=== PATIENT | male | born 1935 | race Caucasian/White ===

== ENCOUNTER 2020-04-29 23:52 | Emergency (ER) | payer OTHER ==
--- OUTSIDE RECORDS SUMMARY | 2020-04-29 23:55 | XMS REPORT | Continuity of Care Document ---
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, Medical systemic arterial Ce nter, (disorder) GUADALUPE [place] Hearing aid, Resolved Problem 12/20/2015 [place] device (physical Med ical object) Center CVA Active [facility] ILLNESS, Active [facility] UNSPECIFIED [facility] Medications Medication Details Route Status Patient Ordering Order Source Instructions Provider Date Lisinopril Notes: (Same [place] as: [address] [place] [address] Prinivil, Center Zestril) Plavix Notes: (Same Inactive [facility] As: Plavix) [address] [place] [address] clopidogrel 75 75 mg = 1 [place] mg oral tablet tab, PO, [address] [place] [address] Daily, # 90 Center tab, 2 Refill(s) Lipitor Notes: (Same No Longer [facility] As: Lipitor) [address] Iohexol Notes: (Same Inactive [facility] as:Omnipaque [address] [place] [address] 350). Center WASTE: F/P - Black; E - Municipal [facility] heparin sodium, Notes: No Longer [place] porcine 2500 porcine Active [address] [place] [address] UNT/ML heparin Center Injectable Solution Aspirin 325 MG Notes: (Do [place] [facility] Coated Not Crush) [facility] Medica l Tablet Do not crush Center or chew. Saline Flush Notes: (Same [place] Longer [place] 0.9% as: BD Active [address] [place] [address] Posiflush) [place] atorvastatin Notes: [place] Lipitor [address] saw palmetto 450 0 Refill(s) Active [facility] mg oral capsule 016 [facility] Fish Oil 1200 mg 1,200 mg = 1 Active [facility] oral capsule cap, PO, 016 Medical BID, 0 Center Refill(s) Centrum Silver 1 tab, PO, Active [place] Men's Daily, 0 016 Medical Refill(s) Center Saline Flush Notes: (Same No Longer [place] 0.9% as: BD Active 016 Medical Posiflush) Center Acetaminophen Notes: Do No Longer [place] not exceed 4 Active 016 Medical gm/day. Center (Same as: Tylenol) Sodium Chloride 1,000 mL, No Longer [place] 0.154 MEQ/ML Rate: 75 Active 016 Medical Injectable ml/hr, Center Solution Infuse over: 13.3 hr, Route: IV, Dosing Weight 65.455 kg, Total Volume: 1,000, Start date: 12/15/15 15:25:00 CDT, Duration: 30 day, Stop date: 01/14/16 15:24:00 CDT Lipitor Notes: (Same No Longer [facility] As: Lipitor) Active [address] [place] [address] heparin sodium, Notes: No Longer [place] porcine 2500 porcine Active 014 Medical UNT/ML heparin Center Injectable Solution Ibuprofen 400 MG Notes: (Same No Longer [facility] Oral Tablet as: Motrin) Active 014 Medical "Do Not Center Crush" Give with food. Aspirin 81 MG Notes: Do No Longer [place] Enteric Coated not crush or Active 014 Medi rosa Tablet chew. (Same Center As: Ecotrin) Saline Flush Notes: (Same [place] Longer [place] 0.9% as: BD Active 014 Medical Posiflush) Center Lipitor Notes: (Same Inactive [facility] As: Lipitor) [address] [place] [address] Tylenol Notes: Do No Longer [facility] not exceed 4 Active 014 Medical gm/day. Center (Same as: Tylenol) Saline Flush Notes: (Same No Longer [place] 0.9% as: BD Active 014 Medical Posiflush) Center atorvastatin Notes: ([place]: Lipitor) 014 [facility] Aspirin 81 MG Notes: Take Inactive [place] Chewable Tablet with food. 014 Medic al [place] aspirin 81 mg, PO, Active [facility] Daily, 0 014 Medical Refill(s) [place] Vitamin D3 1000 1,000 Active [facility] intl units oral IntlUnit = 1 014 Med ical tablet tab, PO, Center Daily, # 30 tab, 0 Refill(s) Garlic 1 tab, PO, Active [facility] preparation QAM, 0 014 Medical Refill(s) [place] Flax Seed Oil 1 tab, PO, [place] oral capsule BID, 0 014 [facility] Refill(s) [place] Centrum Silver 1 tab, PO, Active [place] oral tablet Daily, # 30 014 Medical tab, 0 Center Refill(s) Prilosec 40 mg, PO, Active [facility] Every Other 014 Medical Day, 0 Center Refill(s) lisinopril 10 mg 10 mg = 1 [place] oral tablet tab, PO, 014 Medical Daily, # 30 Center tab, 0 Refill(s) atorvastatin 10 10 mg = 1 Active [place] MG Oral Tablet tab, PO, 014 Medical [Lipitor] Bedtime, # Center 30 tab, 0 Refill(s) iodixanol Special Inactive [facility] Instructions 014 Medical : Dose = Center 2.2ml/kg, Max dose = 150ml -- "To be infused by Radiology Staff ONLY" Allergies, Adverse Reactions, Alerts Substance Category Reaction Severity Reaction Status Date Comments S ource type Reported PHENobarbital Assertion Drug Active [facility] [place] Immunizations No Data Provided for This Section Results Order Name Results Value Reference Date Interpretation Comments Mary rce Range CHEM PANEL Magnesium Lvl 1.9 1.8 - 2.4 12/16 [facility] CHEM PANEL Phosphorus 3.4 2.5 - 4.5 12/16 [facility] ELECTROLYTE AGAP 15.9 10.0 - 06/07 [facility] S 20. [facility] ELECTROLYTE eGFR 85 12/16 Result [facility] Comment: The Medical eGFR is Center calculated using the CKD-EPI formula. In most young, healthy individuals the eGFR will be >90 mL/min/1.73m2. The eGFR declines with age. An eGFR of 60-89 may be normal in some populations, particularly the elderly, for whom the CKD-EPI formula has not been extensively validated. Use of the eGFR is not recommended in the following populations:<b r/>
Indivi duals with unstable creatinine concentrations , including patients and those with serious co-morbid conditions.

Patient s with extremes in muscle mass or diet.

The data above are obtained from the National Kidney Disease Education Program (NKDEP) which additionally recommends that when the eGFR is used in patients with extremes of body mass index for purposes of drug dosing, the eGFR should be multiplied by the estimated BMI. ELECTROLYTE Calcium Lvl 8.9 8.5 - 10.5 12/16 [place] [facility] ELECTROLYTE Sodium Lvl 142 135 - 145 12/16 [facility] ELECTROLYTE Potassium Lvl 3.9 3.5 - 5.1 12/16 [place] [facility] ELECTROLYTE Creatinine 0.79 0.50 - 12/16 [facility] Lvl 1.40 [facility] ELECTROLYTE Chloride Lvl 107 95 - 109 12/16 [facility] ELECTROLYTE CO2 23 24 - 32 12/16 [facility] ELECTROLYTE Glucose Lvl 89 70 - 99 12/16 [facility] ELECTROLYTE BUN 13 7 - 22 12/16 [facility] HEMATOLOGY MCV 91.3 80.0 - 12/16 [facility] 94.0 [facility] HEMATOLOGY MCH 30.6 27.0 - 12/16 [facility] 31.0 [facility] HEMATOLOGY MCHC 33.5 32.0 - 12/16 [facility] 36.0 [facility] HEMATOLOGY RDW 13.8 11.5 - 12/16 [facility] 14.5 [facility] HEMATOLOGY Platelet 167 133 - 450 12/16 [facility] HEMATOLOGY MPV 7.8 7.4 - 10.4 12/16 [facility] HEMATOLOGY Hct 46.1 42.0 - 12/16 [facility] 54.0 [facility] HEMATOLOGY Hgb 15.5 14.0 - 12/16 18.0 [facility] HEMATOLOGY WBC 4.5 3.7 - 10.4 12/16 [facility] HEMATOLOGY RBC 5.06 4.70 - 12/16 6.10 [facility] HEMATOLOGY Monocytes 10.2 2.0 - 12.0 12/16 [facility] HEMATOLOGY Eosinophils 1.7 0.0 - 4.0 12/16 [facility] HEMATOLOGY Segs 65.3 45.0 - 12/16 75.0 [facility] HEMATOLOGY Lymphocytes 22.3 20.0 - 12/16 40.0 [facility] HEMATOLOGY Eosinophils # 0.1 0.0 - 0.5 12/16 [facility] HEMATOLOGY Basophils 0.5 0.0 - 1.0 12/16 [facility] HEMATOLOGY Segs-Bands # 2.9 1.5 - 8.1 12/16 [facility] HEMATOLOGY Monocytes # 0.5 0.0 - 0.8 12/16 [facility] HEMATOLOGY Lymphocytes # 1.0 1.0 - 5.5 12/16 [facility] CHEM PANEL eGFR 77 12/15 [facility] Comment: The Medical eGFR is Center calculated using the CKD-EPI formula. In most young, healthy individuals the eGFR will be >90 mL/min/1.73m2. The eGFR declines with age. An eGFR of 60-89 may be normal in some populations, particularly the elderly, for whom the CKD-EPI formula has not been extensively validated. Use of the eGFR is not recommended in the following populations:<b r/>
Indivi duals with unstable creatinine concentrations , including patients and those with serious co-morbid conditions.

Patient s with extremes in muscle mass or diet.

The data above are obtained from the National Kidney Disease Education Program (NKDEP) which additionally recommends that when the eGFR is used in patients with extremes of body mass index for purposes of drug dosing, the eGFR should be multiplied by the estimated BMI. CHEM PANEL BUN 11 7 - 22 12/15 [facility] CHEM PANEL Glucose Lvl 98 70 - 99 12/15 [facility] CHEM PANEL Sodium Lvl 144 135 - 145 12/15 [facility] CHEM PANEL Creatinine 0.94 0.50 - 12/15 [place] Lvl 1.40 /2015 [facility] CHEM PANEL Calcium Lvl 8.6 8.5 - 10.5 12/15 [facility] CHEM PANEL CO2 29 24 - 32 12/15 [facility] CHEM PANEL Chloride Lvl 110 95 - 109 12/15 [facility] CHEM PANEL Potassium Lvl 4.1 3.5 - 5.1 12/15 [facility] CHEM PANEL Total Protein 6.0 6.4 - 8.4 12/15 [facility] CHEM PANEL Albumin Lvl 3.5 3.5 - 5.0 12/15 [facility] CHEM PANEL ALT 28 0 - 65 12/15 [facility] CHEM PANEL Alk Phos 62 39 - 136 12/15 [facility] CHEM PANEL AST 22 0 - 37 12/15 [facility] CHEM PANEL Bili Total 1.3 0.2 - 1.3 12/15 [facility] CHEM PANEL A/G Ratio 1.4 0.7 - 1.6 12/15 [facility] CHEM PANEL B/C Ratio 12 6 - 25 12/15 [facility] CHEM PANEL Globulin 2.5 2.0 - 4.0 12/15 [facility] CHEM PANEL AGAP 9.1 10.0 - 12/15 20.0 [facility] HEMATOLOGY WBC 5.3 3.7 - 10.4 12/15 [facility] HEMATOLOGY Hgb 15.3 14.0 - 12/15 [place] 18.0 [facility] HEMATOLOGY RBC 5.04 4.70 - 12/15 [place] 6.10 [facility] HEMATOLOGY MCV 91.5 80.0 - 12/15 [place] 94.0 [facility] HEMATOLOGY Hct 46.1 42.0 - 12/15 [place] 54.0 /2015 [facility] HEMATOLOGY MCH 30.5 27.0 - 06 [place] 31.0 [facility] HEMATOLOGY RDW 13.6 11.5 - 12/15 [place] 14.5 /2015 [facility] HEMATOLOGY MCHC 33.3 32.0 - 12/15 [place] 36.0 /2015 [facility] HEMATOLOGY MPV 8.0 7.4 - 10.4 12/15 [facility] HEMATOLOGY Platelet 176 133 - 450 12/15 [facility] HEMATOLOGY Basophils 0.5 0.0 - 1.0 12/15 [facility] HEMATOLOGY Lymphocytes # 0.8 1.0 - 5.5 12/15 [facility] HEMATOLOGY Segs-Bands # 3.9 1.5 - 8.1 12/15 [facility] HEMATOLOGY Eosinophils # 0.1 0.0 - 0.5 12/15 [facility] HEMATOLOGY Monocytes # 0.5 0.0 - 0.8 12/15 [facility] HEMATOLOGY Lymphocytes 15.6 20.0 - 12/15 [place] 40.0 /2015 [facility] HEMATOLOGY Segs 74.3 45.0 - 12/15 [facility] 75.0 [facility] HEMATOLOGY Eosinophils 1.0 0.0 - 4.0 12/15 [facility] HEMATOLOGY Monocytes 8.6 2.0 - 12.0 12/15 [facility] URINE AND UA <=1.0 0.1 - 1.0 12/15 [facility] STOOL Urobilinogen mg/dL /2015 [facility] URINE AND UA Sq Epi None Seen 12/15 [facility] URINE AND UA Nitrite Negative Negative 12/15 [facility] (12/16/15 12:39 AM) [facility] URINE AND UA WBC 1 0 - 5 12/15 [facility] URINE AND UA Leuk Est Negative Negative 12/15 [facility] STOOL (12/16/15 12:39 AM) [facility] URINE AND UA RBC <1 0 - 2 12/15 [facility] URINE AND UA Blood Negative Negative 12/15 [facility] STOOL (12/16/15 12:39 AM) [facility] URINE AND UA Bili Negative Negative 12/15 [facility] STOOL *NA* /2015 Medical (12/16/15 12:39 AM) Center URINE AND UA Protein Negative Negative 12/15 [facility] STOOL mg/dL mg/dL [facility] URINE AND UA Ketones Negative Negative 12/15 [facility] mg/dL mg/dL [facility] URINE AND UA Glucose Negative Negative 12/15 [facility] mg/dL mg/dL [facility] URINE AND UA Spec Grav 1.010 <=1.030 12/15 [facility] URINE AND UA Turbidity Clear Clear 12/15 [facility] (12/16/15 12:39 AM) Medica l Center URINE AND UA Color Yellow Yellow 12/15 [facility] *NA* /2015 [facility] (12/16/15 12:39 AM) [place] URINE AND UA pH 7.5 5.0 - 8.0 12/15 [facility] CHEM PANEL Bili Total 0.9 0.2 - 1.3 12/14 [facility] CHEM PANEL Alk Phos 73 39 - 136 12/14 [facility] CHEM PANEL eGFR 78 12/14 [facility] Comment: The [facility] eGFR is Center calculated using the CKD-EPI formula. In most young, healthy individuals the eGFR will be >90 mL/min/1.73m2. The eGFR declines with age. An eGFR of 60-89 may be normal in some populations, particularly the elderly, for whom the CKD-EPI formula has not been extensively validated. Use of the eGFR is not recommended in the following populations:<b r/>
Indivi duals with unstable creatinine concentrations , including patients and those with serious co-morbid conditions.

Patient s with extremes in muscle mass or diet.

The data above are obtained from the National Kidney Disease Education Program (NKDEP) which additionally recommends that when the eGFR is used in patients with extremes of body mass index for purposes of drug dosing, the eGFR should be multiplied by the estimated BMI. CHEM PANEL AST 26 0 - 37 12/14 [facility] CHEM PANEL ALT 32 0 - 65 12/14 [facility] CHEM PANEL Albumin Lvl 4.0 3.5 - 5.0 12/14 [facility] CHEM PANEL Creatinine 0.92 0.50 - 12/14 [facility] Lvl 1.40 [facility] CHEM PANEL Sodium Lvl 144 135 - 145 12/14 [facility] CHEM PANEL CO2 30 24 - 32 12/14 [facility] CHEM PANEL Chloride Lvl 106 95 - 109 06/05 s [facility] CHEM PANEL Potassium Lvl 4.4 3.5 - 5.1 06 [facility] CHEM PANEL Calcium Lvl 8.8 8.5 - 10.5 06/ [facility] CHEM PANEL Total Protein 7.0 6.4 - 8.4 06 [facility] CHEM PANEL BUN 11 7 - 22 06/ [facility] CHEM PANEL Glucose Lvl 96 70 - 99 06/ [facility] CHEM PANEL B/C Ratio 12 6 - 25 06/ [facility] CHEM PANEL AGAP 12.4 10.0 - 06/05 20.0 [facility] CHEM PANEL A/G Ratio 1.3 0.7 - 1.6 / [facility] CHEM PANEL Globulin 3.0 2.0 - 4.0 06/ [facility] HEMATOLOGY RBC 5.22 4.70 - 0605 [place] 6.10 /2015 [facility] HEMATOLOGY RDW 13.7 11.5 - 0605 [place] 14.5 /2015 [facility] HEMATOLOGY MCHC 33.0 32.0 - 06/05 [place] 36.0 /2015 [facility] HEMATOLOGY Hgb 15.8 14.0 - 06/05 [place] 18.0 /2015 [facility] HEMATOLOGY MCH 30.3 27.0 - 06/05 [place] 31.0 /2015 [facility] HEMATOLOGY MCV 91.9 80.0 - 0605 [place] 94.0 /2016 [facility] HEMATOLOGY Hct 47.9 42.0 - 06/05 [place] 54.0 2016 [facility] HEMATOLOGY MPV 7.8 7.4 - 10.4 06/05 [facility] HEMATOLOGY Platelet 169 133 - 450 06/ [facility] HEMATOLOGY WBC 4.4 3.7 - 10.4 06/ [facility] HEMATOLOGY Lymphocytes # 1.0 1.0 - 5.5 06/ [facility] HEMATOLOGY Segs-Bands # 2.9 1.5 - 8.1 06 [facility] HEMATOLOGY Monocytes # 0.5 0.0 - 0.8 06/ MH [facility] HEMATOLOGY Lymphocytes 22.7 20.0 - 12/14 [place] 40.0 [facility] HEMATOLOGY Segs 65.7 45.0 - 12/14 [facility] 75.0 [facility] HEMATOLOGY Basophils 0.4 0.0 - 1.0 12/14 [facility] HEMATOLOGY Eosinophils 0.9 0.0 - 4.0 12/14 [facility] HEMATOLOGY Monocytes 10.3 2.0 - 12.0 12/14 [facility] LIPIDS CHD Risk 2.39 4.00 - 12/14 [facility] 7.30 [facility] LIPIDS LDL 67 <=99 mg/dL 12/14 [facility] (Calculated) [facility] LIPIDS VLDL 11 12/14 [facility] LIPIDS HDL 56 >=61 mg/dL 12/14 [facility] LIPIDS Chol 134 <=199 12/14 [facility] mg/dL [facility] LIPIDS Trig 53 <=149 12/14 [facility] mg/dL [facility] SPECIAL Hgb A1C 5.8 <=5.6 % 12/14 [facility] CHEMISTRY [facility] URINE AND UA Sq Epi None Seen 05/27 [facility] STOOL [facility] URINE AND UA Nitrite Negative Negative 05/27 [facility] (05/27/14 8:16 AM) [facility] URINE AND UA Blood Negative Negative 05/27 [facility] (05/27/14 8:16 AM) [facility] URINE AND UA Bili Negative Negative 05/27 [facility] STOOL *NA* /2013 Medical (05/27/14 8:16 AM) Cente r URINE AND UA Glucose Negative Negative 05/27 [facility] STOOL mg/dL mg/dL [facility] URINE AND UA 2.0 0.1 - 1.0 05/27 [facility] Urobilinogen /2013 [facility] URINE AND UA Ketones 20 mg/dL Negative 05/27 [facility] STOOL mg/dL [facility] URINE AND UA Mucus Few /LPF None Seen 05/27 [facility] STOOL /LPF /2013 [facility] URINE AND UA RBC <1 0 - 2 05/27 [facility] STOOL [facility] URINE AND UA Leuk Est Negative Negative 05/27 [facility] STOOL (05/27/14 8:16 AM) /2013 Medic al Center URINE AND UA WBC 2 0 - 5 05/27 [facility] STOOL [facility] URINE AND UA Spec Grav 1.025 <=1.030 05/27 [facility] STOOL [facility] URINE AND UA pH 6.0 5.0 - 8.0 05/27 [facility] STOOL [facility] URINE AND UA Turbidity Clear Clear 05/27 [facility] STOOL (05/27/14 8:16 AM) Medic al [place] URINE AND UA Color Yellow Yellow 05/27 [facility] STOOL *NA* /2013 Medical (05/27/14 8:16 AM) Cente r URINE AND UA Protein Negative Negative 05/27 [facility] STOOL mg/dL mg/dL [facility] CHEM PANEL POC 1.0 0.5 - 1.4 05/26 [facility] Creatinine [facility] CHEM PANEL eGFR 72 05/26 <sup>1</sup>Re [facility] [place] Comment: Medical The eGFR is Center calculated using the CKD-EPI formula. In most young, healthy individuals the eGFR will be >90 mL/min/1.73m2. The eGFR declines with age. An eGFR of 60-89 may be normal in some populations, particularly the elderly, for whom the CKD-EPI formula has not been extensively validated. Use of the eGFR is not recommended in the following populations:&l t;br/>
Ind ividuals with unstable creatinine concentrations , including patients and those with serious co-morbid conditions.

Patient s with extremes in muscle mass or diet.

The data above are obtained from the National Kidney Disease Education Program (NKDEP) which additionally recommends that when the eGFR is used in patients with extremes of body mass index for purposes of drug dosing, the eGFR should be multiplied by the estimated BMI. CARDIAC Troponin-I <0.02 0.00 - 05/26 [facility] ENZYMES 0.40 [facility] CARDIAC CK MB 0.5 0.5 - 3.6 05/26 [facility] ENZYMES [facility] CARDIAC Total CK 54 12 - 191 05/26 [facility] ENZYMES [facility] CARDIAC CK-MB INDEX 0.9 0.0 - 2.5 05/26 [facility] ENZYMES [facility] CHEM PANEL eGFR 82 05/26 <sup>2</sup>Re [facility] el[facility] Comment: Medical The eGFR is Center calculated using the CKD-EPI formula. In most young, healthy individuals the eGFR will be >90 mL/min/1.73m2. The eGFR declines with age. An eGFR of 60-89 may be normal in some populations, particularly the elderly, for whom the CKD-EPI formula has not been extensively validated. Use of the eGFR is not recommended in the following populations:&l t;br/>
Ind ividuals with unstable creatinine concentrations , including patients and those with serious co-morbid conditions.

Patient s with extremes in muscle mass or diet.

The data above are obtained from the National Kidney Disease Education Program (NKDEP) which additionally recommends that when the eGFR is used in patients with extremes of body mass index for purposes of drug dosing, the eGFR should be multiplied by the estimated BMI. CHEM PANEL Calcium Lvl 9.9 8.5 - 10.5 05/26 [facility] CHEM PANEL AGAP 12.4 10.0 - 05/26 20. [facility] CHEM PANEL Potassium Lvl 4.4 3.5 - 5.1 05/26 [place] [facility] CHEM PANEL CO2 31 24 - 32 05/26 [facility] CHEM PANEL Chloride Lvl 101 95 - 109 05/26 [facility] CHEM PANEL Sodium Lvl 140 135 - 145 05/26 [facility] CHEM PANEL BUN 15 7 - 22 05/26 [facility] CHEM PANEL Creatinine 0.9 0.5 - 1.4 05/26 [facility] CHEM PANEL Glucose Lvl 104 70 - 99 05/26 <sup>3</sup>In terpretive Medical Data: Adult Center reference range values reflect the clinical guidelines<br/ >of the [place] [employer]. HEMATOLOGY Basophils # 0.0 0.0 - 0.2 05/26 [facility] HEMATOLOGY Monocytes 6.1 2.0 - 12.0 05/26 [facility] HEMATOLOGY Eosinophils 1.6 0.0 - 4.0 05/26 [facility] HEMATOLOGY Lymphocytes 9.8 20.0 - 05/26 [place] 40.0 [facility] HEMATOLOGY Lymphocytes # 0.8 1.0 - 5.5 05/26 [place] /2013 [facility] HEMATOLOGY Basophils 0.2 0.0 - 1.0 05/26 [facility] HEMATOLOGY Segs-Bands # 6.5 1.5 - 8.1 05/26 [place] /2013 [facility] HEMATOLOGY Monocytes # 0.5 0.0 - 0.8 05/26 [place] /2013 [facility] HEMATOLOGY Eosinophils # 0.1 0.0 - 0.5 05/26 [place] [facility] HEMATOLOGY Segs 82.3 45.0 - 05/26 [place] 75.0 /2013 [facility] HEMATOLOGY Plt Morph Normal 05/26 [facility] (05/26/14 2:19 PM) /2013 [facility] HEMATOLOGY RBC Morph Normal 05/26 [facility] (05/26/14 2:19 PM) /2013 [facility] HEMATOLOGY PTT 29.8 22.9 - 05/26 <sup>5</sup>In [facility] as 35.8 terpretive Medical Data: Heparin Center Therapeutic Range: 57 - 92 Seconds HEMATOLOGY PT 13.7 12.0 - 05/26 [place] 14.7 [facility] HEMATOLOGY INR 1.05 0.85 - 05/26 <sup>4</sup>In [place] as 1.17 terpretive Medical Data: Center RECOMMENDED RANGES FOR PROTIME INR:
2.0-3.0 for most medical and surgical thromboembolic states.
2.5-3.5 for artificial heart valves and recurrent embolism.

INR SHOULD BE USED ONLY FOR PATIENTS ON STABLE ANTICOAGULANT THERAPY. HEMATOLOGY RDW 12.4 11.5 - 05/26 [place] 14.5 [facility] HEMATOLOGY Platelet 335 133 - 450 05/26 [facility] HEMATOLOGY MPV 7.0 7.4 - 10.4 05/26 [facility] HEMATOLOGY WBC 7.9 3.7 - 10.4 05/26 [facility] HEMATOLOGY MCV 89.6 80.0 - 05/26 [place] 94.0 [facility] HEMATOLOGY MCHC 32.5 32.0 - 05/26 [place] 36.0 [facility] HEMATOLOGY MCH 29.1 27.0 - 05/26 [place] 31.0 [facility] HEMATOLOGY RBC 4.68 4.70 - 05/26 [facility] 6.10 /2013 [facility] HEMATOLOGY Hct 41.9 42.0 - 05/26 [facility] 54.0 /2014 [facility] HEMATOLOGY Hgb 13.6 14.0 - 05/26 [facility] 18.0 /2013 [facility] Pathology Reports No Data Provided for This Section Diagnostic Reports Report Value Date Source Brain/Neck CTA EXAM: CTA BRAIN 12/16/2015 [facility] EXAM: CTA NECK Center DATE: 12/15/2015 10:35 PM CDT INDICATION: Cranial nerve palsy/palsies COMPARISON: CTA dated 05/26/2014, MRI dated 11/2015. TECHNIQUE: Rapid acquisition spiral CT images of the brain and neck were obtained between the aortic arch and the cranial vertex during intravenous infusion of iodinated contrast for the purposes of CT angiography . 3-D CT angiographic images are created using MIP technique at the acquisition workstation. The source images are also presented for interpretation. IV contrast: 60 mL Omnipaque DLP: 1175 mGy-cm FINDINGS: NECK CTA: Aortic arch: The great vesse ls originate from the aortic arch in the standard configuration. No origin stenosis is identified. The vertebral artery origins are patent bilaterally. Carotid arteries: There are atherosclerotic changes at the carotid bifurcations and carotid siphons, not resulting flow-limiting stenosis by NASCETcriteria. Vertebral arteries: There ar e atherosclerotic changes at the origin of the vertebral arteries. The vertebral arteries have a normal course, caliber and contour. Fibrous and emphysematous ch anges in both upper lobes remain similar in appearance as compared to the previous CTA. BRAIN CTA: The anterior and posterior c irculations have a normal appearance and a standard branching pattern. No branch occlusion, vascular injury, arteritis, vascular malformation or aneurysm is identified. The deep cerebral veins and major venous sinuses are normal. The brain parenchyma and other incidental struct ures are unremarkable. IMPRESSION: 1. Atherosclerotic changes at the carotid bifurcations, carotid siphons, and at the origin of the vertebral arteries. 2. No major intracranial branch occlusion. 3. Stable fibrous changes in the upper lobes. (All qualitative and quantit ative assessments of carotid bifurcation and proximal internal carotid artery stenosis are made referencing the distal internal carotid artery {NASCET criteria}.) Brain wo contrast MRI EXAM: MRI BRAIN WITHOUT CONTRAST 6 [facility] DATE: 60 11/29/2015 at 2209 hours Center INDICATION: Weakness COMPARISON: CT brain from 12/15/2015 and MRI bra in from 06/29/2014 TECHNIQUE: Multiplanar, multisequence MRI of the brain without contrast. IV contrast: None. FINDINGS: No restricted diffusion or hemorrhage. Scattered mild chronic microangiopathic changes. No hydrocephalus, midline sh ift, or extra-axial collection. Asymmetrically prominent cerebellar volume loss. Partial bilateral mastoid ef fusions with T1 hyperintensity in a focal opacification laterally on the right, suggesting proteinaceous contents. The paranasal sinuses are clear. Larger intracranial vascular flow voids are pres erved. Unremarkable marrow signal. IMPRESSION: No acute infarction. Mild chronic microangiopathic changes. Brain wo contrast MRI EXAM: MRI of the brain without contrast. 1 08/30/2013 [facility] DATE: 06/29/2014 CLINICAL HISTORY: Left facial droop. COMPARISON: CT brain 05/26/2014, MRI 05/26/2014 TECHNIQUE: Multiplanar image s of the brain were obtained in a high field magnet without contrast administration. DISCUSSION: Prominence of the cerebral s ulci due to volume loss. No acute infarct or hemorrhage. No hydrocephalus or midline shift. Major intracranial flow voids are maintained. 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 Persistent opacification of the right mastoid ai r cells. IMPRESSION: No acute intracranial abnorm ality and stable appearance since most recent MRI exam Ext Lower Venous EXAM: US UNILATERAL LOWER EXTREMITY VENOUS DOPP LER 05/28/2014 [facility] Doppler Unilat US Center DATE: 05/28/2014 at 1504 hours. INDICATION: Limb pain. COMPARISON: None available. TECHNIQUE: Multiplanar daniel nesha, color Doppler and spectral Doppler ultrasound images of the right lower extremity veins were obtained. FINDINGS: The right common femoral, gr eater saphenous, superficial femoral, and popliteal veins demonstrate normal compressibility and color Doppler signal. IMPRESSION: 1. Negative for right lower extremity deep vein thrombosis. Brain stroke protocol EXAM: MRI of the brain without contrast. 1 07/26[facility] DATE: 05/26/2014 CLINICAL HISTORY: Facial numbness. COMPARISON: CT brain 05/26/2014 TECHNIQUE: Exam was performed without contrast a dministration. DISCUSSION: No restricted diffusion. No hydrocephalus or mid line shift. No acute hemorrhage. Promine nce of the cerebral sulci due to volume loss. Few hyperintense T2 foci in the supratentorial white matter secondary to small vessel disease. Pineal region, pituitary gland, c raniocervical junction, orbi ts and internal auditory canals are unremarkable. Bilateral cataract surgery. Opacification of right mastoid air cells. IMPRESSION: No acute intracranial abnormality. Volume loss and chronic microvascular ischemic w tim matter changes. Opacification of right mastoid air cells. Brain/Neck Stroke EXAM: HEAD AND NECK CTA 05/26/2014 [facility] perfusion CTA EXAM: CT PERFUSION Center DATE: May 26, 2014 03:24:00 PM CLINICAL HISTORY: Facial numbness . TECHNIQUE: -Routine axial images of the brain were obtained before and after the administration of iodinated contrast. Reformatted images in the coronal, sagittal and axial plane were included. -Thin collimation axial ivonne yue postcontrast images were obtained from the thoracic inlet to the cranial vertex for the purposes of evaluating the vascular structures. Reformatted images in the coronal, sagittal and axial plane were included for inte rpretation. -Dynamic perfusion CT was ob tained after a second injection of iodinated contrast, centered in the region of interest. 125 cc of Visipaque were administered. FINDINGS: CTA OF THE HEAD AND NECK: The origin of the brachiocep halic, left carotid and left subclavian arteries are normal. There are atherosclerotic plaques at the carotid bifurcations, not resulting flow limiting stenosis by NASCETcrit eria. The branches of the an terior and middle cerebral arteries are normal bilaterally. There are plaques at the td gin of both vertebral arteries. Both vertebral arteries have normal origin and trajectory. The basilar artery, cerebellar branches and posterior cerebral arteries are normal. The deep cerebral veins and major venous sinuses are patent. Fibrous changes in the media l aspect of both upper lobes are demonstrated. There is emphysema in the right upper lobe. Effusion in and sclerosis in the posterior mastoid air cells on the right side is d emonstrated, consistent with chronic inflammator y process. CT PERFUSION: A focal area of abnormal cor tical signal in the left occipital lobe in the cerebral blood flow and mean transit time maps is identified, which is not seen in the other 2 perfusion maps, and does not cor respond to the branch occlusion. I believe this is artifactual in nature. IMPRESSION: 1. Atherosclerosis at the ca rotid bifurcations, without flow limiting stenosis by NASCETcriteria. 2. Atherosclerotic plaques at the origin of the vertebral arteries. 3. No major intracranial branch occlusion. 4. Questionable focal perfus ion deficit in the left occipital lobe, which I believe is artifactual in nature. 5. Pulmonary changes consistent with the known h istory of radiation therapy. All quantitative and qualita tive assessments of carotid bifurcation and proximal internal carotid artery stenosis are made at referencing the distal internal carotid artery. Chest 1view EXAM: CHEST 1 VIEW 05/26/2014 [facility] DATE: May 26, 2014 03:10:00 PM INDICATION: Focal neurological deficit COMPARISON: None TECHNIQUE: A single AP view of the chest with the patient in a lordotic position FINDINGS: The cardiac silhou ette is of normal size and shape. The thoracic aorta is mildly tortuous. Calcifications are seen within the aortic knob. An oval lucency superimposed upon the heart which may represent hiatal hernia. Th e lungs are clear. Pulmonary vascularity is normal. The costophrenic recesses are sharp without pleural effusion. Bones are osteopenic, yet intact. There is narrowing of bila teral acromioclavicular join ts. Marginal osteophyte formation, endplate sclerosis and disc space narrowing is seen at lower aspects of the thoracic spine. IMPRESSION: 1. Probable hiatal hernia. 2. Atherosclerosis with calcification of aortic knob. 3. Osteopenia. 4. Degenerative change withi n bilateral acromioclavicular joints and mid and lower portions of thoracic spine. Consultation Notes No Data Provided for This Section Discharge Summaries No Data Provided for This Section History and Physicals No Data Provided for This Section Vital Signs Vital Sign Value Date Comments Source Systolic (mm Hg) 125 12/17/2015 [facility] Diastolic (mm Hg) 70 12/17/2015 [facility] Respitory Rate 14 12/17/2015 [facility] Heart Rate 60 12/17/2015 [facility] Temperature Oral (F) 97.3 F 12/17/2015 [facility] Systolic (mm Hg) 125 12/17/2015 [facility] Diastolic (mm Hg) 73 12/17/2015 [facility] Respitory Rate 16 12/17/2015 [facility] Temperature Oral (F) 97.0 F 12/17/2015 [facility] Heart Rate 67 12/17/2015 [facility] Systolic (mm Hg) 136 12/17/2015 [facility] Center Diastolic (mm Hg) 79 12/17/2015 [facility] Heart Rate 62 12/17/2015 [facility] Respitory Rate 16 12/17/2015 [facility] Center Temperature Oral (F) 97.7 F 12/17/2015 [facility] Height 177.8 cm 12/15/2015 [facility] Weight 66.364 12/15/2015 [facility] BMI Calculated 20.99 12/15/2015 [facility] Center Respitory Rate 18 05/28/2014 [facility] Center Systolic (mm Hg) 133 05/28/2014 [facility] d[facility] Center Heart Rate 69 05/28/2014 [facility] Diastolic (mm Hg) 63 05/28/2014 [facility] Temperature Oral (F) 98.7 F 05/28/2014 [facility] Center Systolic (mm Hg) 147 05/28/2014 [facility] Center Diastolic (mm Hg) 84 05/28/2014 [facility] Temperature Oral (F) 98.1 F 05/28/2014 [facility] Heart Rate 73 05/28/2014 [facility] Respitory Rate 18 05/28/2014 [facility] Center Systolic (mm Hg) 115 05/28/2014 [facility] Center Heart Rate 65 05/28/2014 [facility] Diastolic (mm Hg) 74 05/28/2014 [facility] Temperature Oral (F) 97.5 F 05/28/2014 [facility] Center Respitory Rate 18 05/28/2014 [facility] Center Weight 65.455 05/26/2014 [facility] BMI Calculated 20.71 05/26/2014 [facility] [place] Height 177.8 cm 05/26/2014 [facility] [place] Encounters Location Location Encounter Encounter Reason Attending ADM DC Stat us Source Details Type Number For Provider Date Date [facility] [id number] Christiano 05/26 05/28 [facility] 9 Rittg /2013 [facility] Outpt Diag [id number] Hollie 06/29 06/30 [facility] 0 [facility] OBS [id number] Hollie 12/15 12/16 [facility] Observation 7 [facility] Procedures Procedure Code Date Perfomer Comments Source Cataract surgery [id number] [facility] Procedure<sup>1</parada [id number] tumor removal [facility] Prostate [id number] [facility] Small bowel [id number] [facility] Assessment and Plan Assessment and Plan Date Source Extracted from:Title: Hospitalist Consult Note 12/17/2015 [facility] Author: Paulina Martinez MD Date: 12/16/15 Assessment/Plan Patient with hypertension here with fac ial droop. Evaluation is negative thus far for acute CVA. Blood pressure has been acceptable, off home lisinopril. Creatinine acceptable. I would continue to otilia tor closely, and resume lisinopril 10mg dailyonce BP>135/90. Stroke management is per primary team; ASA and plavix have been initiated with no evidence of bleeding or thrombocytopenia. Prophylaxis Heparin Disposition [facility] Hospitalist service is signing off. Please page [phone] with any concerns. Extracted from:Title: STROKE HISTORY AND PHYSICAL Author: Timoteo Unger DO Date: 12/15/15 Stroke History and Physical Requesting Physician/Service:OSH transfer from [facility] Chief Complaint:facial droop and slurred speech History of Present Illness: Tammy George is a 80 year old male with PMHx of HTN, HLD, throat cancer, and a history of a prior stroke in 2013 with no residual weakness who presents with facial droop. Mr. George reports w aking up on 12/14 at 7:15 with what he not iced as swelling of his left jaw. He does not report any changes in vision, weakness, or abnormal sensory findings. Mr. George continued with his daily activities until his woke up at 10 am and for toro him to go to the outside hospital. The reports slurring of speech but patient denies that he has noticed any changes. This is very similar to the events surrounding his stroke in 2013, which al so occurred on the left side of his jaw but involved facial drooping instead of swelling. Recently seen in stroke clinc by Dr. Adam and Dr. Karl navas 11/08/15. Review of Systems: 1. GEN: no fever, chills, weight loss, fatigue 2. EYES: no blurred vision, double vision 3. CARDIO: no chest pain, palpitations 4. PULM: no shortness of breath, cough 5. GI: no nausea, vomiting, diarrhea, no abdominal pain 6. : no frequency, dysuria, burning, hematuria, no urin marii incontinence 7. NEURO: see HPI 8. SKIN: no rash or lesion 9. ENDOCRINE: endorses constipation, no palpitation diarr hea or fatigue 10. 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 Medications: lisinipril 10 mg, aspirin 81, lipitor 10 mg centrum silver, garlic, flax seed, fish oil, vitD3, saw palmetto, Allergies:phenobarbital Physical Exam: Vitals Tmp(F) Tmp(C) Ttype B P MAP Pulse RR SpO2 FIO2 ETCO2 12/14 20:45 ---- ---- ---- - ---- --- 51 16 97 --- --- 12/14 20:11 97.1 36.17 axil ----- --- --- -- --- --- --- 12/14 20:00 ---- ---- ---- 1 99 52 28 96 --- --- 12/14 18:06 ---- ---- ---- 1 104 51 -- 98 --- --- 12/14 17:00 ---- ---- ---- 1 105 54 -- 98 --- --- 12/14 16:00 ---- ---- ---- 1 74/77 110 58 -- 98 --- --- 12/14 15:38 ---- ---- ---- 1 76/81 117 58 20 98 --- --- 12/14 15:24 97.6 36.44 axil ----- --- --- -- --- --- --- 24 Hr Tmax: 97.6F (36.44c) at 12/14 15:2 4 Vital Signs cover the past 24 hours. 24 Hr Tmin: 97.1F (36.17c) at 12/14 20: 11 Weights are the last 5 in 60 days, plus initial. Date Wt(kg) Wt(lb-oz) Ht(cm) Ht(in) Wt Chg(gm ) BMI BSA 12/14 (initial) 66.364 146-0 177.80 70.00 21.0 1.81 GENERAL: Awake, alert, cooperative HEENT: - Normocephalic and atraumatic, mild left sided facial droop LUNGS - Clear to auscultation bilaterally with no wheez es CV - S1S2 RRR, no m/r/g, equal pulses bilaterally. 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 Level of Consciousness; 0-alert 1-drowsy 2-stupor 0 1b. LOC Questions month and age; 0-both 1-one 2-neithe r 0 1c. LOC Commands open/close eyes, director of assessing /release non-paretic hand; 0-both 1-one 2-neither 0 2. Best Gaze; 0-nl 1-partial 2-forced gaze 0 3. Visual Cortes; 0-No visual loss. 1-Partial hemianop ia 2-Complete 3-Bilateral 1 4. Facial Palsy; 0-none 1-minor 2-partial 3-complete 0 5. Motor - R arm; 0-No drift 1-Drift 2 -Some antigravity 3-No antigravity 4- No movement 0 6. Motor - R leg; 0-No drift 1-Drift 2 -Some antigravity 3-No antigravity 4- No movement 0 7. Motor - L arm; 0-No drift 1-Drift 2 -Some antigravity 3-No antigravity 4- No movement 0 8. Motor - L leg; 0-No drift 1-Drift 2 -Some antigravity 3-No antigravity 4- No movement 0 9. Limb Ataxia; 0 absent 1 - 1limb 2 - 2 limbs 0 10. Sensory; 0-nl 1-partial loss 2-dense loss 0 11. Best Language; 0-nl 1-mild/mod 2-severe 3-mute 0 12. Dysarthria; 0-nl 1-mild/mod 2-severe x-untest able 0 13. Extinction and Inattention (formerly Neglect); 0-none 1-partial 2-complete TOTAL SCORE 1 EKG: sinus bradycardia with sinus arrhythmia Imaging: CT head: performed at OSH, WNL MRI brain w/o contrast: pending Carotid Doppler 11/08/15: <50% bilateral stenosis . mild atherosclerotic plaque of the bilateral internal carotid arteries 2 D Echo 05/25: Conclusions: Both ventricles normal in size and systolic function. Both atria normal in size. Unable to estimate RVSP. No intracardiac masses. No pericardial effusion. Mild dilatation of the proximal ascending aorta: 38 mm. No intracardiac shunt by saline contrast study, at rest and with the Valsalva maneuver. Lab w/up: Labs from OSH: Coags, LFTs, CBC, BMP within normal limits ASSESSMENT:Tammy George is a 80 year ol d male with PMHx of HTN, HLD, throat cancer, and a history of a prior stroke in 2013 with no residual weakness who presents with facial droop. Mr. Larson n reports waking up on 12/14 at 7:15 with what he noticed as swelling of his left jaw. He does not report any changes in vision, weakness, or abnormal sensory findings. Mr. George continued with his daily activities until his woke up at 10 am and forced him to go to the outside hospital. The reports slurring of speech but patient denies that he has noticed any changes. This is very similar to the events surrounding his stroke in 201 4, which also occurred on the left side of his jaw but involved facial drooping instead of swelling. Because of history of radiation to the neck he is at risk for advanced atherosclerosis. Diagnosis: ischemic stroke Etiology: TBD PLAN 1. Acute Ischemic Stroke: - ASA 325 mg po daily - Lipitor 80 mg po daily, order lipid panel and hepatic panel, adjust Lipitor accordingly - Sliding scale insulin for tight glucose control, send A 1c - MRI of brain - 2D echo with bubble study - PT/OT/ ST evaluation - DVT Prophylaxis: Heparin 5000 units sq q8h, SCD, JOVITA - Code Status: Full code - Disposition:pending Patient was discussed with the stroke fellow Dr. Ge Alejo . Timoteo Unger, Child Neurology Fellow, PGY-3 , ext [phone] STROKE STAFF I have personally evaluated the patient. i have reviewed the resident 's note detailed above. I agree with the resident's findings, assessment and plan as outlined in the note except as detail ed below. In addition, i have reviewed t he patient's neuroimaging findings which reveal: CT: no obvious acute change CTA/CTP: 1. Atherosclerotic changes at the caroti d bifurcations, carotid siphons, and at the origin of the vertebral arteries. 2. No major intracranial branch occlusion. 3. Stable fibrous changes in the upper lobes. MRI/MRA: negative for acute infarction exam: has mild dysarthria and left facial droop impression/Plan: unclear etiology for this patient's dysa rthria and left facial droop. MRI brain is negative for acute ischemic stroke, vascular imaging is stable. He is still symptomatic so would expect to see s omething on MRI if this were indeed isch emic. Will consider seizure, however, he remembers the event. Can have outpatient follow-up. If diagnostic evaluation is unremarkable, can discharge tomorrow morning with outpatient follow-up. THE FOLLOWING WERE PRESENT ON ADMISSION: PRINCIPAL DIAGNOSIS: I63.311 Cerebral infarction due to thrombosis of right middl e cerebral artery acuity: acute Location: right frontal lobe vessel involved: right MCA Etiology: unknown Diagnostic Evaluation: follow-up study reports, telemetry Treatment Plan: ASA/DVT; , statin for go al LDL<70, PT/OT/ST, goal SBP today 110 140 as vessels are open RESIDUAL DEFICITS DUE TO ACUTE INFARCT: left facial droop dysarthria I10, essential HTN -Goal SBP today: normal E78.5, hyperlipidemia Group C-mixed hyperlipidemia 49545 Extracted from:Title: Clinical Document 05/28/2014 [facility] Author: Henry Huitron MD Date: 05/28/14 Date of Admission: 05/26/14 Date of Discharge: 05/28/14 ADMITTING DIAGNOSIS: L facial droop, suspicion for acute stroke Essential HTN DISCHARGE DIAGNOSIS: L facial droop, ruled out stroke per MRI Essential HTN dyslipidemia RLE swelling s/p fall, DVT ruled out CONSULTS: stroke PROCEDURES: MRI: no stroke Chief complaint , HPI and HOSPITAL COURSE: Pt with essential HTN came with L facial droop, MRI negative for stroke. He needs f/u with stroke clinic as mentioned below. Continue ASA , statin Discharge physical exam: GENERAL: Patient awake, alert, oriented to time, place, pers on. No distress HEENT: no pallor, no icterus, no JVD, no carotid bruit LUNGS: Clear to auscultation bilaterally, no wheeze, no crac kles CVS: S1, S2 +, Regular rhythm, no murmur, no edema GI: Bowel sounds +, soft, nontender, nondistended, no organo megaly MUSKULOSKELETAL: No weakness, no restriction of movements SKIN: RLE swollen with some bruising noted, improving per pt NEURO: L facial droop +, normal strengt h in all extremities, sensation normal, reflexes normal Discharge condition: Stable Discharge to : Home Discharge Meds: Please see home medication reconciliation F/U: [facility] [phone] on June 29, 2014 at 3:30pm with Dr. Pruitt I have seen and examined the patient on the day of discharge Time spent on discharge: Approximately 35 minutes, explaining about the diagnosis Core measures: patient did not have stroke Extracted from:Title: Stroke Follow Up Author: Louise Nobles Date: 05/28/14 Arranged for patient to follow up with [facility] [phone] on June 29, 2014 at 3:30pm with Dr. Pruitt. Patient will complete a MRI brain without contrast prior to the appointment at 2:30 pm at the [facility] . Patient's is aware and agreeable to appointment. Will remain available as needed. 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 Huitron Chief complaint: Left facial droop History of Present illness: pt is a 79 yo active man who woke up thi s AM and noticed L facial droop and hence went to OSH and transferred here for concern fo stroke. He does not have any weakness/ other symptoms. He was evaluated by stroke team, NIHSS 2 and admitted to observation for furt her work up Pt fell from a ladder a week ago and has R LE swelling Past Medical History: Essential HTN Dyslipidemia Zenker's diverticulum throat cancer Past Surgical History: Zenker's diverticulum repair throat cancer surgery Ex lap Family History: no history of Diabetes, hypertension, heart disease, cancer Social history: no current smoking/ alcohol/ drug abuse quit smoking long time ago Allergies: Phenobarbital Review of systems: General: no fever, no chills, no fatigue, no weight change HEENT: no headache, no blurry vision, no runny nose, no sore throat Respiratory: no cough, no dyspnea Cardiac: no chest pain, no palpitations, no orthopnea GI: no nausea, no vomiting, no abdominal pain, no diarrhea : no dysuria, no hesitancy/ no urgency SKIN/ Integumentary: no rash, no ulcers, no itching Muskuloskeletal: RLE pain, no weakness HEMATOLOGIC: No easy bruising, bleeding, or petechiae ENDOCRINE: No heat or cold intolerance, no excessive sweating, no polyuria, no polydipsia. Neuro: no headache, no blurry vision Psychiatry: no depression, no mood problems Home meds: Asp 81 mg ( hasnt taken since Wednesday) Lipitor 10 mg Lisinopril 10 mg garlic powder flax seed Fish oil, B3, centrum silver . Vitals and Temp: Vitals Tmp(F) Pulse BP RR SpO2 FIO2 05/26 18:02 ---- 52 105/57 20 97 --- 05/26 15:42 ---- 65 142/71 18 98 --- 05/26 13:56 98.5 58 145/74 16 98 --- 24 Hr Tmax: 98.5F (36.94c) at 05/26 13:5 6 Vital Signs are the last 5 in the past 48 hours. Physical Examination: GENERAL: Patient awake, alert, oriented to time, place, pers on. No distress HEENT: no pallor, no icterus, no JVD, no carotid bruit LUNGS: Clear to auscultation bilaterally, no wheeze, no crac kles CVS: S1, S2 +, Regular rhythm, no murmur, no edema GI: Bowel sounds +, soft, nontender, nondistended, no organo megaly MUSKULOSKELETAL: No weakness, no restriction of movements SKIN: no rash, no ulcers NEURO: L facial droop, normal strength i n all extremities, sensation normal, reflexes normal NIHSS: 2 Labs (Last four charted values) WBC 7.9 (MAY 26) Hgb L 13.6 (MAY 26) Hct L 41.9 (MAY 26) Plt 335 (MAY 26) Na 140 (MAY 26) K 4.4 (MAY 26) CO2 31 (MAY 26) Cl 101 (MAY 26) Cr 0.9 (MAY 26) BUN 15 (MAY 26) Glucose Random H 104 (MAY 26) Ca 9.9 (MAY 26) PT 13.7 (MAY 26) INR 1.05 (MAY 26) PTT 29.8 (MAY 26) Troponin <0.02 (MAY 26) CK MB 0.5 (MAY 26) Total CK 54 (MAY 26) EKG: sinus rhythm with PAC's Assessment and Plan: 79 yo with L facial droop L facial droop: - acute stroke likely - Stroke maryam on board - MRI, 2D echo, HbA1c, lipid panel to follow - ASA and statin HTN: - essential - BP low normal - Permissive HTn for now Dyslipidemia: - on statin RLE swelling: - s/p fall - dopplers to r/o DVT DVT prophlaxis: Heparin sub Q Code status: full DISPO: expect 1 Mn stay MHUTS is primary. Pager: [phone] Extracted from:Title: Stroke Consult Note Author: Alvaro Golden MD PHD Date: 05/26/14 STROKE TEAM / NEUROLOGY - CONSULT NOTE Attending of Record:Dr Rm Patient Name: Tammy George Date of Admission:05/26/14 Requesting Physician/Service: transfer from OSH CC: L facial droop HISTORY OF PRESENT ILLNESS: The patient is a 79 yo man with PMH of H TN , HLD , throat cancer s/p chemoradiation and surgery in 2002, who p/w L facial droop. The patient was LSN at 9 PM last night when he went to bed. He awoke ay 8 AM , at 9 AM, when he went to brush his teeth he noted drooping of his face. His noted his speech sounded " cottony". She took his to an OSH. His NIHSS was 2 for facial droop and his CT was neg for any bleed. His SBP was 173. At the OSH he was given lopressor and his BP was lowered to 130s. He was also given an asp. The patient takes a baby asp daily , how ever he has'nt taken one the since Wednesday as he recently had a EGD/colonoscopy. He has also had a recent fall from a lad ded a few day back. no head trauma, no fractures. REVIEW OF SYSTEMS: GEN: no fever, chills, weight loss, fatigue EYES: no blurred vision, double vision CARDIO: no chest pain, palpitations PULM: no shortness of breath, cough GI: no nausea, vomiting, diarrhea, no abd pain : no frequency, dysuria, hematuria NEURO: see HPI SKIN: no rash or lesion MSK: no pain, swelling, redness, heat in muscles, no limited ROM, weakness, or atrophy, no cramps LYMPH/IMMUNO: No lymph node enlargement/tenderness, no heat/ cold intolerance PAST MEDICAL HISTORY: HTN, HLD, Zenker's diverticulum, thro at cancer PAST SURGICAL HISTORY: Zenker's diverti culum sx, throat cancer surgery, SBO with removal of a part of his SI FAMILY MEDICAL HISTORY: M_ osteoprorosis, F - young unk nown SOCIAL HISTORY: continues to work, lives with , comp letely functional and independent. Quit smoking in 1971, denies alcohol or IVDA MEDICATIONS: Asp 81 mg ( hasnt taken since Wednesday) Lipitor 10 mg Lisinopril 10 mg garlic powder flax seed Fish oil, B3, centrum silver ALLERGIES: Phenobarb PHYSICAL EXAM: Vitals and Temp: Vitals Tmp(F) Pulse BP RR SpO2 FIO2 05/26 15:42 ---- 65 142/71 18 98 --- 05/26 13:56 98.5 58 145/74 16 98 --- 24 Hr Tmax: 98.5F (36.94c) at 05/26 13:5 6 Vital Signs are the last 5 in the past 48 hours. GENERAL: Awake, alert, NAD. HEENT: - Normocephalic and atraumatic; MMM LUNGS - Clear to auscultation bilaterally with no wheezes CV - S1S2 RRR, no m/r/g, equal pulses bilaterally. ABDOMEN - Soft, nontender, nondistended with normoactive BS NEURO: Mental status: Awake, alert, and interac tive. Answers questions and follows commands appropriately. Cranial nerves: Pupils equal, round, and reactive. R____3__mm L_3____mm. Visual cortes intact to confrontation. Eye movements full without nystagmus.L facial droop. Facial sensation is intact to light t ouch. Tongue and palate midline. Good st rength in trapezius and sternocleidomastoid bilaterally. Motor: Normal bulk and tone. Strength is 5/5 proximally and distally. Sensation: Intact to light touch, pinpri ck, temperature and vibration throughout. Coordination: No dysmetria on finger-nose Reflexes: R Biceps 2+, Triceps 2+, Brachioradialis 2+, Amanda la 2+, Ankle 2+. L Biceps 2+, Triceps 2+, Brachioradialis 2+, Patella 2+, Ankle 2+. Toes downgoing bilaterally. Gait: narrow-based and steady with appropriate armswing and stride length. NIH Stroke Scale (NIHSS) 0 1a. Level of Consciousness; 0-alert 1-drowsy 2-stupor 3 -comatose 0 1b. LOC Questions month and age; 0-both 1-one 2-neit her 0 1c. LOC Commands open/close eyes, gr ip/release non-paretic hand; 0-both 1- one 2-neither 0 2. Best Gaze; 0-nl 1-partial 2-forced gaze 0 3. Visual Cortes; 0-No visual loss. 1- Partial hemianopia 2-Complete 3-Bilateral 2 4. Facial Palsy; 0-none 1-minor 2-partial 3-complete 0 5. Motor - R arm; 0-No drift 1-Drift 2-Some antigravity 3-No antigravity 4-No movement 0 6. Motor - R leg; 0-No drift 1-Drift 2-Some antigravity 3-No antigravity 4-No movement 0 7. Motor - L arm; 0-No drift 1-Drift 2-Some antigravity 3-No antigravity 4-No movement 0 8. Motor - L leg; 0-No drift 1-Drift 2-Some antigravity 3-No antigravity 4-No movement 0 9. Limb Ataxia; 0 absent 1 - 1limb 2 - 2 limbs 0 10. Sensory; 0-nl 1-partial loss 2-dense loss 0 11. Best Language; 0-nl 1-mild/mod 2-severe 3-mute 0 12. Dysarthria; 0-nl 1-mild/mod 2-severe x-unte stable 0 13. Extinction and Inattention (former ly Neglect); 0-none 1-partial 2-complete TOTAL SCORE 2 SIGNIFICANT LABS: 24hr Labs 05/26 1419 Glucose Lvl 104 H BUN 15 Creatinine Lvl 0.9 Sodium Lvl 140 Potassium Lvl 4.4 Chloride Lvl 101 CO2 31 AGAP 12.4 Calcium Lvl 9.9 eGFR 82 Total CK 54 Troponin-I <0.02 CK MB 0.5 CK MB Index 0.9 PT 13.7 INR 1.05 PTT 29.8 WBC 7.9 RBC 4.68 L Hgb 13.6 L Hct 41.9 L MCV 89.6 MCH 29.1 MCHC 32.5 RDW 12.4 Platelet 335 MPV 7.0 L Segs 82.3 H Monocytes 6.1 Lymphocytes 9.8 L Eosinophils 1.6 Basophils 0.2 Segs-Bands # 6.5 Lymphocytes # 0.8 L Monocytes # 0.5 Eosinophils # 0.1 Basophils # 0.0 RBC Morph Normal Plt Morph Normal DIAGNOSTIC TESTS: CT Head: neg acute CTA/Perfusion: no proximal occlusions ASSESSMENT: 79 yo man with PMH of HTN , HLD , throat cancer s/p chemoradiation and surgery in 2002, who p/w L facial droop in the setting of being off his aspirin for a few days. Likely R MCA territory stroke etio- small vessel disease vs cardioembolic RECCOMENDATIONS ASA 81 mg daily Atorvastatin 80mg daily HOB flat Telemetry CXR MRI brain to evaluate for infarct TTE with bubble to evaluate for cardiac source of embolus. Can consider 30 day event monitor depending of TTE report Stroke labs: fasting lipid panel and hemoglobin A1c . IV NS 75 cc/hr. Permissive hypertension (SBP <220) for a cute ischemic stroke not treated with IV t-PA. Treat fevers and blood sugars aggressively. PT/OT/ON LINE CSR consults - rehab assessments DVT prophylaxis, SCDs Alvaro Golden Neurology PGY3 Pager [phone] The patient was d/w stroke fellow Dr Olivia automotive power electronics engineer STROKE NEUROLOGY STAFF I have seen and examined the patient. Fu rthermore, I have discussed the case with and reviewed 's note and agree with the history, exam, assessment and plan. See note below for additions an d/or exceptions and my findings. I have personally viewed the patient's radiographic studies and laboratory tests. Assessment / Plan: 04022 TIA-435.9 Cerebral atherosclerosis-437.0 Hypertension - 401.9 79 years old woke up yesterday with left facial droop that resolved by the time he was transferred here (less than 24 hrs). Most probably a TIA. He used to be on ASA but stopped it few days ago for colonoscopy. MRI: negative for acute ischemia. CTA: very mild atherosclerosis, no flow limiting stenosis. TTE: pending. Current suspected etiology: Under invest igation, cardioembolic vs atherosclerotic. Continue evaluation: transthoracic echoc ardiogram, LDL/HBA1c, cardiac telemetry, laboratory tests, follow-up reports from neuroimaging. Treatment: restart aspirin, statin. Continue PT/OT/speech therapy evaluation and treatment. F/E/N - -Patient tolerating po diet. DVT prophylaxis - -SCDs+TEDs - Heparin SQ I have talked the patient and available family in detail about the warning signs of stroke; the importance of their early recognition and activation of EMS. The stroke risk factors have also been clearl y identified and communicated to the pat ient. The importance of taking prescribed medication for secondary stroke prevention and being regular in follow up appointments has also been emphasized. Kirby Rm M.D. [facility] [phone] (pager) Plan of Care No Data Provided for This Section Social History Social History Date Source Social History TypeResponse 12/15/2015 [facility] Alcohol Never Smoking Status Former smoker; Type: Cigarettes; Started at age: 18.0; Stopped at age: 46; Exposure to Tobacco Smoke None; Cigarette Smoking Last 365 Days No; Reg Smoking Cessation Counseling No Social History TypeResponse 05/26/2014 [facility] Herm tammy Smoking Status Never smoker, Exposure to Tobacco Smoke None, Cigarette Smoking Last 365 Days No, Reg Smoking Cessation Counseling No Family History No Data Provided for This Section Advance Directives No Data Provided for This Section Functional Status No Data Provided for This Section
[2020-04-30] MEDS ORDERED: TETANUS & DIPHTHERIA TOX,ADULT 0.5 ML VIAL ONE (00:28)
--- NOTE | 2020-04-30 02:06 | ER ---
Nurse's Notes [facility] Name: Brian Brantley Age: 85 yrs Sex: Male : 1935 Arrival Date: 04/29/2020 Time: 23:53 Bed 2 Private MD: Diagnosis: Laceration scalp. Contusion back. S/P Fall Presentation: 04/30 00:16 Chief complaint: Patient states: he slipped getting out of the tub hitting his head and bb receiving a lac to the back of his head denies LOC. Care prior to arrival: None. Mechanism of Injury: Fall from standing position. Trauma event details: Injury occurred in the [facility], Injury occurred: at home. Injury occurred: April 30, 2020. 00:16 Acuity: RONNY 4 bb 00:16 Method Of Arrival: Ambulatory bb 00:19 Coronavirus screen: At this time, the client does not indicate any symptoms associated bb with coronavirus-19. Ebola Screen: No symptoms or risks identified at this time. Initial Sepsis Screen: Does the patient meet any 2 criteria? No. Patient's initial sepsis screen is negative. Does the patient have a suspected source of infection? No. Patient's initial sepsis screen is negative. Risk Assessment: Do you want to hurt yourself or someone else? Patient reports no desire to harm self or others. Onset of symptoms was April 30, 2020. Trauma Activation: Alert Physician: ED Physician; Name: Mack; Notified At: 00:04; Arrived At: 00:04 Physician: General Surgeon; Name: ; Notified At: 00:04; Arrived At: Physician: Radiology; Name: Pankaj Grant; Notified At: 00:04; Arrived At: Physician: Respiratory; Name: ; Notified At: 00:04; Arrived At: 00:05 Physician: Lab; Name: ; Notified At: 00:04; Arrived At: Historical: - Allergies: 00:22 Phenobarbital; bb - Home Meds: 00:22 Plavix 75 mg Oral tab 1 tab once daily [Active]; lisinopril 10 mg Oral tab 1 tab once bb daily [Active]; Lipitor 10 mg Oral tab 1 tab once daily [Active]; risperil [Active]; Centrum Silver Oral [Active]; Vit B 12 [Active]; VIT D 3 [Active]; Ocuvite oral oral [Active]; - PMHx: 00:22 Cataracts; CVA; Hyperlipidemia; Hypertension; throat cancer; bb - PSHx: 00:22 Colon Resection; Tumor Removal; bb - Immunization history: Last tetanus immunization: unknown. - Social history:: Smoking status: Patient/guardian denies using tobacco, the patient reports quitting approximately 45 years ago. Screenin:16 Abuse screen: Denies threats or abuse. Tuberculosis screening: No symptoms or risk bb factors identified. 00:24 Nutritional screening: No deficits noted. Fall Risk Fall in past 12 months (25 points). bb Secondary diagnosis (15 points) impaired mobility, Ambulatory Aid- None/Bed Rest/Nurse Assist (0 pts). Gait- Weak (10 pts.). Mental Status- Oriented to own ability (0 pts). Total Rueda Fall Scale indicates High Risk Score (45 or more points). Fall prevention measures have been instituted. Side Rails Up X 2 Family Present and informed to notify staff if the need to leave the bedside As available patient and family educated on Fall Prevention Program and Strategies. Primary Survey: 00:16 NO uncontrolled hemorrhage observed. A: The patient is alert. Airway: patent. bb Breathing/Chest: Respiratory pattern: regular, Respiratory effort: spontaneous, unlabored. Circulation: Heart tones present. Disability Alert. 00:20 Exposure/Environment: All clothing and personal items were removed. Forensic evidence sg collection is not deemed to be indicated at this time. Items placed in patient belonging bag. There is no evidence of uncontrolled external bleeding. Obvious injury(ies) are noted at this time: laceration to scalp. Reassessment Airway Airway Patent Oxygen No O2 Oral cavity Clear +Gag reflex Breathing/Chest Respiratory pattern Regular Respiratory effort Spontaneous Unlabored Breath sounds Clear Chest inspection Symmetrical. Reassessment Circulation Heart tones Present Pulses Palpable Color Lares Temperature Warm Dry Disability Alert. Secondary Survey: 00:20 HEENT: Head Other laceration observed to the scalp, no active bleeding noted at this sg time, a dressing has been applied until evaluation by the ERp. Gastrointestinal: No deficits noted. : No signs and/or symptoms were reported regarding the genitourinary system. Musculoskeletal: Circulation, motion, and sensation intact. Range of motion: intact in all extremities. Injury Description: Head injury sustained to scalp is closed, did not have loss of consciousness, was sustained 30-60 minutes ago. Assessment: 00:20 General: Appears in no apparent distress. well groomed, well developed, well nourished, sg Behavior is calm, cooperative, appropriate for age. Vital Signs: 00:16 BP 150 / 89; Pulse 68; Resp 18 S; Temp 98.2(O); Pulse Ox 97% on R/A; Weight 63.05 kg bb (R); Height 5 ft. 10 in. (177.80 cm) (R); Pain 3/10; 00:16 Body Mass Index 19.94 (63.05 kg, 177.80 cm) bb Miko Coma Score: 00:16 Eye Response: spontaneous(4). Verbal Response: oriented(5). Motor Response: obeys bb commands(6). Total: 15. Trauma Score (Adult): 00:16 Eye Response: spontaneous(1); Verbal Response: oriented(1); Motor Response: obeys bb commands(2); Systolic BP: > 89 mm Hg(4); Respiratory Rate: 10 to 29 per min(4); [place] Score: 15; Trauma Score: 12 ED Course: 04/29 23:53 Patient arrived in ED. bp1 04/30 00:03 Tremayne Giron MD is Attending Physician. pkl 00:16 Patient has correct armband on for positive identification. Bed in low position. Call bb light in reach. Side rails up X 1. Adult w/ patient. Pulse ox on. NIBP on. 00:16 Patient maintains SpO2 saturation greater than 95% on room air. bb 00:17 Triage completed. bb 00:18 Thermoregulation: warm blanket given to patient. sg 00:22 Arm band placed on Patient placed in an exam room, on a stretcher, on pulse oximetry. bb Family accompanied patient. 01:03 CT Traumagram (Head C Spine CAP wo con) In Process Unspecified. EDMS 01:40 Wound care: to laceration located on scalp was cleaned with soap and water, dressed sg with Neosporin, 4X4s, a pressure dressing, Patient tolerated well. 01:54 Jose Catherine RN is Primary Nurse. sg 02:10 No provider procedures requiring assistance completed. Patient did not have IV access sg during this emergency room visit. Administered Medications: 00:19 Drug: Tetanus-Diphtheria Toxoid Adult 0.5 ml {Toddler Guide: [employer]. Exp: 08/31/2022. Lot #: [id number]. } Route: IM; Site: right deltoid; Intake: 00:16 PO: 0ml; Total: 0ml. hugo Outcome: 02:05 Discharge ordered by . bianca 02:10 Discharged to home ambulatory, with family. sg 02:10 Condition: good 02:10 Discharge instructions given to patient, family, Instructed on discharge instructions, follow up and referral plans. wound care, Demonstrated understanding of instructions, follow-up care, wound care. 02:10 Patient's length of stay was not longer than 2 hours. 02:11 Patient left the ED. sg Signatures: Dispatcher [employer] EDJose Espitia, RN RN Tremayne Cassidy MD MD pkl Ballard, Brenda, RN RN bb [place], Winsy wh [place], [facility]
--- NOTE | 2020-04-30 02:06 | EDPHYS ---
Physician Documentation [facility] Name: Brian Brantley Age: 85 yrs Sex: Male : 1935 Arrival Date: 04/29/2020 Time: 23:53 Bed 2 Private MD: ED Physician Tremayne Giron HPI: 04/30 01:21 This 85 yrs old Male presents to ER via Ambulatory with complaints of Head pkl Injury Without LOC-Adult, Laceration To Head, Fall Injury. 01:21 Details of fall: The patient fell from an upright position, while standing. Onset: The pkl symptoms/episode began/occurred just prior to arrival. Associated injuries: The patient sustained injury to the head, contusion, laceration, 3 cm(s). Historical: - Allergies: 00:22 Phenobarbital; bb - Home Meds: 00:22 Plavix 75 mg Oral tab 1 tab once daily [Active]; lisinopril 10 mg Oral tab 1 tab once bb daily [Active]; Lipitor 10 mg Oral tab 1 tab once daily [Active]; risperil [Active]; Centrum Silver Oral [Active]; Vit B 12 [Active]; VIT D 3 [Active]; Ocuvite oral oral [Active]; - PMHx: 00:22 Cataracts; CVA; Hyperlipidemia; Hypertension; throat cancer; bb - PSHx: 00:22 Colon Resection; Tumor Removal; bb - Immunization history: Last tetanus immunization: unknown. - Social history:: Smoking status: Patient/guardian denies using tobacco, the patient reports quitting approximately 45 years ago. ROS: 01:21 Eyes: Negative for injury, pain, redness, and discharge, ENT: Negative for injury, pkl pain, and discharge, Neck: Negative for injury, pain, and swelling, Cardiovascular: Negative for chest pain, palpitations, and edema, Respiratory: Negative for shortness of breath, cough, wheezing, and pleuritic chest pain, Abdomen/GI: Negative for abdominal pain, nausea, vomiting, diarrhea, and constipation. 01:21 Back: Positive for pain with movement, of the lower back. 01:21 : Negative for urinary symptoms. 01:21 MS/extremity: Negative for acute changes, injury or acute deformity. 01:21 Skin: Negative for rash. 01:21 Neuro: Positive for altered mental status, loss of consciousness. Exam: 01:21 Eyes: Pupils equal round and reactive to light, extra-ocular motions intact. Lids and pkl lashes normal. Conjunctiva and sclera are non-icteric and not injected. Cornea within normal limits. Periorbital areas with no swelling, redness, or edema. 01:21 Head/face: Noted is a laceration(s), that is superficial, that is linear, 3 cm(s), of the occipital scalp. 01:21 Eyes: Exam is negative for acute changes. 01:21 ENT: Exam is negative for acute changes. 01:21 Neck: Exam negative for nuchal rigidity. 01:21 Chest/axilla: Exam negative for acute changes. 01:21 Cardiovascular: Rate: normal, Rhythm: regular. 01:21 Respiratory: the patient does not display signs of respiratory distress, Respirations: normal, Breath sounds: are clear throughout. 01:21 Abdomen/GI: Bowel sounds: normal, Palpation: abdomen is soft and non-tender, in all quadrants. 01:21 Back: pain, that is mild, of the lower back. 01:21 : Exam negative for acute changes. 01:21 Musculoskeletal/extremity: Exam is negative for acute changes. 01:21 Skin: Exam negative for rash. 01:21 Neuro: Orientation: is normal, Mentation: is normal, Cranial nerves: grossly normal, Motor: is normal. Vital Signs: 00:16 BP 150 / 89; Pulse 68; Resp 18 S; Temp 98.2(O); Pulse Ox 97% on R/A; Weight 63.05 kg bb (R); Height 5 ft. 10 in. (177.80 cm) (R); Pain 3/10; 00:16 Body Mass Index 19.94 (63.05 kg, 177.80 cm) bb [place] Coma Score: 00:16 Eye Response: spontaneous(4). Verbal Response: oriented(5). Motor Response: obeys bb commands(6). Total: 15. Trauma Score (Adult): 00:16 Eye Response: spontaneous(1); Verbal Response: oriented(1); Motor Response: obeys bb commands(2); Systolic BP: > 89 mm Hg(4); Respiratory Rate: 10 to 29 per min(4); Miko Score: 15; Trauma Score: 12 MDM: 00:04 Patient medically screened. pkl 02:02 Data reviewed: vital signs, nurses notes, radiologic studies, CT scan. ED course: pkl Discussed CT Scan results with patient and . Advised to follow with his PCP in 2 to 3 days Patient and understood instructions.. 04/30 00:08 Order name: CT Traumagram (Head C Spine CAP wo con) pkl Administered Medications: 00:19 Drug: Tetanus-Diphtheria Toxoid Adult 0.5 ml {Director Of Property Management: [employer]. Exp: 08/31/2022. Lot #: [id number]. } Route: IM; Site: right deltoid; Disposition: 04/30/20 02:05 Discharged to Home. Impression: Laceration scalp. Contusion back. S/P Fall. - Condition is Stable. - Medication Reconciliation Form, Thank You Letter, Antibiotic Education, Prescription Opioid Use form. - Follow up: Private Physician; When: 2 - 3 days; Reason: Re-evaluation by your physician. - Problem is new. - Symptoms have improved. Signatures: Dispatcher [employer] EDMS Jose Catherine RN RN Tremayne Cassidy MD MD pkMarybeth Piper RN RN Kendra Puri Corrections: (The following items were deleted from the chart) 02:11 02:05 04/30/2020 02:05 Discharged to Home. Impression: Laceration scalp. Contusion sg back. S/P Fall. Condition is Stable. Forms are Medication Reconciliation Form, Thank You Letter, Antibiotic Education, Prescription Opioid Use. Follow up: Private Physician; When: 2 - 3 days; Reason: Re-evaluation by your physician. Problem is new. Symptoms have improved. pkl
[2020-04-30 02:37] VITALS: BP 150/89; TEMP 98.2; O2SAT 97
--- NOTE | 2020-04-30 09:44 | RAD REPORT ---
EXAM DESCRIPTION: Head C Spine Cap Wo Con CLINICAL HISTORY: Fall COMPARISON: None Available. TECHNIQUE: Multiple helical axial tomographic images were obtained of the head, cervical spine, ches t, abdomen, and pelvis without intravenous contrast. Coronal and sagittal reformatted images were obt ained. This exam was performed according to our departmental dose-optimization program, which include s automated exposure control, adjustment of the mA and/or kV according to patient size and/or use of iterative reconstruction technique. FINDINGS: Head: There is no acute intracranial hemorrhage. No mass. No midline shift. No ventriculomegaly. Perez-white matter differentiation is maintained. There is minimal ethmoid sinus mucosal thickening. Mastoid air cells and middle ear spaces are clear. Changes of lens replacement noted. Osseous structures are unremarkable. There is incomplete pneumatization of the right mastoid. Surroun ding soft tissues are unremarkable. Cervical spine: No evidence for an acute fracture of the cervical spine. Multilevel disc space narrowing and osteophy te formation demonstrated with facet arthropathy. There is multilevel neural foraminal and central ca nal narrowing. Osteopenia is present. Surrounding soft tissues are unremarkable. Chest: Thyroid gland: unremarkable. Axilla: unremarkable. Aorta: Aortic atherosclerosis is present. No evidence of aortic aneurysm. Mediastinum: There is a moderate size hiatal hernia. No adenopathy. Heart: Heart is mildly enlarged. Coronary artery calcifications noted. Lungs/airways: There are linear opacities associated with mild bronchiectasis in the medial upper lob e regions which can be seen with posttreatment fibrotic changes. No consolidation. Airways are patent . There is a 6 mm nodule in the right lower lobe near the diaphragm (series 401, image 41). Pleural spaces: No significant pleural effusion. No pneumothorax. Osseous: Thoracic spine osteophytes are present. No obvious acute fracture line. There is decreased h eight of the vertebral T3 with mildly increased density suggestive of a chronic compression fracture. Soft tissues: Unremarkable. Abdomen and pelvis: Liver: Homogenous attenuation is demonstrated. Gallbladder/biliary: Gallbladder appears unremarkable. No calcified gallstones. No evidence of biliar y ductal dilatation. Pancreas: Unremarkable. Spleen: Unremarkable. Adrenals: Unremarkable. Kidneys and ureters: No evidence of renal or ureteral stones. No hydronephrosis. There is a 2.8 cm hy podense cyst in the upper pole of the left kidney. Bladder: Unremarkable. Pelvic organs: Prostate appears enlarged. Bowel: No evidence of bowel obstruction. There are postoperative changes of the small bowel. No bowel wall thickening. Appendix is not well seen. Peritoneum: No free air. No significant free fluid. Lymph nodes: Unremarkable. Vasculature: Aortic atherosclerosis is present. Soft tissues: Unremarkable. Bones: Degenerative changes of the lumbar spine noted. No evidence of an acute fracture. IMPRESSION: 1. No acute intracranial process. 2. No evidence of an acute fracture of the cervical spine. 3. Decreased vertebral body height of T3 suggestive of a compression fracture which is favored to be chronic. If there is strong suspicion for underlying acute fracture in this region, follow-up MRI can be obtained. 4. Otherwise, no evidence of an acute process within the chest, abdomen, or pelvis. 5. Right lower lobe 6 mm nodule. Follow-up chest CT in 6-12 months can be obtained for follow-up as a ppropriate using Fleischner Society criteria. 6. Moderate size hiatal hernia. 7. Bilateral upper lobe paramedian pulmonary fibrotic changes which can be seen with prior radiation treatment. 8. Enlarged prostate. Electronically signed by: Jitendra Nguyen MD 04/30/2020 1:57 AM CDT Due to temporary technical issues with the PACS/Fluency reporting system, reports are being signed by the in house radiologist without review as a courtesy to ensure prompt reporting. The interpreting r adiologist is fully responsible for the content of the report.
== END 2020-04-30 02:11 | disposition home or self-care (01) ==
LOC: ER 23:52
DX: S01.01XA Laceration without foreign body of scalp, initial encounter (principal); W18.2XXA Fall in (into) shower or empty bathtub, initial encounter; Y93.89 Activity, other specified; Y92.002 Bathroom of unspecified non-institutional (private) residence as the place of occurrence of the external cause; Z23 Encounter for immunization; Z79.01 Long term (current) use of anticoagulants; Z88.5 Allergy status to narcotic agent; Z86.73 Personal history of transient ischemic attack (TIA), and cerebral infarction without residual deficits; E78.5 Hyperlipidemia, unspecified; I10 Essential (primary) hypertension
CPT/HCPCS: 70450; 71250; 72125; 90471; 90714; 99284; G0390

== ENCOUNTER 2023-11-16 08:35 | Day surgery (SDC) | payer OTHER ==
[2023-11-03 10:59] LABS: Absolute Lymphocytes (CBC) 0.9 K/uL (0.7-4.9); Absolute Monocytes 0.6 K/uL (0.1-1.3); Absolute Neutrophil 4.3 K/uL (1.8-8.0); Basophils % 0.8 % (0-1.3); Eosinophils % 0.8 % (0-4.4); MCH 30.2 pg (27.0-35.0); MCHC 32.6 g/dL (32.0-36.0); MCV 92.4 fL (80-100); MPV 7.6 fL (7.6-11.3); Monocytes % 10.1 % (3.3-12.3); Neutrophils % 73.3 % (41.7-73.7); Nucleated Red Blood Cells % 0.1 % (0-0); Platelets 214 thou/uL (152-406); RBC Red Blood Cell Count 4.98 M/uL (4.33-5.43); Red Cell Distribution Width 14.1 % (12.1-15.2)
--- NOTE | 2023-11-03 11:09 | RAD REPORT ---
EXAM DESCRIPTION: Abi Lovett And Aung (2 Views)11/03/2023 11:00 am CLINICAL HISTORY: pre op for surgery hypertension COMPARISON: 2018 FINDINGS: The lungs are hyperaerated. 1 centimeter opacity right upper lobe. 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 Oblique and apical lordotic views recommended for further evaluation. 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
[2023-11-03 11:41] LABS: PT Prothrombin Time 11.4 SECONDS (9.5-12.5); Protime INR 1.04
--- NOTE | 2023-11-04 16:45 | EKG ---
Test Date: 2023-11-03 Test Time: 10:41:01 Upholstery Covers Inspector: JUSTO MEASUREMENT RESULTS: Intervals: Rate: 63 VT: 230 QRSD: 74 QT: 388 QTc: 397 [place]: P: 78 VT: 230 QRS: 5 T: 49 INTERPRETIVE STATEMENTS: Sinus rhythm with 1st degree AV block Otherwise normal ECG Compared to ECG 04/01/2017 09:24:01 First degree AV block now present Left-axis deviation no longer present Electronically Signed On 11-04-23 16:42:06 CDT by John Sierra
[2023-11-16] MEDS ORDERED: FENTANYL CITR 100 MCG/2 ML ONE ×2 (08:44→09:47)
[2023-11-16] MEDS ORDERED: ONDANSETRON 4 MG/2 ML VIAL ONE ×2 (08:44→09:46)
[2023-11-16] MEDS ORDERED: propofoL 200 MG/20 ML VIAL IV ONE ×2 (08:44→09:47)
[2023-11-16] MEDS ORDERED: CEFAZOLIN SODIUM 1 GM/VIAL ONE (08:59)
[2023-11-16] MEDS: Ringers Lactate 1,000 ML IV ONE (09:10)
[2023-11-16] MEDS: CIPROFLOXACIN HCL 500 MG TAB ONE (09:28)
[2023-11-16] MEDS ORDERED: LIDOCAINE 1% MPF 5 ML VIAL ONE (09:47)
[2023-11-16] MEDS ORDERED: EPHEDRINE SULF 50 MG/ML VIAL ONE (10:57)
[2023-11-16] MEDS ORDERED: dexAMETHasone 10 MG/ML VIAL ONE (11:14)
[2023-11-16] MEDS: Gemcitabine 26.3 ML IV ONE (12:33)
[2023-11-16 13:16] VITALS: TEMP 97
[2023-11-16] MEDS: HYDROMORPHONE HCL 1 MG/ML INJ ONE (13:34)
[2023-11-16] MEDS: PHENAZOPYRIDINE 100MG TAB PO ONE (13:42)
[2023-11-16] MEDS ORDERED: CODEINE 30MG/APAP 300MG TAB PO PRN (13:47)
[2023-11-16] MEDS ORDERED: PHENAZOPYRIDINE 100MG TAB PO ONE ×2 (13:47→16:05)
[2023-11-16 14:24] VITALS: O2SAT 98
[2023-11-16 15:26] VITALS: BP 151/80
[2023-11-16] MEDS ORDERED: OXYBUTYNIN ER 5 MG TAB PO ONE ×2 (16:05→16:09)
[2023-11-16] MEDS: OXYBUTYNIN ER 5 MG TAB PO ONE (16:10)
--- NOTE | 2023-11-17 03:30 | OP ---
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 Principle Procedures: 1.Transurethral resection of a bladder tumor. 2.Urethral Roe catheter placement. 3.Instillation of intravesical gemcitabine 2 g in 50 cc normal saline chemotherapy. Indication For Procedure: Mr. Brantley is an 88-year-old gentleman who presented to the Urology Clinic with gross hematuria. He underwent evaluation which revealed the presence of a sessile nodular mass involving the dome of his bladder posteriorly. He was counseled on the need for removal of that mas s and recommended to have perioperative adjuvant gemcitabine chemotherapy to decrease the risk of gonzalez or cell circulating and re-implanting to decrease the risk of recurrence. Procedure In Detail: The patient was consented in the preoperative holding area before being transfe rred to the operative suite where general anesthesia was induced. He was given Ancef 1 g IV antimicr obial prophylaxis, and pneumo boots were provided for DVT prophylaxis. He was placed in the lithotom y position, padded and secured to the table appropriately, and his genitalia was prepped with Hibicle ns before being draped in standard fashion. The case was begun using a 26-Kiswahili resectoscope sheath and a visual obturator to traverse the urethra and into the bladder with ease. The bladder was deco mpressed of fluid and urine and then surveyed in its entirety. As had previously been noted, the dom inant mass of the tumor involving the posterior dome of the bladder slightly to the patient's right w as again identified, measuring about 2-3 cm in diameter. It was sessile nodular as opposed to frondu lar and papillary. There were satellite lesions extending off the periphery of the tumor, likely ass ociated with contact of the tumor cells with a normal mucosa and those additional satellite papillary tumors were noted overlying the left ureteral orifice as well. As a result, I utilized a thin bipol ar loop and normal saline irrigation to began resecting the nodular primary tumor mass. Extensive re section was required, because it was a very vascular tumor and bled copiously. Multiple rounds of El lik evacuation were required to maintain visualization and to remove the resected tumor chunks. Kimberly selby, I was able to reach the base of the tumor where I continued to resect to ensure definitive mu scularis propria had been sampled and that all visible tumor involving the cisneros of the bladder were completely resected. I then continued the resection to ensure all abnormal appearing mucosa at the p eriphery was similarly removed or at minimum fulgurated until the entire patch and satellite patches of tumor involved in the dome were completely removed. I then fulgurated each bleeding vessel in a p inpoint fashion in order to achieve hemostasis and then surveyed the remainder of the bladder and add ressed the smaller neophyte papillary tumors developing, particularly the 1 lateral to the left urete ral orifice. After ensuring the bladder resected site was hemostatic, I then noted continued oozing which was coming from the prostatic urethra. Despite efforts to try to fulgurate this, that bleeding persisted; so I required resection of largely the left jon prostate on the bladder neck to the mid apical region in order to be able to fulgurate that and achieve adequate hemostasis. All prostate ch ips were similarly evacuated from within the bladder, and once that was completed, I again surveyed t he entirety of the bladder and the prostatic urethra to ensure fulguration and hemostasis even though the prostatic urethra was persistently oozy even after multiple rounds of resection and fulguration. Ultimately, adequate enough hemostasis was obtained such that I passed an 18-Kiswahili catheter into h is bladder and put a 15 cc of sterile water in the balloon. I then decompressed his bladder fluid an d urine, and irrigated it to remove all air bubbles and debris. I then retrograde instilled the 2 g of gemcitabine in 50 cc normal saline into his bladder and Danielle clamp to keep it within the bladder before connecting it to a leg bag. He was then taken out of the lithotomy position, his genitalia wa s towed off in order to prevent exposure to the genitalia by the chemotherapy, potentially leaking fr om around the catheter, and then he was awakened from general anesthesia. He was transferred to a [facility] before being transferred to the recovery room in good condition. Complications: None. Discharge Disposition: He will be discharged with a new urethral Roe catheter placed to him give a period of bladder rest before a voiding trial can be accomplished. He should be scheduled for a voi ding trial at the earliest on Wednesday or potentially on Wednesday. He may receive a dose of Cipro or Lev aquin at the time of the voiding trial as he will run out of the antibiotics within the next 24-48 ho urs that was prescribed preoperatively. Subsequent followup should be established in about 2 weeks' time to discuss the results of the pathology and determine next steps in management. JASON/DARRIAN Voice ID: [id number] Report ID: [id number]
== END 2023-11-16 16:55 | disposition home or self-care (01) ==
LOC: OR 08:35
PROVIDERS: ATTEND Urology
PROC: 3E0K705 Introduction of Other Antineoplastic into Genitourinary Tract, Via Natural or Artificial Opening (ICD-10-PCS; 2023-11-16)
PROC: 0VB08ZZ Excision of Prostate, Via Natural or Artificial Opening Endoscopic (ICD-10-PCS; 2023-11-16)
PROC: 0TBB8ZZ Excision of Bladder, Via Natural or Artificial Opening Endoscopic (ICD-10-PCS; principal; 2023-11-16 10:30)
DX: C67.9 Malignant neoplasm of bladder, unspecified (principal); N20.0 Calculus of kidney; R31.0 Gross hematuria
CPT/HCPCS: 52235; 51720; 52630; 93005; 87088; 85025; 87086; 80048; 36415; 85610; 88307; 87077; 87186; 71046; J9201; J2704; J2001; J3010; J1100; J1170; J2405; J7120; 88305; J0690

== ENCOUNTER 2023-12-21 11:44 | Day surgery (SDC) | payer OTHER ==
[2023-12-09 13:50] LABS: Absolute Lymphocytes (CBC) 0.8 K/uL (0.7-4.9); Absolute Monocytes 0.6 K/uL (0.1-1.3); Absolute Neutrophil 3.6 K/uL (1.8-8.0); Basophils % 0.5 % (0-1.3); Eosinophils % 0.9 % (0-4.4); Hemoglobin 13.1 g/dL (13.6-17.9); Lymphocytes % 15.5 % (15.3-44.8); MCH 30.4 pg (27.0-35.0); MCHC 32.9 g/dL (32.0-36.0); MCV 92.6 fL (80-100); MPV 7.3 fL (7.6-11.3); Monocytes % 11.7 % (3.3-12.3); Neutrophils % 71.4 % (41.7-73.7); Platelets 317 thou/uL (152-406); RBC Red Blood Cell Count 4.32 M/uL (4.33-5.43); Red Cell Distribution Width 14.9 % (12.1-15.2)
[2023-12-09 13:52] LABS: PT Prothrombin Time 11.8 SECONDS (9.5-12.5); Protime INR 1.07
[2023-12-09 14:05] LABS: Anion Gap 6.1 mEq/L (5.0-15.0); Potassium 4.1 mEq/L (3.5-5.1)
[2023-12-21] MEDS ORDERED: Ringers Lactate 1,000 ML IV ONE (11:53)
[2023-12-21] MEDS: GENTAMICIN 100 MG/100 ML BAG 100 ML IV ONE (12:07)
[2023-12-21] MEDS ORDERED: LIDOCAINE 1% MPF 5 ML VIAL ONE (12:07)
[2023-12-21] MEDS ORDERED: FENTANYL CITR 100 MCG/2 ML ONE (12:07)
[2023-12-21] MEDS ORDERED: propofoL 200 MG/20 ML VIAL IV ONE (12:07)
[2023-12-21] MEDS: AMPICILLIN SODIUM 2 GM/VIAL VIAL ONE (12:37)
[2023-12-21] MEDS ORDERED: EPHEDRINE SULF 50 MG/ML VIAL ONE (12:48)
[2023-12-21] MEDS ORDERED: CODEINE 30MG/APAP 300MG TAB PO PRN (13:40)
[2023-12-21] MEDS ORDERED: PHENAZOPYRIDINE 100MG TAB PO ONE (14:17)
[2023-12-21] MEDS: PHENAZOPYRIDINE 100MG TAB PO ONE (14:20)
[2023-12-21 15:30] VITALS: BP 136/66; TEMP 96.5; O2SAT 100
--- NOTE | 2023-12-21 23:38 | OP ---
Surgeon: CHARLIE HADDAD Preoperative Diagnosis: History of pathologic stage T1 high-grade urothelial carcinoma. Postoperative Diagnoses: 1.History of pathologic stage T1 high-grade urothelial carcinoma. 2.Prostatic fossa bleeding. Principal Procedure: 1.Transurethral resection of left lateral wall resection site. 2.Transurethral resection and fulguration of the prostate. 3.Placement of urethral Roe catheter. Indication For Procedure: Mr. Brantley is an 88-year-old gentleman, who presented to the Urology Clini c with gross hematuria, was found to have a large tumor emanating from the left lateral wall. He und erwent prior TURBT with intravesical gemcitabine and presents today for restaging given the pathologi c stage T1 observed. Procedure In Detail: The patient was consented in the preoperative holding area before being transfe rred to the operative suite where general anesthesia was induced. He was given ampicillin 2 g and ge ntamicin 80 mg IV antimicrobial prophylaxis, and pneumo boots were provided for DVT prophylaxis. He was placed in the lithotomy position, padded and secured to the table appropriately. His genitalia w ere prepped with Hibiclens and he was draped in standard fashion. The case was begun using a 22-Fren ch rigid cystoscope to traverse the urethra and into the bladder. There was noted to be a significan t degree of hematuria emanating from the prostatic urethra that made visualization within the bladder difficult. As a result, I irrigated his bladder on multiple occasions and attempted to use the Bugb ee electrode to fulgurate some of the bleeding within the prostatic fossa. This was unsuccessful; so I switched the cystoscope for a 26-Trinidadian resectoscope and the sterile water for glycine, and then b tere to attempt to fulgurate the prostatic fossa. There was a lot of formed clot that was obscuring the bleeding beneath within the prostatic fossa; so I had to resect a lot of that formed clot and luzmaria e additional tissue in order to get to the base of the bleeding vessels and be able to fulgurate them accordingly. Extensive fulguration in multiple areas of the prostate was required owing to the prio r resection of the prostate that was done as a part of the original staging. However, after removal of a lot of old formed clot and some additional residual prostate tissue, I was able to successfully fulgurate and quell most of the oozing coming from the prostate. I Ellik evacuated all of the prosta te chips from within his bladder and then surveyed the bladder in its entirety. There were no papill marii mucosal lesions noted throughout. In fact, he had healed so well from the prior resection and ch emotherapy that the resection site scar was very tiny in 2 spots just lateral to the left ureteral or ifice. So, I then resected the sites of prior scar and that was sent for pathologic analysis. I ful gurated the base and then ensured all prostate and/or otherwise fluff material within the bladder was removed. I also re-fulgurated the prostate tissue for any residual oozing that was going on before ultimately removing the scope, leaving the bladder full. I then placed an 18-Trinidadian coude tipped cat heter via his urethra into his bladder with ease and placed about 25 cc of sterile water in the ballo on. The returning fluid was clear. The catheter was connected to a leg bag, and he was taken out of the lithotomy position. He was then awakened from general anesthesia, transferred to a stretcher, a nd then transferred to the recovery room in good condition. Complications: None. Discharge Disposition: He will need to follow up to discuss the pathology of the repeat resection, a nd as long as no more advanced bladder cancer is identified, which I do not expect, then we will disc uss the role for adjuvant BCG. As far as the urethral Roe catheter placed, given his advanced age, I would like him to take the catheter home tonight and he will be given a voiding trial tomorrow, wh ich can be done either at home or in the office. If he is going to do it at home, I am going to inst ruct him to remove it at 7 a.m. and notify us if he is unable to void adequately and easily by 1 p.m. JASON/MODL Voice ID: [id number] Report ID: [id number]
== END 2023-12-21 15:07 | disposition home or self-care (01) ==
LOC: OR 11:44
PROVIDERS: ATTEND Urology
PROC: 0TBB8ZX Excision of Bladder, Via Natural or Artificial Opening Endoscopic, Diagnostic (ICD-10-PCS; 2023-12-21)
PROC: 0TCB8ZZ Extirpation of Matter from Bladder, Via Natural or Artificial Opening Endoscopic (ICD-10-PCS; principal; 2023-12-21 13:15)
DX: R31.0 Gross hematuria (principal); C67.9 Malignant neoplasm of bladder, unspecified; R39.9 Unspecified symptoms and signs involving the genitourinary system; I10 Essential (primary) hypertension; E78.5 Hyperlipidemia, unspecified; E03.9 Hypothyroidism, unspecified
CPT/HCPCS: 52001; 52224; 87088; 85025; 87086; 80048; 36415; 85610; 88305; 87077; 87186; J1580; J2704; J2001; J3010; J0290; J7120

== ENCOUNTER 2024-04-25 07:38 | Day surgery (SDC) | payer OTHER ==
[2024-04-25] MEDS ORDERED: OXYBUTYNIN ER 5 MG TAB PO ONE (08:12)
[2024-04-25 08:14] LABS: Specific Gravity 1.015 (1.005-1.030); Urine Bilirubin NEGATIVE (Negative); Urine Blood Negative (Negative); Urine Clarity Clear (Clear); Urine Color Light-Yellow (Yellow); Urine Glucose NEGATIVE (Negative); Urine Ketones NEGATIVE (Negative); Urine Microscopic Reflex YN NO UMIC; Urine Nitrite NEGATIVE (Negative); Urine Protein NEGATIVE (Negative); Urine Urobilinogen Normal (Normal)
[2024-04-25] MEDS: OXYBUTYNIN ER 5 MG TAB PO SCH (08:22)
[2024-04-25] MEDS ORDERED: DIAZEPAM 5 MG TABLET ONE (08:30)
[2024-04-25] MEDS: LIDOCAINE JELLY 2% 5 ML SYRINGE TOP ONE (08:38)
[2024-04-25] MEDS: DIAZEPAM 5 MG TABLET PO ONE (08:38)
[2024-04-25 10:04] VITALS: BP 146/81; TEMP 97.4; O2SAT 100; BMI 17.9
[2024-04-25] MEDS ORDERED: Gemcitabine 26.3 ML IS ONE (13:00)
[2024-04-25] MEDS ORDERED: DOCEtaxeL 37.5 MG in NA CHLORIDE 0.9% 48.125 ML IS ONE (13:00)
--- NOTE | 2024-04-25 17:48 | P.PN ---
Date of Service: 04/25/24 Preprocedure diagnosis: pT1a HG urothelial carcinoma of the bladder p negative cystoscopy 04/12/24 Postprocedure diagnoses: Same Principal procedures: Insertion of urethral Roe catheter Sequential gemcitabine-docetaxel maintenance intravesical chemotherapy Indication for procedure: The patient is a 88-year-old gentleman who was diagnosed with high-grade lamina propria invasive bladder cancer and following TURBT plus intravesical gemcitabine 2 g on 11/16/2023. He underwent restaging TURBT 12/21/2023 without residual disease noted. Unfortunately, because of shortage of availability of BCG, we were unable to offer a complete induction course. As a result, he was instead given the alternative sequential chemotherapy intravesically with gemcitabine docetaxel. He has responded nicely with no evidence of disease on follow-up cystoscopy, 04/12/2024. Procedure note: He was consented before being placed supine on the procedure table. He had previously left a urine which was sent for analysis and unremarkable. He was given a dose of oxybutynin 10 mg prior to the urine result returning, and once deemed appropriate to proceed with the chemotherapy, he was given a dose of Valium 5 mg to encourage improved ability to maintain storage of the chemotherapeutic agents. A 16 [place] urethral Roe catheter was then placed into his bladder and her bladder was decompressed of clear yellow urine. I then applied towels around his genitalia and around the catheter to provide absorbency in the event of any spillage, and the catheter was brought through a hiatus in a fluid impermeable drape which was used to cover the patient's face along with the face shield as I retrograde instilled 1 g of gemcitabine and 27.5 cc normal saline into her bladder. The gemcitabine was allowed to remain intravesical for 90 minutes before it was then evacuated into an associated leg bag. I then returned and instilled 37.5 mg of docetaxel intravesically via the catheter before clamping the catheter and allowing that to remain intravesical for 2 hours / 120 minutes. He tolerated it for the entire installation timeframe desired. The chemotherapy was evacuated into the attached leg bag, and the catheter removed. He was then discharged from the day surgery area in good condition. Complications: None noted Discharge disposition: Follow-up for cystoscopy in 3 months, around 07/13/2024. Repeat upper tract imaging/CTU 6 months from his last. Continue monthly maintenance [place]-Doce intravesical chemotherapy as tolerated, with next dose around 05/26/24.
== END 2024-04-25 15:00 | disposition home or self-care (01) ==
LOC: DS 07:38
PROVIDERS: ATTEND Urology
PROC: 3E0K705 Introduction of Other Antineoplastic into Genitourinary Tract, Via Natural or Artificial Opening (ICD-10-PCS; principal; 2024-04-25)
DX: C67.9 Malignant neoplasm of bladder, unspecified (principal)
CPT/HCPCS: 81003; 51720 ×2; J9171; J9201

== ENCOUNTER 2024-05-23 07:50 | Day surgery (SDC) | payer OTHER ==
[2024-05-23] MEDS ORDERED: DOCEtaxeL 37.5 MG in NA CHLORIDE 0.9% 48.125 ML IS ONE (08:00)
[2024-05-23] MEDS ORDERED: Gemcitabine 26.3 ML IS ONE (08:00)
[2024-05-23] MEDS ORDERED: LIDOCAINE JELLY 2% 5 ML SYRINGE TOP ONE (08:43)
[2024-05-23 08:48] LABS: Specific Gravity 1.021 (1.005-1.030); Sqamous Epithelial <5 /HPF (None Seen); Urine Bacteria None Seen /HPF (<20); Urine Bilirubin NEGATIVE (Negative); Urine Blood Negative (Negative); Urine Clarity Clear (Clear); Urine Color Yellow (Yellow); Urine Culture Reflex Order NOT NEEDED; Urine Glucose NEGATIVE (Negative); Urine Ketones NEGATIVE (Negative); Urine Microscopic Reflex YN ORDER UMIC; Urine Mucus Slight /HPF (None Seen); Urine Nitrite NEGATIVE (Negative); Urine Protein TRACE (Negative); Urine RBC <5 /HPF (None Seen); Urine Urobilinogen Normal (Normal); Urine WBC <5 /HPF (<5)
[2024-05-23] MEDS: OXYBUTYNIN ER 5 MG TAB PO ONE (08:48)
[2024-05-23] MEDS: DIAZEPAM 5 MG TABLET ONE (08:57)
[2024-05-23 09:09] VITALS: BP 109/53; TEMP 98.4; O2SAT 98; BMI 18.1
--- NOTE | 2024-05-23 11:39 | P.PN ---
Date of Service: 05/23/24 Preprocedure diagnosis: pT1a HG urothelial carcinoma of the bladder p negative cystoscopy 04/12/24 Postprocedure diagnoses: Same Principal procedures: Insertion of urethral Roe catheter Sequential gemcitabine-docetaxel maintenance intravesical chemotherapy Indication for procedure: The patient is a 89-year-old gentleman who was diagnosed with high-grade lamina propria invasive bladder cancer and following TURBT plus intravesical gemcitabine 2 g on 11/16/2023. He underwent restaging TURBT 12/21/2023 without residual disease noted. Unfortunately, because of shortage of availability of BCG, we were unable to offer a complete induction course. As a result, he was instead given the alternative sequential chemotherapy intravesically with gemcitabine docetaxel. He has responded nicely with no evidence of disease on follow-up cystoscopy, 04/12/2024. Procedure note: He was consented before being placed supine on the procedure table. He had previously left a urine which was sent for analysis and unremarkable. He was given a dose of oxybutynin 10 mg prior to the urine result returning, and once deemed appropriate to proceed with the chemotherapy, he was given a dose of Valium 5 mg to encourage improved ability to maintain storage of the chemotherapeutic agents. A 16 [place]i urethral Roe catheter was then placed into his bladder and her bladder was decompressed of clear yellow urine. I then applied towels around his genitalia and around the catheter to provide absorbency in the event of any spillage, and the catheter was brought through a hiatus in a fluid impermeable drape which was used to cover the patient's face along with the face shield as I retrograde instilled 1 g of gemcitabine and 27.5 cc normal saline into her bladder. The gemcitabine was allowed to remain intravesical for 90 minutes before it was then evacuated into an associated leg bag. I then returned and instilled 37.5 mg of docetaxel intravesically via the catheter before clamping the catheter and allowing that to remain intravesical for 2 hours / 120 minutes. He tolerated it for the entire installation timeframe desired. The chemotherapy was evacuated into the attached leg bag, and the catheter removed. He was then discharged from the day surgery area in good condition. Complications: None noted Discharge disposition: Follow-up for cystoscopy around 07/13/2024. Repeat upper tract imaging/CTU now - will order to complete as an outpatient prior to next treatment. Continue monthly maintenance [place]-Doce intravesical chemotherapy as tolerated, with next dose around 06/25/24.
== END 2024-05-23 15:12 | disposition home or self-care (01) ==
LOC: DS 07:50
PROVIDERS: ATTEND Urology
PROC: 3E0K705 Introduction of Other Antineoplastic into Genitourinary Tract, Via Natural or Artificial Opening (ICD-10-PCS; principal; 2024-05-23)
DX: C67.9 Malignant neoplasm of bladder, unspecified (principal)
CPT/HCPCS: 81001; 51720 ×2; J9171; J9201

== ENCOUNTER 2024-07-04 08:25 | Day surgery (SDC) | payer OTHER ==
[2024-07-04] MEDS: OXYBUTYNIN ER 5 MG TAB PO ONE (08:34)
[2024-07-04 08:51] LABS: Specific Gravity 1.022 (1.005-1.030); Sqamous Epithelial <5 /HPF (None Seen); Urine Bacteria <20 /HPF (<20); Urine Bilirubin NEGATIVE (Negative); Urine Blood 1+ (Negative); Urine Clarity Clear (Clear); Urine Color Yellow (Yellow); Urine Culture Reflex Order NOT NEEDED; Urine Glucose NEGATIVE (Negative); Urine Ketones NEGATIVE (Negative); Urine Microscopic Reflex YN ORDER UMIC; Urine Mucus Slight /HPF (None Seen); Urine Nitrite NEGATIVE (Negative); Urine Protein TRACE (Negative); Urine Urobilinogen Normal (Normal); Urine pH 5.5 (5.0-7.0)
[2024-07-04] MEDS ORDERED: LIDOCAINE JELLY 2% 5 ML SYRINGE TOP ONE (08:55)
[2024-07-04] MEDS ORDERED: DOCEtaxeL 37.5 MG in NA CHLORIDE 0.9% 48.125 ML IS ONE (09:00)
[2024-07-04] MEDS ORDERED: Gemcitabine 26.3 ML IS ONE (09:00)
[2024-07-04] MEDS: DIAZEPAM 5 MG TABLET ONE (09:00)
[2024-07-04 09:25] VITALS: BP 143/73; TEMP 98.4; O2SAT 99; BMI 18.0
--- NOTE | 2024-07-04 16:19 | P.PN ---
Date of Service: 07/04/24 Preprocedure diagnosis: pT1a HG urothelial carcinoma of the bladder p negative cystoscopy 04/12/24 Postprocedure diagnoses: Same Principal procedures: Insertion of urethral Roe catheter Sequential gemcitabine-docetaxel maintenance intravesical chemotherapy Indication for procedure: The patient is a 89-year-old gentleman who was diagnosed with high-grade lamina propria invasive bladder cancer and following TURBT plus intravesical gemcitabine 2 g on 11/16/2023. He underwent restaging TURBT 12/21/2023 without residual disease noted. Unfortunately, because of shortage of availability of BCG, we were unable to offer a complete induction course. As a result, he was instead given the alternative sequential chemotherapy intravesically with gemcitabine docetaxel. He has responded nicely with no evidence of disease on follow-up cystoscopy, 04/12/2024. Procedure note: He was consented before being placed supine on the procedure table. He had previously left a urine which was sent for analysis and unremarkable. He was given a dose of oxybutynin 10 mg prior to the urine result returning, and once deemed appropriate to proceed with the chemotherapy, he was given a dose of Valium 5 mg to encourage improved ability to maintain storage of the chemotherapeutic agents. A 16 [place]an urethral Roe catheter was then placed into his bladder and her bladder was decompressed of clear yellow urine. I then applied towels around his genitalia and around the catheter to provide absorbency in the event of any spillage, and the catheter was brought through a hiatus in a fluid impermeable drape which was used to cover the patient's face along with the face shield as I retrograde instilled 1 g of gemcitabine and 27.5 cc normal saline into her bladder. The gemcitabine was allowed to remain intravesical for 90 minutes before it was then evacuated into an associated leg bag. I then returned and instilled 37.5 mg of docetaxel intravesically via the catheter before clamping the catheter and allowing that to remain intravesical for 2 hours / 120 minutes. He tolerated it for the entire installation timeframe desired. The chemotherapy was evacuated into the attached leg bag, and the catheter removed. He was then discharged from the day surgery area in good condition. Complications: None noted Discharge disposition: Follow-up for cystoscopy around 07/13/2024, or as soon as possible in early-mid July. Repeat upper tract imaging/CTU now - will order to complete as an outpatient prior to next treatment. Continue monthly maintenance [place]-Doce intravesical chemotherapy as tolerated, or until he is no longer willing to continue with the treatments, for a total of 1 year, until January 2025. Next dose following outpatient cystoscopy in July.
== END 2024-07-04 15:12 | disposition home or self-care (01) ==
LOC: DS 08:25
PROVIDERS: ATTEND Urology
PROC: 3E0K705 Introduction of Other Antineoplastic into Genitourinary Tract, Via Natural or Artificial Opening (ICD-10-PCS; principal; 2024-07-04)
DX: C67.9 Malignant neoplasm of bladder, unspecified (principal)
CPT/HCPCS: 81001; 51720 ×2; J9171; J9201

== ENCOUNTER 2024-08-08 07:24 | Day surgery (SDC) | payer OTHER ==
[2024-08-08] MEDS ORDERED: Gemcitabine 26.3 ML IS ONE (07:30)
[2024-08-08] MEDS: OXYBUTYNIN ER 5 MG TAB PO ONE (07:55)
[2024-08-08 08:10] VITALS: BP 144/73; TEMP 98.4; O2SAT 100; BMI 21.1
[2024-08-08 08:20] LABS: Specific Gravity 1.022 (1.005-1.030); Sqamous Epithelial None Seen /HPF (None Seen); Urine Bacteria None Seen /HPF (<20); Urine Bilirubin NEGATIVE (Negative); Urine Blood Negative (Negative); Urine Clarity Clear (Clear); Urine Color Yellow (Yellow); Urine Culture Reflex Order NOT NEEDED; Urine Glucose NEGATIVE (Negative); Urine Ketones NEGATIVE (Negative); Urine Microscopic Reflex YN ORDER UMIC; Urine Mucus Slight /HPF (None Seen); Urine Nitrite NEGATIVE (Negative); Urine Protein NEGATIVE (Negative); Urine RBC <5 /HPF (None Seen); Urine Sperm Present (None Seen); Urine Urobilinogen Normal (Normal)
[2024-08-08] MEDS: DIAZEPAM 5 MG TABLET ONE (08:29)
[2024-08-08] MEDS: LIDOCAINE JELLY 2% 5 ML SYRINGE TOP ONE (08:48)
[2024-08-08] MEDS ORDERED: DOCEtaxeL 37.5 MG in NA CHLORIDE 0.9% 48.125 ML IS ONE (09:00)
--- NOTE | 2024-08-08 14:51 | P.PN ---
Date of Service: 08/08/24 Preprocedure diagnosis: pT1a HG urothelial carcinoma of the bladder p negative cystoscopy 04/12/24 Postprocedure diagnoses: pT1a HG urothelial carcinoma of the bladder p negative cystoscopy 04/12/24 Principal procedures: Insertion of urethral Roe catheter Sequential gemcitabine-docetaxel maintenance intravesical chemotherapy Indication for procedure: The patient is a 89-year-old gentleman who was diagnosed with high-grade lamina propria invasive bladder cancer and following TURBT plus intravesical gemcitabine 2 g on 11/16/2023. He underwent restaging TURBT 12/21/2023 without residual disease noted. Unfortunately, because of shortage of availability of BCG, we were unable to offer a complete induction course. As a result, he was instead given the alternative sequential chemotherapy intravesically with gemcitabine docetaxel. He has responded nicely with no evidence of disease on follow-up cystoscopy, 04/12/2024. 07/17/24 CTU FINDINGS: LOWER CHEST: The visualized lung bases are clear. LIVER: Normal in size and contour. No focal lesion. BILIARY SYSTEM: No suspicious abnormalities. PANCREAS: No mass, ductal dilation, or eugenio-pancreatic fluid. SPLEEN: Normal size. No focal lesion. ADRENALS: Normal; no mass. KIDNEYS AND URETERS: Normal size and contour. Stable nonobstructing right superior pole 7 mm calculus. No hydronephrosis or hydroureter. No enhancing mass or filling defect within the renal pelvises. Numerous cortical cysts, largest at the left upper to midpole measuring 3 cm, stable. No suspicious filling defects within the ureters. URINARY BLADDER: Normal in appearance. Exophytic lesion seen along the anterior left wall is no longer visualized. No suspicious mass or stone. PROSTATE: Enlarged. Widening at the urinary bladder neck, decreased masslike appearance of the median eminence, may relate to sequelae of interval surgery. GASTROINTESTINAL TRACT: Large hiatal hernia containing the entirety of the stomach again seen No evidence of bowel obstruction, free air, significant free fluid or abscess. APPENDIX: No inflammatory changes in region of appendix. LYMPH NODES: No lymphadenopathy. REPRODUCTIVE ORGANS: No pathologic process. MUSCULOSKELETAL: Progressive superior endplate wedge compression deformity at L5, now with moderate to advanced vertebral body height loss. ADDITIONAL FINDINGS: None. IMPRESSION: Exophytic bladder mass seen on the prior CT is no longer visualized. Possible postoperative changes of partial prostate resection at the bladder outlet. Stable 7 mm nonobstructing right superior renal pole calculus. No acute or other significant abnormalities seen in the abdomen or pelvis. Other stable findings as above. Procedure note: He was consented before being placed supine on the procedure table. He had previously left a urine which was sent for analysis and unremarkable. He was given a dose of oxybutynin 10 mg prior to the urine result returning, and once deemed appropriate to proceed with the chemotherapy, he was given a dose of Valium 5 mg to encourage improved ability to maintain storage of the chemothe rapeutic agents. A 16 Hebrew urethral Roe catheter was then placed into his bladder and her bladder was decompressed of clear yellow urine. I then applied towels around his genitalia and around the catheter to provide absorbency in the event of any spillage, and the catheter was brought through a hiatus in a fluid impermeable drape which was used to cover the patient's face along with the face shield as I retrograde instilled 1 g of gemcitabine and 27.5 cc normal saline into her bladder. The gemcitabine was allowed to remain intravesical for 90 minutes before it was then evacuated into an associated leg bag. I then returned and instilled 37.5 mg of docetaxel intravesically via the catheter before clamping the catheter and allowing that to remain intravesical for 2 hours / 120 minutes. He tolerated it for the entire installation timeframe desired. The chemotherapy was evacuated into the attached leg bag, and the catheter removed. He was then discharged from the day surgery area in good condition. Complications: None noted Discharge disposition: Follow-up for cystoscopy as scheduled. Continue monthly maintenance [place] intravesical chemotherapy as tolerated, or until he is no longer willing to continue with the treatments, for a total of 1 year, until January 2025.
== END 2024-08-08 13:57 | disposition home or self-care (01) ==
LOC: DS 07:24
PROVIDERS: ATTEND Urology
PROC: 3E0K705 Introduction of Other Antineoplastic into Genitourinary Tract, Via Natural or Artificial Opening (ICD-10-PCS; principal; 2024-08-08)
DX: C67.9 Malignant neoplasm of bladder, unspecified (principal)
CPT/HCPCS: 81001; 51720 ×2; J9171; J9201

== ENCOUNTER 2024-09-05 06:41 | Day surgery (SDC) | payer OTHER ==
[2024-09-04 13:35] LABS: Specific Gravity 1.028 (1.005-1.030); Sqamous Epithelial <5 /HPF (None Seen); Transitional Epithelial <5 /HPF (None Seen); Urine Bacteria None Seen /HPF (<20); Urine Bilirubin NEGATIVE (Negative); Urine Blood Negative (Negative); Urine Clarity Clear (Clear); Urine Color Yellow (Yellow); Urine Culture Reflex Order REFLEXED; Urine Glucose NEGATIVE (Negative); Urine Ketones NEGATIVE (Negative); Urine Microscopic Reflex YN ORDER UMIC; Urine Mucus Slight /HPF (None Seen); Urine Nitrite NEGATIVE (Negative); Urine Protein TRACE (Negative); Urine RBC <5 /HPF (None Seen); Urine Urobilinogen 1+ (Normal); Urine pH 6.5 (5.0-7.0)
[2024-09-05] MEDS ORDERED: LIDOCAINE JELLY 2% 5 ML SYRINGE TOP ONE (06:50)
[2024-09-05] MEDS ORDERED: Gemcitabine 26.3 ML IS ONE (08:00)
[2024-09-05] MEDS ORDERED: DOCEtaxeL 37.5 MG in NA CHLORIDE 0.9% 48.125 ML IS ONE (08:00)
[2024-09-05] MEDS: DIAZEPAM 5 MG TABLET ONE (08:19)
[2024-09-05] MEDS: OXYBUTYNIN ER 5 MG TAB PO ONE (08:19)
--- NOTE | 2024-09-05 08:56 | P.PN ---
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 He underwent restaging TURBT 12/21/2023 without residual disease noted. Unfortunately, because of shortage of availability of BCG, we were unable to offer a complete induction course. As a result, he was instead given the alternative sequential chemotherapy intravesically with gemcitabine docetaxel. He has responded nicely with no evidence of disease on follow-up cystoscopy. 07/17/24 CTU IMPRESSION: Exophytic bladder mass seen on the prior CT is no longer visualized. Possible postoperative changes of partial prostate resection at the bladder outlet. Stable 7 mm nonobstructing right superior renal pole calculus. No acute or other significant abnormalities seen in the abdomen or pelvis. Other stable findings as above. Procedure note: He was consented before being placed supine on the procedure table. He had previously left a urine which was sent for analysis and unremarkable. He was given a dose of oxybutynin 10 mg prior to the urine result returning, and once deemed appropriate to proceed with the chemotherapy, he was given a dose of Valium 5 mg to encourage improved ability to maintain storage of the chemotherapeutic agents. A 16 Arabic urethral Roe catheter was then placed into his bladder and her bladder was decompressed of clear yellow urine. I then applied towels around his genitalia and around the catheter to provide absorbency in the event of any spillage, and the catheter was brought through a hiatus in a fluid impermeable drape which was used to cover the patient's face along with the face shield as I retrograde instilled 1 g of gemcitabine and 27.5 cc normal saline into her bladder. The gemcitabine was allowed to remain intravesical for 90 minutes before it was then evacuated into an associated leg bag. I then returned and instilled 37.5 mg of docetaxel intravesically via the catheter before clamping the catheter and allowing that to remain intravesical for 2 hours / 120 minutes. He tolerated it for the entire installation timeframe desired. The chemotherapy was evacuated into the attached leg bag, and the catheter removed. He was then discharged from the day surgery area in good condition. Complications: None noted Discharge disposition: Follow-up for cystoscopy as scheduled. Continue monthly maintenance [place] intravesical chemotherapy as tolerated, or until he is no longer willing to continue with the treatments, for a total of 1 year, until January 2025.
[2024-09-05 13:58] VITALS: BP 116/64; O2SAT 99; BMI 18.4
[2024-09-05 14:24] VITALS: TEMP 98.2
== END 2024-09-05 12:25 | disposition home or self-care (01) ==
LOC: DS 06:41
PROVIDERS: ATTEND Urology
PROC: 3E0K705 Introduction of Other Antineoplastic into Genitourinary Tract, Via Natural or Artificial Opening (ICD-10-PCS; principal; 2024-09-05)
DX: C67.9 Malignant neoplasm of bladder, unspecified (principal)
CPT/HCPCS: 51720; 81001; 87086; 87088

== ENCOUNTER 2024-10-31 07:57 | Day surgery (SDC) | payer OTHER ==
[~2024-10-31 07:57] MED LIST: DOCEtaxeL 37.5 MG in NA CHLORIDE 0.9% 48.125 ML IS ONE; Gemcitabine 26.3 ML IS ONE
[2024-10-31 08:04] LABS: Specific Gravity 1.015 (1.005-1.030); Sqamous Epithelial None Seen /HPF (None Seen); Urine Bacteria None Seen /HPF (<20); Urine Bilirubin NEGATIVE (Negative); Urine Blood Negative (Negative); Urine Clarity Clear (Clear); Urine Color Yellow (Yellow); Urine Culture Reflex Order REFLEXED; Urine Glucose NEGATIVE (Negative); Urine Ketones NEGATIVE (Negative); Urine Microscopic Reflex YN ORDER UMIC; Urine Mucus Slight /HPF (None Seen); Urine Nitrite NEGATIVE (Negative); Urine Protein NEGATIVE (Negative); Urine RBC <5 /HPF (None Seen); Urine Urobilinogen Normal (Normal); Urine WBC <5 /HPF (<5)
[2024-10-31] MEDS: OXYBUTYNIN ER 5 MG TAB PO ONE (08:05)
[2024-10-31] MEDS: DIAZEPAM 5 MG TABLET ONE (08:15)
[2024-10-31] MEDS: LIDOCAINE JELLY 2% 5 ML SYRINGE TOP ONE (08:38)
[2024-10-31 09:42] VITALS: BP 149/76; TEMP 98.7; O2SAT 100; BMI 18.4
--- NOTE | 2024-10-31 18:17 | P.PN ---
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 He underwent restaging TURBT 12/21/2023 without residual disease noted. Unfortunately, because of shortage of availability of BCG, we were unable to offer a complete induction course. As a result, he was instead given the alternative sequential chemotherapy intravesically with gemcitabine docetaxel. He has responded nicely with no evidence of disease on follow-up cystoscopy. 07/17/24 CTU IMPRESSION: Exophytic bladder mass seen on the prior CT is no longer visualized. Possible postoperative changes of partial prostate resection at the bladder outlet. Stable 7 mm nonobstructing right superior renal pole calculus. No acute or other significant abnormalities seen in the abdomen or pelvis. Other stable findings as above. Procedure note: He was consented before being placed supine on the procedure table. He had previously left a urine which was sent for analysis and unremarkable. He was given a dose of oxybutynin 10 mg prior to the urine result returning, and once deemed appropriate to proceed with the chemotherapy, he was given a dose of Valium 5 mg to encourage improved ability to maintain storage of the chemotherapeutic agents. A 16 Moroccan urethral Roe catheter was then placed into his bladder and her bladder was decompressed of clear yellow urine. I then applied towels around his genitalia and around the catheter to provide absorbency in the event of any spillage, and the catheter was brought through a hiatus in a fluid impermeable drape which was used to cover the patient's face along with the face shield as I retrograde instilled 1 g of gemcitabine and 27.5 cc normal saline into her bladder. The gemcitabine was allowed to remain intravesical for 90 minutes before it was then evacuated into an associated leg bag. I then returned and instilled 37.5 mg of docetaxel intravesically via the catheter before clamping the catheter and allowing that to remain intravesical for 2 hours / 120 minutes. He tolerated it for the entire installation timeframe desired. The chemotherapy was evacuated into the attached leg bag, and the catheter removed. He was then discharged from the day surgery area in good condition. Complications: None noted Discharge disposition: Follow-up for cystoscopy as scheduled. Continue monthly maintenance [place] intravesical chemotherapy as tolerated, or until he is no longer willing to continue with the treatments, for a total of 1 year, until January 2025.
== END 2024-10-31 14:42 | disposition home or self-care (01) ==
LOC: DS 07:57
PROVIDERS: ATTEND Urology
DX: C67.9 Malignant neoplasm of bladder, unspecified (principal)
CPT/HCPCS: 87088; 81001; 87086; 51720 ×2; J9171; J9201

== ENCOUNTER 2024-11-25 13:43 | Observation (INO) | payer OTHER ==
--- OUTSIDE RECORDS SUMMARY | 2024-11-25 13:47 | XMS REPORT | Continuity of Care Document ---
Author Name Unknown Address [address] [place] [address] Organization [facility] Address [address] [place] [address] Care Team Providers Care Education Rn Name Role Phone Gilbert Li Primary Care Physician [phone] Ryley Li Attending Clinician Unavailable Bushra Chavez DPM Attending Clinician + [phone] BUSHRA CHAVEZ Attending Clinician Unavail able Nurse, [facility] Fam Attending Clinician Unavailable Laureen Venegas MD Attending Clinician [phone] LAUREEN VENEGAS Attending Clinician Unavailab le Vaccine, [facility] Attending Clinician Unavailable Dillon Pina MD Attending Clinician [phone] DILLON PINA Attending Clinician Unavailable Doctor Unassigned, Natalia Attending Clinician U navailable Payers Payer Name Policy Type Policy Number Effective Date Expirati on Date Source MEDICARE PART A AND B Medicare [id number] 2024 00:00:00 Problems Condition Name Condition Details Condition Category Status Onset Date Resolution Date Last Treatment Date Treating Clinician Comments Source ISCHEMIC CVA ISCHEMIC CVA Active 12/15/2015 [facility] Diagnosis Active 12-14 00:00: 00 2016-01-06 13:48:00 Gerald Palomo [id number] History of bladder cancer Problem [facility] [id number] Right nephrolith iasis Problem [facility] [id number] Bladder tumor Problem [facility] [id number] 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 Problem [facility] [id number] Lower urinary tract symptoms (LUTS) Problem [facility] Bladder cancer Bladder cancer Problem [facility] [id number] Elevated PSA Problem [facility] [id number] Gross hematuria Problem [facility] Carcinoma of bladder Carcinoma of bladder Problem [facility] Hypertensi ve disorder, systemic arterial (disorder) Hypertensi ve disorder, systemic arterial (disorder) Active Problem 12/20/2015 [facility] GUADALUPE Palomo Problem Active 2015-12-20 01:55:04 Gerald Palomo CVA CVA Active [facility] Diagnosis Active 2014-05-28 17:06:00 Gerald Palomo ILLNESS, UNSPECIFIE D ILLNESS, UNSPECIFIE D Active [facility] Diagnosis Active 2016-01-06 13:48:00 Gerald Palomo Hearing aid, device (physical object) Hearing aid, device (physical object) Resolved Problem 12/20/2015 [facility] Problem Resolve d 2015-12-20 01:55:04 Gerald Palomo Hyperlipid emia (disorder) Hyperlipid emia (disorder) Active Problem 12/20/2015 [facility] GUADALUPE Palomo Problem Active 2015-12-20 01:55:04 Gerald Palomo Allergies, Adverse Reactions, Alerts Allergy Name Allergy Type Status Severity Reaction(s) Onset Date Inactive Date Treating Clinician Comments Source NO KNOWN ALLERGIE S Drug Class Active [facility] phenobar bital phenobar bital Active Unknown [facility] PHENobar bital PHENobar bital Active Gerald Palomo Social History Social Habit Start Date Stop Date Quantity Comments Source Gender identity 2023-10-02 23:43:59 Identifies as male gender (finding) [facility] History of Tobacco Use [facility] Sex Assigned At [facility] Sexual orientation M emoridanielle Dewey [facility] Exposure to SARS-CoV-2 (event) 2022-08-01 00:00:00 2022-08-11 12:11:00 Not sure [facility] Social History 2015-12-15 21:40:12 2015-12-15 21:40:12 [facility] Smoking Status Start Date Stop Date Source Tobacco smoking consumption unknown [facility] Former Smoker 2024-08-28 00:00:00 2024-08-28 00:00:00 [facility] Social History [facility] Medications Ordered Medication Name Filled Medication Name Start Date Stop Date Current Medication? Ordering Clinician Indication Dosage Frequency Signature (SIG) Comments Components Source Lisinopril 12-16 14:00: 00 No Notes: (Same as: Prinivil, Zestril) Gerald Palomo Plavix 12-16 14:00: 00 No Notes: (Same As: Plavix) Gerald Palomo clopidogrel 75 mg oral tablet 12-16 11:51: 00 Yes 75 mg = 1 tab, PO, Daily, # 90 tab, 2 Refill(s) Gerald Palomo Lipitor 12-16 02:00: 00 No Notes: (Same As: Lipitor) Gerald Palomo Iohexol 12-15 14:22: 00 No Notes: (Same as:Omnipaq ue 350). WASTE: F/P - Black; E - Municipal Trash [employer] Gerald Palomo heparin sodium, porcine 2500 UNT/ML Injectable Solution 12-15 14:00: 00 No Notes: porcine heparin Gerald Palomo Aspirin 325 MG Enteric Coated Tablet 12-15 14:00: 00 No Notes: (Do Not Crush) Do not crush or chew. Gerald Palomo Saline Flush 0.9% 12-15 02:00: 00 No Notes: (Same as: BD Posiflush) Gerald Palomo atorvastati n 12-15 02:00: 00 No Notes: Same as Lipitor Gerald Palomo saw palmetto 450 mg oral capsule 12-14 22:45: 00 Yes 0 Refill(s) Gerald Palomo Fish Oil 1200 mg oral capsule 12-14 22:43: 00 Yes 1,200 mg = 1 cap, PO, BID, 0 Refill(s) Gerald timothy Dewey Centrum Silver Men's 12-14 22:43: 00 Yes 1 tab, PO, Daily, 0 Refill(s) Gerald Palomo Saline Flush 0.9% 12-14 20:25: 00 No Notes: (Same as: BD Posiflush) Gerald Palomo Acetaminoph en 12-14 20:25: 00 No Notes: Do not exceed 4 gm/day. (Same as: Tylenol) Gerald Palomo Sodium Chloride 0.154 MEQ/ML Injectable Solution 12-14 20:25: 00 No 1,000 mL, Rate: 75 ml/hr, Infuse over: 13.3 hr, Route: IV, Dosing Weight 65.455 kg, Total Volume: 1,000, Start date: 12/15/15 15:25:00 CDT, Duration: 30 day, Stop date: 01/14/16 15:24:00 CDT Gerald Palomo Lipitor 2013-07 03:00: 00 No Notes: (Same As: Lipitor) Gerald Friedmanann heparin sodium, porcine 2500 UNT/ML Injectable Solution 2013-07 22:00: 00 No Notes: porcine heparin Virigonzalo timothy Palomo Ibuprofen 400 MG Oral Tablet 2013-07 15:16: 00 No Notes: (Same as: Motrin) "Do Not Crush" Give with food. Virigonzalo timothy Palomo Aspirin 81 MG Enteric Coated Tablet 2013-07 15:00: 00 No Notes: Do not crush or chew. (Same As: Ecotrin) Gerald Palomo Saline Flush 0.9% 2013-07 03:00: 00 No Notes: (Same as: BD Posiflush) Gerald Palomo Lipitor 2013-07 03:00: 00 No Notes: (Same As: Lipitor) Gerald Palomo Tylenol 2013-07 00:46: 00 No Notes: Do not exceed 4 gm/day. (Same as: Tylenol) Gerald Palomo Saline Flush 0.9% 2013-07 00:39: 00 No Notes: (Same as: BD Posiflush) Gerald Palomo atorvastati n 2013-07 00:07: 00 No Notes: (Same as: Lipitor) Gerald Palomo Aspirin 81 MG Chewable Tablet 2013-07 00:06: 00 No Notes: Take with food. Gerald Palomo aspirin 2013-07 23:43: 00 Yes 81 mg, PO, Daily, 0 Refill(s) Gerald Palomo Vitamin D3 1000 intl units oral tablet 2013-07 23:42: 00 Yes 1,000 IntlUnit = 1 tab, PO, Daily, # 30 tab, 0 Refill(s) Gerald Palomo Garlic preparation 2013-07 23:42: 00 Yes 1 tab, PO, QAM, 0 Refill(s) Gerald Palomo Flax Seed Oil oral capsule 2013-07 23:38: 00 Yes 1 tab, PO, BID, 0 Refill(s) Gerald Palomo Centrum Silver oral tablet 2013-07 23:37: 00 Yes 1 tab, PO, Daily, # 30 tab, 0 Refill(s) Gerald Palomo Prilosec 2013-07 23:37: 00 Yes 40 mg, PO, Every Other Day, 0 Refill(s) Gerald Palomo lisinopril 10 mg oral tablet 2013-07 23:37: 00 Yes 10 mg = 1 tab, PO, Daily, # 30 tab, 0 Refill(s) Gerald Palomo atorvastati n 10 MG Oral Tablet [Lipitor] 2013-07 23:36: 00 Yes 10 mg = 1 tab, PO, Bedtime, # 30 tab, 0 Refill(s) Gerald Palomo iodixanol 2013-07 21:23: 00 No Special Instructio ns: Dose = 2.2ml/kg, Max dose = 150ml -- "To be infused by Radiology Staff ONLY" Gerald Friedmanann atorvastati n (Lipitor) 10 MG tablet atorvastati n (Lipitor) 10 MG tablet 2013-07 00:00: 00 Yes 10mg 10 mg = 1 tab, PO, Bedtime, # 30 tab, 0 Refill(s) Gerald Tran lisinopril 10 MG tablet lisinopril 10 MG tablet 2013-07 00:00: 00 Yes 10mg 10 mg = 1 tab, PO, Daily, # 30 tab, 0 Refill(s) Gerald Tran GARLIC PO GARLIC PO 2013-07 00:00: 00 Yes 1 tab, PO, QAM, 0 Refill(s) Gerald Palomo Epic Lisinopril 5 MG Lisinopril 5 MG No Lisinopril 5 MG Levothyroxi ne Sodium 25 MCG Levothyroxi ne Sodium 25 MCG No Levothyrox ine Sodium 25 MCG Atorvastati n Calcium 20 MG Atorvastati n Calcium 20 MG No Atorvastat in Calcium 20 MG Immunizations Ordered Immunization Name Filled Immunization Name Date Status Comments Source SARS-COV-2 COVID-19 VACCINE 12 YRS+, BIVALENT 0.5ML, IM, (MODERNA BOOSTER) 2022-08-11 00:00:00 Completed [facility] SARS-COV-2 COVID-19 MODERNA 0.25ML BOOSTER VACCINE 2022-01-27 00:00:00 Completed [facility] SARS-COV-2 COVID-19 MODERNA 0.25ML BOOSTER VACCINE 2022-01-27 00:00:00 Completed [facility] SARS-COV-2 COVID-19 MODERNA 0.25ML BOOSTER VACCINE 2021-05-28 00:00:00 Completed [facility] SARS-COV-2 COVID-19 MODERNA 0.25ML BOOSTER VACCINE 2021-05-28 00:00:00 Completed [facility] SARS-COV-2 COVID-19 MODERNA 12+ YRS VACCINE 2020-09-04 00:00:00 Completed [facility] SARS-COV-2 COVID-19 MODERNA 12+ YRS VACCINE 2020-09-04 00:00:00 Completed [facility] SARS-COV-2 COVID-19 MODERNA 12+ YRS VACCINE 2020-08-07 00:00:00 Completed [facility] SARS-COV-2 COVID-19 MODERNA 12+ YRS VACCINE 2020-08-07 00:00:00 Completed [facility] SARS-COV-2 COVID-19 MODERNA 12+ YRS VACCINE Unknown Completed [facility] SARS-COV-2 COVID-19 MODERNA 0.25ML BOOSTER VACCINE Unknown Completed [facility] SARS-COV-2 COVID-19 VACCINE 12 YRS+, BIVALENT 0.5ML, IM, (MODERNA-BLUE TOP) Unknown Completed [facility] SARS-COV-2 COVID 19 GOLDIE SUCROSE VACCINE 12+, , 0.3 ML (30 MCG), IM PFIZER (SANCHEZ TOP) Unknown Completed [facility] Vital Signs Vital Name Observation Time Observation Value Comments S ource height 2024-08-28 14:15:00 70 [in_i] Commo n [facility] weight 2024-08-28 14:15:00 130 [lb_av] Comm on [facility] temperature 2024-08-28 14:15:00 97.9 [degF] Com mon [facility] bmi 2024-08-28 14:15:00 18.65 kg/m2 Comm on [facility] oximetry 2024-08-28 14:15:00 96 % Commo n [facility] respiratory rate 2024-08-28 14:15:00 18 /min [facility] blood pressure systolic 2024-08-28 14:15:00 132 mm[Hg] [facility] blood pressure diastolic 2024-08-28 14:15:00 68 mm[Hg] [facility] respiratory rate 2024-04-12 09:45:00 18 /min [facility] blood pressure systolic 2024-04-12 09:45:00 126 mm[Hg] [facility] blood pressure diastolic 2024-04-12 09:45:00 62 mm[Hg] [facility] height 2024-04-12 09:45:00 70 [in_i] Commo n [facility] weight 2024-04-12 09:45:00 125 [lb_av] Comm on [facility] temperature 2024-04-12 09:45:00 97.6 [degF] Com mon [facility] bmi 2024-04-12 09:45:00 17.93 kg/m2 Comm on [facility] oximetry 2024-04-12 09:45:00 96 % Commo n [facility] height 2024-01-05 13:30:00 70 [in_i] Commo n [facility] weight 2024-01-05 13:30:00 127 [lb_av] Comm on [facility] temperature 2024-01-05 13:30:00 97.7 [degF] Com mon [facility] bmi 2024-01-05 13:30:00 18.22 kg/m2 Comm on [facility] oximetry 2024-01-05 13:30:00 96 % Commo n [facility] respiratory rate 2024-01-05 13:30:00 18 /min Common [facility] blood pressure systolic 2024-01-05 13:30:00 126 mm[Hg] [facility] blood pressure diastolic 2024-01-05 13:30:00 68 mm[Hg] Common [facility] height 2023-12-02 11:15:00 70 [in_i] Commo n [facility] weight 2023-12-02 11:15:00 127.4 [lb_av] Co mmon [facility] temperature 2023-12-02 11:15:00 99.1 [degF] Com mon [facility] bmi 2023-12-02 11:15:00 18.28 kg/m2 Comm on [facility] oximetry 2023-12-02 11:15:00 98 % Commo n [facility] respiratory rate 2023-12-02 11:15:00 18 /min Common [facility] blood pressure systolic 2023-12-02 11:15:00 124 mm[Hg] [facility] blood pressure diastolic 2023-12-02 11:15:00 64 mm[Hg] [facility] height 2023-11-22 09:15:00 70 [in_i] Commo n [facility] weight 2023-11-22 09:15:00 131 [lb_av] Comm on [facility] temperature 2023-11-22 09:15:00 98.6 [degF] Com mon [facility] bmi 2023-11-22 09:15:00 18.79 kg/m2 Comm on [facility] oximetry 2023-11-22 09:15:00 99 % Commo n [facility] respiratory rate 2023-11-22 09:15:00 18 /min [facility] blood pressure systolic 2023-11-22 09:15:00 140 mm[Hg] [facility] blood pressure diastolic 2023-11-22 09:15:00 68 mm[Hg] [facility] height 2023-10-29 11:00:00 70 [in_i] Commo n [facility] weight 2023-10-29 11:00:00 131 [lb_av] Comm on [facility] temperature 2023-10-29 11:00:00 98 [degF] Comm on [facility] bmi 2023-10-29 11:00:00 18.79 kg/m2 Comm on [facility] oximetry 2023-10-29 11:00:00 96 % Commo n [facility] respiratory rate 2023-10-29 11:00:00 18 /min [facility] blood pressure systolic 2023-10-29 11:00:00 146 mm[Hg] [facility] blood pressure diastolic 2023-10-29 11:00:00 88 mm[Hg] Common [facility] height 2023-10-07 10:15:00 70 [in_i] Commo n [facility] weight 2023-10-07 10:15:00 129.8 [lb_av] Co mmon [facility] bmi 2023-10-07 10:15:00 18.62 kg/m2 Comm on [facility] oximetry 2023-10-07 10:15:00 99 % Commo n [facility] respiratory rate 2023-10-07 10:15:00 18 /min Common [facility] blood pressure systolic 2023-10-07 10:15:00 140 mm[Hg] [facility] blood pressure diastolic 2023-10-07 10:15:00 67 mm[Hg] [facility] Body temperature 2023-05-31 16:48:00 36.5 Sandra [facility] Systolic (mm Hg) 2015-12-17 16:25:00 [facility] Diastolic (mm Hg) 2015-12-17 16:25:00 [facility] Respitory Rate 2015-12-17 16:25:00 [facility] Heart Rate 2015-12-17 16:25:00 [facility] Temperature Oral (F) 2015-12-17 16:25:00 97.3 F [facility] Systolic (mm Hg) 2015-12-17 12:45:00 [facility] Diastolic (mm Hg) 2015-12-17 12:45:00 [facility] Respitory Rate 2015-12-17 12:45:00 [facility] Temperature Oral (F) 2015-12-17 12:45:00 97.0 F [facility] Heart Rate 2015-12-17 12:45:00 [facility] Systolic (mm Hg) 2015-12-17 09:10:00 [facility] Diastolic (mm Hg) 2015-12-17 09:10:00 [facility] Heart Rate 2015-12-17 09:10:00 [facility] Respitory Rate 2015-12-17 09:10:00 [facility] Temperature Oral (F) 2015-12-17 09:10:00 97.7 F [facility] Height 2015-12-15 21:36:00 177.8 cm [facility] Weight 2015-12-15 21:36:00 [facility] BMI Calculated 2015-12-15 21:36:00 [facility] Respitory Rate 2014-05-28 18:00:00 [facility] Systolic (mm Hg) 2014-05-28 18:00:00 [facility] Heart Rate 2014-05-28 18:00:00 [facility] Diastolic (mm Hg) 2014-05-28 18:00:00 [facility] Temperature Oral (F) 2014-05-28 18:00:00 98.7 F [facility] Systolic (mm Hg) 2014-05-28 14:00:00 [facility] Diastolic (mm Hg) 2014-05-28 14:00:00 [facility] Temperature Oral (F) 2014-05-28 14:00:00 98.1 F [facility] Heart Rate 2014-05-28 14:00:00 [facility] Respitory Rate 2014-05-28 14:00:00 [facility] Systolic (mm Hg) 2014-05-28 10:33:00 [facility] Heart Rate 2014-05-28 10:33:00 [facility] Diastolic (mm Hg) 2014-05-28 10:33:00 [facility] Temperature Oral (F) 2014-05-28 10:33:00 97.5 F [facility] Respitory Rate 2014-05-28 10:33:00 [facility] Weight 2014-05-26 19:56:00 [facility] BMI Calculated 2014-05-26 19:56:00 [facility] Height 2014-05-26 19:56:00 177.8 cm [facility] Procedures Procedure Date / Time Performed Performing Clinician Source PVR 2024-08-28 00:00:00 Common [facility]irit - [facility] PVR 2023-12-02 00:00:00 Common S pirit - [facility] PVR 2023-10-07 00:00:00 Common S pirit [facility] SARS-COV-2 COVID 19 GOLDIE SUCROSE VACCINE 12+, , 0.3 ML (30 MCG), IM PFIZER (SANCHEZ TOP) 2023-05-31 16:40:57 Dillon Pina [facility] SARS-COV-2 COVID-19 VACCINE 12 YRS+, BIVALENT 0.5ML, IM (MODERNA BOOSTER) 2022-08-11 18:40:12 Doctor Unassigned, Natalia [facility] ASSIGNMENT OF BENEFITS 2022-08-11 18:13:29 Docto r Unassigned, Natalia [facility] Cataract surgery [facility] Procedure<sup>1</sup> Dru Wells Prostate manipulation Dru Wells Small bowel resection Dru Wells Encounters Start Date/Time End Date/Time Encounter Type Admission Type Attending [facility] Facility Care Department Encounter ID Source 2024-03-16 10:37:00 Outpatient Guillermo Ryley [facility] [id number] [facility] 2023-10-07 09:27:00 Outpatient Guillermo Ryley [facility] [id number] [facility] 2024-11-08 13:30:00 2024-11-08 14:12:31 Office Visit SelBushra [facility] 1..840.114 [id number] Gerald Palomo [facility] 2024-11-08 13:25:42 2024-11-08 14:12:31 Outpatient Elective SELBUSHRA ZAVALAOUT MHEOUT [id number] EOUT 2024-10-16 11:33:37 2024-10-16 12:33:25 Outpatient Elective SELBUSHRA ZAVALA MHEOUT [id number] EOUT 2024-10-16 11:30:00 2024-10-16 12:33:25 Office Visit SelBushra zavala [facility] 1..[id number] Gerald Palomo [facility] 2024-10-09 10:50:00 2024-10-09 11:09:24 Office Visit Scott Bushra Pimentel Tanmay [facility] [id number] Gerald Palomo [facility] 2024-10-09 10:46:38 2024-10-09 11:09:24 Outpatient Elective SELBSTERONBUSHRA MHEOUT MHEOUT [id number] [facility] 2024-09-25 12:50:07 2024-09-25 13:33:30 Outpatient Elective SELBST, BUSHRA MHEOUT MHEOUT [id number] [facility] 2024-09-25 12:50:00 2024-09-25 13:00:00 Consult Bushra Chavez Margarito Donato [facility] [id number] Gerald aguirre [facility] 2024-08-28 00:00:00 2024-08-28 00:00:00 OFFICE VISIT ESTAB PT LEVEL 3 STLMLC STLMLC [id number] [facility] 2024-04-12 00:00:00 2024-04-12 00:00:00 OFFICE VISIT ESTAB PT LEVEL 3 STLMLC STLMLC [id number] [facility] 2024-02-25 00:00:00 2024-02-25 00:00:00 (TEL) STLMLC STLMLC [id number] [facility] 2024-01-05 00:00:00 2024-01-05 00:00:00 OFFICE VISIT ESTAB PT LEVEL 4 STLMLC STLMLC [id number] [facility] 2023-12-02 00:00:00 2023-12-02 00:00:00 OFFICE VISIT ESTAB PT LEVEL 4 STLMLC STLMLC [id number] [facility] 2023-11-22 00:00:00 2023-11-22 00:00:00 ([place]) Nurse Visit STLMLC STLMLC [id number] [facility] 2023-11-14 00:00:00 2023-11-14 00:00:00 (TEL) STLMLC STLMLC [id number] [facility] 2023-10-29 00:00:00 2023-10-29 00:00:00 OFFICE VISIT ESTAB PT LEVEL 4 STLMLC STLMLC [id number] [facility] 2023-10-07 00:00:00 2023-10-07 00:00:00 OFFICE VISIT NEW PT LEVEL 3 STLMLC STLMLC [id number] [facility] 2023-05-31 10:00:00 2023-05-31 10:20:00 Nurse Visit Nurse, [facility] Seng Obi-Xander [facility] [id number] [facility] 2023-05-31 10:00:00 2023-05-31 10:00:00 Outpatient R OBI-LAUREEN TERRELL OBI-XANDER [facility] [id number] [facility] 2022-08-11 13:00:00 2022-08-11 13:10:00 Imm/Inj Visit Vaccine, [facility] Dillon Pina [facility] [id number] [id number] [id number] [facility] 2022-08-11 13:00:00 2022-08-11 13:00:00 Outpatient R DILLON PINA [facility] [id number] [facility] 2022-08-11 00:00:2022-08-11 00:00:00 Orders Only Doctor Unassigned, Natalia [facility] [id number] [id number] [id number] [facility] 2015-12-16 21:06:00 2015-12-17 16:59:00 OBS Observatio n Patient nullFlavo r [facility] [id number] Gerald Palomo 2014-06-29 19:15:00 2014-06-30 05:59:00 Outpt Diag Services nullFlavo r [facility] [id number] Gerald Palomo 2014-05-26 20:13:00 2014-05-28 23:00:00 Inpatient nullFlavo r [facility] [id number] Gerald Palomo Results Test Description Test Time Test Comments Results Result Co mments Source [id number] 08:23:00* Test Item Value Reference Range Interpretation Comme nts AGAP (test code = AGAP) 15.9 10.0-20.0 [id number] 08:23:00* Test Item Value Reference Range Interpretation Comme nts MCV (test code = MCV) 91.3 80.0-94.0 [facility] [id number] 07:35:00* Test Item Value Reference Range Interpretation Comme nts eGFR (test code = eGFR) 77 [facility] [id number] 07:35:00* Test Item Value Reference Range Interpretation Comme nts WBC (test code = WBC) 5.3 3.7-10.4 [facility] [id number] 05:39:00* Test Item Value Reference Range Interpretation Comme nts UA Urobilinogen (test code = UA Urobilinogen) <=1.0 mg/dL 0.1-1.0 [facility] [id number] 21:58:00* Test Item Value Reference Range Interpretation Comme nts Hgb A1C (test code = Hgb A1C) 5.8 [facility] [id number] 21:58:00* Test Item Value Reference Range Interpretation Comme nts Bili Total (test code = Bili Total) 0.9 0.2-1.3 [facility] [id number] 21:58:00* Test Item Value Reference Range Interpretation Comme nts RBC (test code = RBC) 5.22 4.70-6.10 [facility] [id number] 21:58:00* Test Item Value Reference Range Interpretation Comme nts CHD Risk (test code = CHD Risk) 2.39 4.00-7.30 [facility] [id number] 14:16:17* Test Item Value Reference Range Interpretation Comme nts UA Sq Epi (test code = UA Sq Epi) None [facility]en [facility] [id number] 21:16:00* Test Item Value Reference Range Interpretation Comme nts POC Creatinine (test code = POC Creatinine) 1.0 0.5-1.4 [facility] [id number] 20:19:00* Test Item Value Reference Range Interpretation Comme nts Troponin-I (test code = Troponin-I) no gt <=0.40 [facility] [id number] 20:19:00* Test Item Value Reference Range Interpretation Comme nts eGFR (test code = eGFR) 82 [facility] [id number] 20:19:00* Test Item Value Reference Range Interpretation Comme nts Basophils # (test code = Basophils #) 0.0 <=0.2 [facility] Notes Upcoming Encounters Date/Time Note Provider Source 2024-11-08 14:14:00 Bushra Chavez, [facility] - 11/08/2024 1:30 PM CDT CHIEF COMPLAINT: RADICULOPATHY, LEFT LOWER EXTREMITY Ankle sprain, LEFT - resolved 10/09/2024 HISTORY OF PRESENT ILLNESS: Patient states ankle and calf pain have fully resolved Patient states periodic shooting/electricity sensation from the LEFT hip to the calf Patient currently denies pain, infection, injury, wounds in the bilateral lower extremity --- Patient states LEFT ankle pain has resolved Patient states LEFT calf pain is significantly improved, starting approximately October 04, 2023 Patient denies infection, injury, wounds in the bilateral lower extremity Patient states pain currently rated 2/10 on palpation, left calf --- Patient states painful lateral ankle, after exiting his vehicle, approximately September 03, 2024 Patient states that he may have slightly rolled his ankle causing LEFT lateral ankle pain Patient denies hearing a pop, however gradually felt more pain throughout the day Patient states pain is currently rated 4/10 on palpation, LEFT lateral ankle OBJECTIVE: PHYSICAL EXAM OF THE LOWER EXTREMITY VASCULAR: (-) edema, lateral ankle (-) ecchymosis, lateral ankle (-) erythema Dorsal pedis pulse, graded 2/4; bilateral Posterior tibial pulse, graded 2/4; bilateral Capillary Refill time: within normal limits; bilateral (-) varicosities (+) pedal hair growth NEUROLOGICAL: (+) sensation with 5.07 [place] monofilament examination to the most distal lower extremity (-) pain with single leg raise, bilateral (-) tinel's sign (-) clonus present DERMATOLOGICAL: (-) open wounds (-) signs of soft tissue infection (-) ischemic tissue (-) abscess (-) other primary or secondary lesions (+) normal temperature when compared to contralateral limb (+) normal color, tugor, and elasticity MUSCULOSKELETAL: (-) mild pain on palpation, left calf (-) deep vein thrombosis, left calf (-) anterior draw sign with dimpling (-) noted when compared to the contralateral limb (-) pain on palpation to the anterior talo-fibular ligament, during stress by plantar flexion and inversion of the foot (-) pain on palpation to the the calcaneal fibular ligament, during stress by inversion of the rearfoot (-) pain on palpation to the posterior talo-fibular ligament, with and without stress (-) pain on palpation to the proximal or distal fibula (-) pain on palpation along the peroneal tendons, with and without resistance (-) pain on palpation to the 5th metatarsal base, anterior calcaneal tuberosity 5/5 muscle strength to extrinsic pedal muscle groups (-) evidence of compartment syndrome X-rays left foot /ankle 09/13/2024: (-) Fracture, (-) dislocation, (-) arthritis, (-) osteochondral defect MRI left ankle 10/03/2024: (-) osseous or ligamentous abnormalities Venous studies left lower extremity 10/14/2024: (-) Thrombosis ASSESSMENT: RADICULOPATHY, LEFT LOWER EXTREMITY --- Ankle sprain, LEFT - resolved 10/09/2024 History of cancer ( on monthly chemotherapy) PLAN: - Extensive visit discussing possible pedal complications including (but not limited to) arthritis - Pain - well controlled with [id number] NSAIDs - Cast - patient defers, understands risk, patient requesting to complete further imaging studies before considering casting - X-rays - Reviewed - MRI - reviewed - VASCULAR- reviewed - Weight bearing - as tolerated in well supportive shoes, use immobilization CAM boot as needed, DISPENSED 09/25/2024 - physical therapy -patient defers, states very active with no decrease in function or strength - Return 4 weeks for neuropathy eval, consider physical therapy Patient advised to report to my clinic or the emergency room immediately with any questions or concerns.Patient Instructions:Discussion: A detailed discussion was provided to the patient with specific reference to etiology, pathology, alternate treatment options, and prognosis. All risks and complications (including side effects) with each treatment/medication alternative were outlined in detail including but not limited to: Pain, swelling, numbness,loss of function, loss of limb, bleeding, hematoma, scarring, failure to relieve condition, surgery, additional/revisional surgery, reflex sympathetic dystrophy, complex regional pain syndrome, reoccurrence of deformity, joint stiffness, flail toe, bone and/or soft tissue infection, blood clots, pulmonary embolism, possible ,delayed or non-healing. X-rays, graphs and drawings were all used to assist with patient comprehension when appropriate. All patients questions were answered and stated they fully understood. No guarantee as to results or outcome of treatment was made. I have discussed with the patient or legally responsible person prior to obtaining consent: the risks, potential benefits and drawbacks, significant alternatives, potential for problems related to recuperation, likelihood of success, and possible results of non-treatment, and the patient or the legally responsible person has agreed to proceed. [facility] Due Date Last Done Comments Medicare Annual Wellness (AWV) 1935 DTaP/Tdap/Td Vaccines (1 - Tdap) 02/19/1955 Pneumococcal Vaccine: 50+ Ye ars (1 of 1 - PCV) 02/19/1986 Zoster Vaccines (1 of 2) 02/19/1986 Respiratory Syncytial Virus (RSV) Adult Series (1 - 1-dose 75+ series) 02/19/2011 Lipid Panel 07/01/2021 07/01/2016 Influenza Vaccine (Season Ended) 2025 HIB Vaccines Aged Out No longer eligi ble based on patient's age to complete this topic HPV Vaccines Aged Out No longer eligi ble based on patient's age to complete this topic Hepatitis A Vaccines Aged Out No long er eligible based on patient's age to complete this topic Hepatitis B Vaccines Aged Out No long er eligible based on patient's age to complete this topic IPV Vaccines Aged Out No longer eligi ble based on patient's age to complete this topic Meningococcal Vaccine Aged Out No flavia reji eligible based on patient's age to complete this topic Rotavirus Vaccines Aged Out No longer eligible based on patient's age to complete this topic [facility] [id number] 14:14:00 Diagnosis Abnormal foot finding - Prim marii [facility] [id number] 14:14:00 [place] [id number] 14:13:59* Bushra Chavez, ANUJ - 11/08/2024 1:30 PM CDT CHIEF COMPLAINT: RADICULOPATHY, LEFT LOWER EXTREMITY Ankle sprain, LEFT - resolved 10/09/2024 HISTORY OF PRESENT ILLNESS: Patient states ankle and calf pain have fully resolved Patient states periodic shooting/electricity sensation from the LEFT hip to the calf Patient currently denies pain, infection, injury, wounds in the bilateral lower extremity --- Patient states LEFT ankle pain has resolved Patient states LEFT calf pain is significantly improved, starting approximately October 04, 2023 Patient denies infection, injury, wounds in the bilateral lower extremity Patient states pain currently rated 2/10 on palpation, left calf --- Patient states painful lateral ankle, after exiting his vehicle, approximately September 03, 2024 Patient states that he may have slightly rolled his ankle causing LEFT lateral ankle pain Patient denies hearing a pop, however gradually felt more pain throughout the day Patient states pain is currently rated 4/10 on palpation, LEFT lateral ankle OBJECTIVE: PHYSICAL EXAM OF THE LOWER EXTREMITY VASCULAR: (-) edema, lateral ankle (-) ecchymosis, lateral ankle (-) erythema Dorsal pedis pulse, graded 2/4; bilateral Posterior tibial pulse, graded 2/4; bilateral Capillary Refill time: within normal limits; bilateral (-) varicosities (+) pedal hair growth NEUROLOGICAL: (+) sensation with 5.07 [place] monofilament examination to the most distal lower extremity (-) pain with single leg raise, bilateral (-) tinel's sign (-) clonus present DERMATOLOGICAL: (-) open wounds (-) signs of soft tissue infection (-) ischemic tissue (-) abscess (-) other primary or secondary lesions (+) normal temperature when compared to contralateral limb (+) normal color, tugor, and elasticity MUSCULOSKELETAL: (-) mild pain on palpation, left calf (-) deep vein thrombosis, left calf (-) anterior draw sign with dimpling (-) noted when compared to the contralateral limb (-) pain on palpation to the anterior talo-fibular ligament, during stress by plantar flexion and inversion of the foot (-) pain on palpation to the the calcaneal fibular ligament, during stress by inversion of the rearfoot (-) pain on palpation to the posterior talo-fibular ligament, with and without stress (-) pain on palpation to the proximal or distal fibula (-) pain on palpation along the peroneal tendons, with and without resistance (-) pain on palpation to the 5th metatarsal base, anterior calcaneal tuberosity 5/5 muscle strength to extrinsic pedal muscle groups (-) evidence of compartment syndrome X-rays left foot /ankle 09/13/2024: (-) Fracture, (-) dislocation, (-) arthritis, (-) osteochondral defect MRI left ankle 10/03/2024: (-) osseous or ligamentous abnormalities Venous studies left lower extremity 10/14/2024: (-) Thrombosis ASSESSMENT: RADICULOPATHY, LEFT LOWER EXTREMITY --- Ankle sprain, LEFT - resolved 10/09/2024 History of cancer ( on monthly chemotherapy) PLAN: - Extensive visit discussing possible pedal complications including (but not limited to) arthritis - Pain - well controlled with [id number] NSAIDs - Cast - patient defers, understands risk, patient requesting to complete further imaging studies before considering casting - X-rays - Reviewed - MRI - reviewed - VASCULAR- reviewed - Weight bearing - as tolerated in well supportive shoes, use immobilization CAM boot as needed, DISPENSED 09/25/2024 - physical therapy -patient defers, states very active with no decrease in function or strength - Return 4 weeks for neuropathy eval, consider physical therapy Patient advised to report to my clinic or the emergency room immediately with any questions or concerns.Patient Instructions:Discussion: A detailed discussion was provided to the patient with specific reference to etiology, pathology, alternate treatment options, and prognosis. All risks and complications (including side effects) with each treatment/medication alternative were outlined in detail including but not limited to: Pain, swelling, numbness,loss of function, loss of limb, bleeding, hematoma, scarring, failure to relieve condition, surgery, additional/revisional surgery, reflex sympathetic dystrophy, complex regional pain syndrome, reoccurrence of deformity, joint stiffness, flail toe, bone and/or soft tissue infection, blood clots, pulmonary embolism, possible ,delayed or non-healing. X-rays, graphs and drawings were all used to assist with patient comprehension when appropriate. All patients questions were answered and stated they fully understood. No guarantee as to results or outcome of treatment was made. I have discussed with the patient or legally responsible person prior to obtaining consent: the risks, potential benefits and drawbacks, significant alternatives, potential for problems related to recuperation, likelihood of success, and possible results of non-treatment, and the patient or the legally responsible person has agreed to proceed. [id number] 14:13:59Upcoming Encounters Health Maintenance Due Date Last Done Comments Medicare Annual Wellness (AWV) 1935 DTaP/Tdap/Td Vaccines (1 - Tdap) 02/19/1955 Pneumococcal Vaccine: 50+ Ye ars (1 of 1 - PCV) 02/19/1986 Zoster Vaccines (1 of 2) 02/19/1986 Respiratory Syncytial Virus (RSV) Adult Series (1 - 1-dose 75+ series) 02/19/2011 Lipid Panel 07/01/2021 07/01/2016 Influenza Vaccine (Season Ended) 2025 HIB Vaccines Aged Out No longer eligi ble based on patient's age to complete this topic HPV Vaccines Aged Out No longer eligi ble based on patient's age to complete this topic Hepatitis A Vaccines Aged Out No long er eligible based on patient's age to complete this topic Hepatitis B Vaccines Aged Out No long er eligible based on patient's age to complete this topic IPV Vaccines Aged Out No longer eligi ble based on patient's age to complete this topic Meningococcal Vaccine Aged Out No flavia reji eligible based on patient's age to complete this topic Rotavirus Vaccines Aged Out No longer eligible based on patient's age to complete this topic [facility] [id number] 14:13:59 Diagnosis Abnormal foot finding - Prim marii [facility] [id number] 14:13:59 [place] [id number] 12:34:05* Bushra Chavez, ANUJ - 10/16/2024 11:30 AM CDT CHIEF COMPLAINT: Ankle sprain, LEFT - resolved 10/09/2024 HISTORY OF PRESENT ILLNESS: Patient states LEFT ankle pain has resolved Patient states LEFT calf pain is significantly improved, starting approximately October 04, 2023 Patient denies infection, injury, wounds in the bilateral lower extremity Patient states pain currently rated 2/10 on palpation, left calf --- Patient states painful lateral ankle, after exiting his vehicle, approximately September 03, 2024 Patient states that he may have slightly rolled his ankle causing LEFT lateral ankle pain Patient denies hearing a pop, however gradually felt more pain throughout the day Patient states pain is currently rated 4/10 on palpation, LEFT lateral ankle OBJECTIVE: PHYSICAL EXAM OF THE LOWER EXTREMITY VASCULAR: (-) edema, lateral ankle (-) ecchymosis, lateral ankle (-) erythema Dorsal pedis pulse, graded 2/4; bilateral Posterior tibial pulse, graded 2/4; bilateral Capillary Refill time: within normal limits; bilateral (-) varicosities (+) pedal hair growth NEUROLOGICAL: (+) sensation with 5.07 [place] monofilament examination to the most distal lower extremity (-) tinel's sign (-) clonus present DERMATOLOGICAL: (-) open wounds (-) signs of soft tissue infection (-) ischemic tissue (-) abscess (-) other primary or secondary lesions (+) normal temperature when compared to contralateral limb (+) normal color, tugor, and elasticity MUSCULOSKELETAL: (+) mild pain on palpation, left calf (-)deep vein thrombosis, left calf (-) anterior draw sign with dimpling (-) noted when compared to the contralateral limb (-) pain on palpation to the anterior talo-fibular ligament, during stress by plantar flexion and inversion of the foot (-) pain on palpation to the the calcaneal fibular ligament, during stress by inversion of the rearfoot (-) pain on palpation to the posterior talo-fibular ligament, with and without stress (-) pain on palpation to the proximal or distal fibula (-) pain on palpation along the peroneal tendons, with and without resistance (-) pain on palpation to the 5th metatarsal base, anterior calcaneal tuberosity 5/5 muscle strength to extrinsic pedal muscle groups (-) evidence of compartment syndrome X-rays left foot /ankle 09/13/2024: (-) Fracture, (-) dislocation, (-) arthritis, (-) osteochondral defect MRI left ankle 10/03/2024: (-) osseous or ligamentous abnormalities Venous studies left lower extremity 10/14/2024: (-) Thrombosis ASSESSMENT: Arthritis, left ankle --- Ankle sprain, LEFT - resolved 10/09/2024 PLAN: - Extensive visit discussing possible pedal complications including (but not limited to) arthritis - Pain - well controlled with [id number] NSAIDs - Cast - patient defers, understands risk, patient requesting to complete further imaging studies before considering casting - X-rays - Reviewed - MRI - reviewed - VASCULAR- reviewed - Weight bearing - use immobilization CAM boot, DISPENSED 09/25/2024 - Return 2 weeks to transition out of immobilization boot and start physical therapy Patient advised to report to my clinic or the emergency room immediately with any questions or concerns.Patient Instructions:Discussion: A detailed discussion was provided to the patient with specific reference to etiology, pathology, alternate treatment options, and prognosis. All risks and complications (including side effects) with each treatment/medication alternative were outlined in detail including but not limited to: Pain, swelling, numbness,loss of function, loss of limb, bleeding, hematoma, scarring, failure to relieve condition, surgery, additional/revisional surgery, reflex sympathetic dystrophy, complex regional pain syndrome, reoccurrence of deformity, joint stiffness, flail toe, bone and/or soft tissue infection, blood clots, pulmonary embolism, possible ,delayed or non-healing. X-rays, graphs and drawings were all used to assist with patient comprehension when appropriate. All patients questions were answered and stated they fully understood. No guarantee as to results or outcome of treatment was made. I have discussed with the patient or legally responsible person prior to obtaining consent: the risks, potential benefits and drawbacks, significant alternatives, potential for problems related to recuperation, likelihood of success, and possible results of non-treatment, and the patient or the legally responsible person has agreed to proceed. [facility] [id number] 12:34:05Upcoming Encounters Health Maintenance Due Date Last Done Comments Medicare Annual Wellness (AWV) 1935 DTaP/Tdap/Td Vaccines (1 - Tdap) 02/19/1955 Pneumococcal Vaccine: 50+ Ye ars (1 of 1 - PCV) 02/19/1986 Zoster Vaccines (1 of 2) 02/19/1986 Respiratory Syncytial Virus (RSV) or >=60 (1 - 1-dose 75+ series) 02/19/2011 Lipid Panel 07/01/2021 07/01/2016 Influenza Vaccine (Season Ended) 2025 HIB Vaccines Aged Out No longer eligi ble based on patient's age to complete this topic HPV Vaccines Aged Out No longer eligi ble based on patient's age to complete this topic Hepatitis A Vaccines Aged Out No long er eligible based on patient's age to complete this topic Hepatitis B Vaccines Aged Out No long er eligible based on patient's age to complete this topic IPV Vaccines Aged Out No longer eligi ble based on patient's age to complete this topic Meningococcal Vaccine Aged Out No flavia reji eligible based on patient's age to complete this topic Rotavirus Vaccines Aged Out No longer eligible based on patient's age to complete this topic [facility] [id number] 12:34:05 Diagnosis Abnormal foot finding - Prim marii [facility] [id number] 12:34:05 [facility] [id number] 12:34:05* Bushra Chavez DPM - 10/16/2024 11:30 AM CDT CHIEF COMPLAINT: Ankle sprain, LEFT - resolved 10/09/2024 HISTORY OF PRESENT ILLNESS: Patient states LEFT ankle pain has resolved Patient states LEFT calf pain is significantly improved, starting approximately October 04, 2023 Patient denies infection, injury, wounds in the bilateral lower extremity Patient states pain currently rated 2/10 on palpation, left calf --- Patient states painful lateral ankle, after exiting his vehicle, approximately September 03, 2024 Patient states that he may have slightly rolled his ankle causing LEFT lateral ankle pain Patient denies hearing a pop, however gradually felt more pain throughout the day Patient states pain is currently rated 4/10 on palpation, LEFT lateral ankle OBJECTIVE: PHYSICAL EXAM OF THE LOWER EXTREMITY VASCULAR: (-) edema, lateral ankle (-) ecchymosis, lateral ankle (-) erythema Dorsal pedis pulse, graded 2/4; bilateral Posterior tibial pulse, graded 2/4; bilateral Capillary Refill time: within normal limits; bilateral (-) varicosities (+) pedal hair growth NEUROLOGICAL: (+) sensation with 5.07 [place] monofilament examination to the most distal lower extremity (-) tinel's sign (-) clonus present DERMATOLOGICAL: (-) open wounds (-) signs of soft tissue infection (-) ischemic tissue (-) abscess (-) other primary or secondary lesions (+) normal temperature when compared to contralateral limb (+) normal color, tugor, and elasticity MUSCULOSKELETAL: (+) mild pain on palpation, left calf (-)deep vein thrombosis, left calf (-) anterior draw sign with dimpling (-) noted when compared to the contralateral limb (-) pain on palpation to the anterior talo-fibular ligament, during stress by plantar flexion and inversion of the foot (-) pain on palpation to the the calcaneal fibular ligament, during stress by inversion of the rearfoot (-) pain on palpation to the posterior talo-fibular ligament, with and without stress (-) pain on palpation to the proximal or distal fibula (-) pain on palpation along the peroneal tendons, with and without resistance (-) pain on palpation to the 5th metatarsal base, anterior calcaneal tuberosity 5/5 muscle strength to extrinsic pedal muscle groups (-) evidence of compartment syndrome X-rays left foot /ankle 09/13/2024: (-) Fracture, (-) dislocation, (-) arthritis, (-) osteochondral defect MRI left ankle 10/03/2024: (-) osseous or ligamentous abnormalities Venous studies left lower extremity 10/14/2024: (-) Thrombosis ASSESSMENT: Arthritis, left ankle --- Ankle sprain, LEFT - resolved 10/09/2024 PLAN: - Extensive visit discussing possible pedal complications including (but not limited to) arthritis - Pain - well controlled with [id number] NSAIDs - Cast - patient defers, understands risk, patient requesting to complete further imaging studies before considering casting - X-rays - Reviewed - MRI - reviewed - VASCULAR- reviewed - Weight bearing - use immobilization CAM boot, DISPENSED 09/25/2024 - Return 2 weeks to transition out of immobilization boot and start physical therapy Patient advised to report to my clinic or the emergency room immediately with any questions or concerns.Patient Instructions:Discussion: A detailed discussion was provided to the patient with specific reference to etiology, pathology, alternate treatment options, and prognosis. All risks and complications (including side effects) with each treatment/medication alternative were outlined in detail including but not limited to: Pain, swelling, numbness,loss of function, loss of limb, bleeding, hematoma, scarring, failure to relieve condition, surgery, additional/revisional surgery, reflex sympathetic dystrophy, complex regional pain syndrome, reoccurrence of deformity, joint stiffness, flail toe, bone and/or soft tissue infection, blood clots, pulmonary embolism, possible ,delayed or non-healing. X-rays, graphs and drawings were all used to assist with patient comprehension when appropriate. All patients questions were answered and stated they fully understood. No guarantee as to results or outcome of treatment was made. I have discussed with the patient or legally responsible person prior to obtaining consent: the risks, potential benefits and drawbacks, significant alternatives, potential for problems related to recuperation, likelihood of success, and possible results of non-treatment, and the patient or the legally responsible person has agreed to proceed. [facility] [id number] 12:34:05Upcoming Encounters Health Maintenance Due Date Last Done Comments Medicare Annual Wellness (AWV) 1935 DTaP/Tdap/Td Vaccines (1 - Tdap) 02/19/1955 Pneumococcal Vaccine: 50+ Ye ars (1 of 1 - PCV) 02/19/1986 Zoster Vaccines (1 of 2) 02/19/1986 Respiratory Syncytial Virus (RSV) or >=60 (1 - 1-dose 75+ series) 02/19/2011 Lipid Panel 07/01/2021 07/01/2016 Influenza Vaccine (Season Ended) 2025 HIB Vaccines Aged Out No longer eligi ble based on patient's age to complete this topic HPV Vaccines Aged Out No longer eligi ble based on patient's age to complete this topic Hepatitis A Vaccines Aged Out No long er eligible based on patient's age to complete this topic Hepatitis B Vaccines Aged Out No long er eligible based on patient's age to complete this topic IPV Vaccines Aged Out No longer eligi ble based on patient's age to complete this topic Meningococcal Vaccine Aged Out No flavia reji eligible based on patient's age to complete this topic Rotavirus Vaccines Aged Out No longer eligible based on patient's age to complete this topic [facility] [id number] 12:34:05 Diagnosis Abnormal foot finding - Prim marii [facility] [id number] 12:34:05 [place] [id number] 11:16:15* Bushra Chavez, DP - 10/09/2024 10:50 AM CDT CHIEF COMPLAINT: DVT, LEFT Ankle sprain, LEFT - resolved 10/09/2024 HISTORY OF PRESENT ILLNESS: Patient states left ankle pain has resolved Patient states new onset of left calf pain, starting approximately October 04, 2023 Patient denies infection, injury, wounds in the bilateral lower extremity --- Patient states painful lateral ankle, after exiting his vehicle, approximately September 03, 2024 Patient states that he may have slightly rolled his ankle causing LEFT lateral ankle pain Patient denies hearing a pop, however gradually felt more pain throughout the day Patient states pain is currently rated 4/10 on palpation, LEFT lateral ankle OBJECTIVE: PHYSICAL EXAM OF THE LOWER EXTREMITY VASCULAR: (-) edema, lateral ankle (-) ecchymosis, lateral ankle (-) erythema Dorsal pedis pulse, graded 2/4; bilateral Posterior tibial pulse, graded 2/4; bilateral Capillary Refill time: within normal limits; bilateral (-) varicosities (+) pedal hair growth NEUROLOGICAL: (+) sensation with 5.07 [place] monofilament examination to the most distal lower extremity (-) tinel's sign (-) clonus present DERMATOLOGICAL: (-) open wounds (-) signs of soft tissue infection (-) ischemic tissue (-) abscess (-) other primary or secondary lesions (+) normal temperature when compared to contralateral limb (+) normal color, tugor, and elasticity MUSCULOSKELETAL: (+) pain on palpation, left calf (+) possible deep vein thrombosis, left calf (-) anterior draw sign with dimpling (-) noted when compared to the contralateral limb (-) pain on palpation to the anterior talo-fibular ligament, during stress by plantar flexion and inversion of the foot (-) pain on palpation to the the calcaneal fibular ligament, during stress by inversion of the rearfoot (-) pain on palpation to the posterior talo-fibular ligament, with and without stress (-) pain on palpation to the proximal or distal fibula (-) pain on palpation along the peroneal tendons, with and without resistance (-) pain on palpation to the 5th metatarsal base, anterior calcaneal tuberosity 5/5 muscle strength to extrinsic pedal muscle groups (-) evidence of compartment syndrome X-rays left foot /ankle 09/13/2024: (-) Fracture, (-) dislocation, (-) arthritis, (-) osteochondral defect MRI left ankle 10/03/2024: No osseous or ligamentous abnormalities ASSESSMENT: DVT, LEFT --- Ankle sprain, LEFT - resolved 10/09/2024 PLAN: - Extensive visit WITH discussing possible pedal complications including (but not limited to) arthritis and reoccurring injury with possible fracture - Pain - well controlled with [id number] NSAIDs - Cast - patient defers, understands risk, patient requesting to complete further imaging studies before considering casting - X-rays - Reviewed - MRI - reviewed - VASCULAR- ORDERED 10/09/2024 VENOUS STUDIES - Weight bearing - as tolerated in well supportive shoes, may discontinue previously provided CAM boot DISPENSED 09/25/2024 - Return 1 week to review vascular study results Patient advised to report to my clinic or the emergency room immediately with any questions or concerns.Patient Instructions:Discussion: A detailed discussion was provided to the patient with specific reference to etiology, pathology, alternate treatment options, and prognosis. All risks and complications (including side effects) with each treatment/medication alternative were outlined in detail including but not limited to: Pain, swelling, numbness,loss of function, loss of limb, bleeding, hematoma, scarring, failure to relieve condition, surgery, additional/revisional surgery, reflex sympathetic dystrophy, complex regional pain syndrome, reoccurrence of deformity, joint stiffness, flail toe, bone and/or soft tissue infection, blood clots, pulmonary embolism, possible ,delayed or non-healing. X-rays, graphs and drawings were all used to assist with patient comprehension when appropriate. All patients questions were answered and stated they fully understood. No guarantee as to results or outcome of treatment was made. I have discussed with the patient or legally responsible person prior to obtaining consent: the risks, potential benefits and drawbacks, significant alternatives, potential for problems related to recuperation, likelihood of success, and possible results of non-treatment, and the patient or the legally responsible person has agreed to proceed. [facility]ime [facility] [place]vhwadx[facility]127[facility] 11:16:15Upcoming Encounters Health Maintenance Due Date Last Done Comments Medicare Annual Wellness (AWV) 1935 DTaP/Tdap/Td Vaccines (1 - Tdap) 02/19/1955 Pneumococcal Vaccine: 50+ Ye ars (1 of 1 - PCV) 02/19/1986 Zoster Vaccines (1 of 2) 02/19/1986 Respiratory Syncytial Virus (RSV) or >=60 (1 - 1-dose 75+ series) 02/19/2011 Lipid Panel 07/01/2021 07/01/2016 Influenza Vaccine (#1) 2024 HIB Vaccines Aged Out No longer eligi ble based on patient's age to complete this topic HPV Vaccines Aged Out No longer eligi ble based on patient's age to complete this topic Hepatitis A Vaccines Aged Out No long er eligible based on patient's age to complete this topic Hepatitis B Vaccines Aged Out No long er eligible based on patient's age to complete this topic IPV Vaccines Aged Out No longer eligi ble based on patient's age to complete this topic Meningococcal Vaccine Aged Out No flavia reji eligible based on patient's age to complete this topic Rotavirus Vaccines Aged Out No longer eligible based on patient's age to complete this topic [facility] [id number] 11:16:15 Diagnosis Abnormal foot finding - Prim marii [facility] [id number] 11:16:15 [facility] [id number] 11:16:14* Bushra Chavez, ANUJ - 10/09/2024 10:50 AM CDT CHIEF COMPLAINT: DVT, LEFT Ankle sprain, LEFT - resolved 10/09/2024 HISTORY OF PRESENT ILLNESS: Patient states left ankle pain has resolved Patient states new onset of left calf pain, starting approximately October 04, 2023 Patient denies infection, injury, wounds in the bilateral lower extremity --- Patient states painful lateral ankle, after exiting his vehicle, approximately September 03, 2024 Patient states that he may have slightly rolled his ankle causing LEFT lateral ankle pain Patient denies hearing a pop, however gradually felt more pain throughout the day Patient states pain is currently rated 4/10 on palpation, LEFT lateral ankle OBJECTIVE: PHYSICAL EXAM OF THE LOWER EXTREMITY VASCULAR: (-) edema, lateral ankle (-) ecchymosis, lateral ankle (-) erythema Dorsal pedis pulse, graded 2/4; bilateral Posterior tibial pulse, graded 2/4; bilateral Capillary Refill time: within normal limits; bilateral (-) varicosities (+) pedal hair growth NEUROLOGICAL: (+) sensation with 5.07 [place] monofilament examination to the most distal lower extremity (-) tinel's sign (-) clonus present DERMATOLOGICAL: (-) open wounds (-) signs of soft tissue infection (-) ischemic tissue (-) abscess (-) other primary or secondary lesions (+) normal temperature when compared to contralateral limb (+) normal color, tugor, and elasticity MUSCULOSKELETAL: (+) pain on palpation, left calf (+) possible deep vein thrombosis, left calf (-) anterior draw sign with dimpling (-) noted when compared to the contralateral limb (-) pain on palpation to the anterior talo-fibular ligament, during stress by plantar flexion and inversion of the foot (-) pain on palpation to the the calcaneal fibular ligament, during stress by inversion of the rearfoot (-) pain on palpation to the posterior talo-fibular ligament, with and without stress (-) pain on palpation to the proximal or distal fibula (-) pain on palpation along the peroneal tendons, with and without resistance (-) pain on palpation to the 5th metatarsal base, anterior calcaneal tuberosity 5/5 muscle strength to extrinsic pedal muscle groups (-) evidence of compartment syndrome X-rays left foot /ankle 09/13/2024: (-) Fracture, (-) dislocation, (-) arthritis, (-) osteochondral defect MRI left ankle 10/03/2024: No osseous or ligamentous abnormalities ASSESSMENT: DVT, LEFT --- Ankle sprain, LEFT - resolved 10/09/2024 PLAN: - Extensive visit WITH discussing possible pedal complications including (but not limited to) arthritis and reoccurring injury with possible fracture - Pain - well controlled with [id number] NSAIDs - Cast - patient defers, understands risk, patient requesting to complete further imaging studies before considering casting - X-rays - Reviewed - MRI - reviewed - VASCULAR- ORDERED 10/09/2024 VENOUS STUDIES - Weight bearing - as tolerated in well supportive shoes, may discontinue previously provided CAM boot DISPENSED 09/25/2024 - Return 1 week to review vascular study results Patient advised to report to my clinic or the emergency room immediately with any questions or concerns.Patient Instructions:Discussion: A detailed discussion was provided to the patient with specific reference to etiology, pathology, alternate treatment options, and prognosis. All risks and complications (including side effects) with each treatment/medication alternative were outlined in detail including but not limited to: Pain, swelling, numbness,loss of function, loss of limb, bleeding, hematoma, scarring, failure to relieve condition, surgery, additional/revisional surgery, reflex sympathetic dystrophy, complex regional pain syndrome, reoccurrence of deformity, joint stiffness, flail toe, bone and/or soft tissue infection, blood clots, pulmonary embolism, possible ,delayed or non-healing. X-rays, graphs and drawings were all used to assist with patient comprehension when appropriate. All patients questions were answered and stated they fully understood. No guarantee as to results or outcome of treatment was made. I have discussed with the patient or legally responsible person prior to obtaining consent: the risks, potential benefits and drawbacks, significant alternatives, potential for problems related to recuperation, likelihood of success, and possible results of non-treatment, and the patient or the legally responsible person has agreed to proceed. [facility] [id number] 11:16:14Upcoming Encounters Health Maintenance Due Date Last Done Comments Medicare Annual Wellness (AWV) 1935 DTaP/Tdap/Td Vaccines (1 - Tdap) 02/19/1955 Pneumococcal Vaccine: 50+ Ye ars (1 of 1 - PCV) 02/19/1986 Zoster Vaccines (1 of 2) 02/19/1986 Respiratory Syncytial Virus (RSV) or >=60 (1 - 1-dose 75+ series) 02/19/2011 Lipid Panel 07/01/2021 07/01/2016 Influenza Vaccine (#1) 2024 HIB Vaccines Aged Out No longer eligi ble based on patient's age to complete this topic HPV Vaccines Aged Out No longer eligi ble based on patient's age to complete this topic Hepatitis A Vaccines Aged Out No long er eligible based on patient's age to complete this topic Hepatitis B Vaccines Aged Out No long er eligible based on patient's age to complete this topic IPV Vaccines Aged Out No longer eligi ble based on patient's age to complete this topic Meningococcal Vaccine Aged Out No flavia reji eligible based on patient's age to complete this topic Rotavirus Vaccines Aged Out No longer eligible based on patient's age to complete this topic [place] [id number] 11:16:14 Diagnosis Abnormal foot finding - Prim marii [facility] [id number] 11:16:14 [place] [id number] 13:33:12 [place] [id number] 13:33:12* Bushra Chavez, ANUJ - 09/25/2024 12:50 PM CDT CHIEF COMPLAINT: Ankle sprain, LEFT HISTORY OF PRESENT ILLNESS: Patient states painful lateral ankle, after exiting his vehicle, approximately September 03, 2024 Patient states that he may have slightly rolled his ankle causing LEFT lateral ankle pain Patient denies hearing a pop, however gradually felt more pain throughout the day Patient states pain is currently rated 4/10 on palpation, LEFT lateral ankle OBJECTIVE: PHYSICAL EXAM OF THE LOWER EXTREMITY VASCULAR: (-) edema, lateral ankle (-) ecchymosis, lateral ankle (-) erythema Dorsal pedis pulse, graded 2/4; bilateral Posterior tibial pulse, graded 2/4; bilateral Capillary Refill time: within normal limits; bilateral (-) varicosities (+) pedal hair growth NEUROLOGICAL: (+) sensation with 5.07 [place] monofilament examination to the most distal lower extremity (-) tinel's sign (-) clonus present DERMATOLOGICAL: (-) open wounds (-) signs of soft tissue infection (-) ischemic tissue (-) abscess (-) other primary or secondary lesions (+) normal temperature when compared to contralateral limb (+) normal color, tugor, and elasticity MUSCULOSKELETAL: (+) anterior draw sign with dimpling (-) noted when compared to the contralateral limb (+) pain on palpation to the anterior talo-fibular ligament, during stress by plantar flexion and inversion of the foot (+) pain on palpation to the the calcaneal fibular ligament, during stress by inversion of the rearfoot (-) pain on palpation to the posterior talo-fibular ligament, with and without stress (-) pain on palpation to the proximal or distal fibula (-) pain on palpation along the peroneal tendons, with and without resistance (-) pain on palpation to the 5th metatarsal base, anterior calcaneal tuberosity 5/5 muscle strength to extrinsic pedal muscle groups (-) evidence of compartment syndrome (-) evidence of deep vein thrombosis X-rays left foot /ankle 09/13/2024: (-) Fracture, (-) dislocation, (-) arthritis, (-) osteochondral defect ASSESSMENT: Ankle sprain, LEFT Anterior talo-fibular ligament rupture Calcaneal fibular ligament rupture. PLAN: - Extensive visit discussing possible pedal complications including (but not limited to) arthritis and reoccurring injury with possible fracture - Pain - well controlled with [id number] NSAIDs - Cast - patient defers, understands risk, patient requesting to complete further imaging studies before considering casting - X-rays - Reviewed - MRI - ORDERED 09/25/2024 - Weight bearing - educated about crutches, reduced in CAM boot DISPENSED 09/25/2024 - Return 2 weeks for imaging review Patient advised to report to my clinic or the emergency room immediately with any questions or concerns.Patient Instructions:Discussion: A detailed discussion was provided to the patient with specific reference to etiology, pathology, alternate treatment options, and prognosis. All risks and complications (including side effects) with each treatment/medication alternative were outlined in detail including but not limited to: Pain, swelling, numbness,loss of function, loss of limb, bleeding, hematoma, scarring, failure to relieve condition, surgery, additional/revisional surgery, reflex sympathetic dystrophy, complex regional pain syndrome, reoccurrence of deformity, joint stiffness, flail toe, bone and/or soft tissue infection, blood clots, pulmonary embolism, possible ,delayed or non-healing. X-rays, graphs and drawings were all used to assist with patient comprehension when appropriate. All patients questions were answered and stated they fully understood. No guarantee as to results or outcome of treatment was made. I have discussed with the patient or legally responsible person prior to obtaining consent: the risks, potential benefits and drawbacks, significant alternatives, potential for problems related to recuperation, likelihood of success, and possible results of non-treatment, and the patient or the legally responsible person has agreed to proceed. [facility] [id number] 13:33:12Upcoming Encounters Health Maintenance Due Date Last Done Comments Medicare Annual Wellness (AWV) 1935 DTaP/Tdap/Td Vaccines (1 - Tdap) 02/19/1955 Pneumococcal Vaccine: 50+ Ye ars (1 of 1 - PCV) 02/19/1986 Zoster Vaccines (1 of 2) 02/19/1986 Respiratory Syncytial Virus (RSV) or >=60 (1 - 1-dose 75+ series) 02/19/2011 Lipid Panel 07/01/2021 07/01/2016 Influenza Vaccine (#1) 2024 HIB Vaccines Aged Out No longer eligi ble based on patient's age to complete this topic HPV Vaccines Aged Out No longer eligi ble based on patient's age to complete this topic Hepatitis A Vaccines Aged Out No long er eligible based on patient's age to complete this topic Hepatitis B Vaccines Aged Out No long er eligible based on patient's age to complete this topic IPV Vaccines Aged Out No longer eligi ble based on patient's age to complete this topic Meningococcal Vaccine Aged Out No flavia reji eligible based on patient's age to complete this topic Rotavirus Vaccines Aged Out No longer eligible based on patient's age to complete this topic [place] [id number] 13:33:12 Diagnosis Abnormal foot finding - Prim marii [place]
[2024-11-25] MEDS ORDERED: ACETAMINOPHEN 325 MG TABLET ONE (14:17)
[2024-11-25] MEDS ORDERED: NA CHLORIDE 0.9% 250 ML ONE (14:17)
[2024-11-25 14:28] LABS: Absolute Lymphocytes (CBC) 0.2 K/uL (0.7-4.9); Absolute Neutrophil 5.4 K/uL (1.8-8.0); Basophils % 0.2 % (0-1.3); Eosinophils % 0.1 % (0-4.4); Hematocrit 46.3 % (39.6-49.0); Hemoglobin 15.8 g/dL (13.6-17.9); Lymphocytes % 3.2 % (15.3-44.8); MCH 31.7 pg (27.0-35.0); MCHC 34.1 g/dL (32.0-36.0); MCV 92.9 fL (80-100); MPV 7.6 fL (7.6-11.3); Monocytes % 0.8 % (3.3-12.3); Neutrophils % 95.7 % (41.7-73.7); Nucleated Red Blood Cells % 0.1 % (0-0); Platelets 170 thou/uL (152-406); RBC Red Blood Cell Count 4.98 M/uL (4.33-5.43); Red Cell Distribution Width 14.4 % (12.1-15.2)
[2024-11-25 14:41] LABS: PT Prothrombin Time 11.2 SECONDS (10-13.0); PTT, Activated Partial Thromb 28.3 SECONDS (27.2-37.4); Protime INR 0.98
[2024-11-25 14:53] LABS: Albumin 4.4 g/dL (3.4-5.0); Albumin/Globulin Ratio 1.5 (1.1-1.8); Anion Gap 8.9 mEq/L (5.0-15.0); Potassium 3.9 mEq/L (3.5-5.1); Protein, Total 7.4 g/dL (6.4-8.2)
[2024-11-25 15:33] LABS: Blood Morphology Comment NOT SEEN (NOT SEEN); Platelet Estimate ADEQ; White Blood Cell Scan OK (OK)
--- NOTE | 2024-11-25 15:51 | RAD REPORT ---
EXAMINATION: Abdomen Pelvis W Contrast CLINICAL INDICATION: Male, 89 years old.diarrhea, fever TECHNIQUE: CT abdomen and pelvis was performed, after the administration of IV contrast, as per [facility] protocol. Axial, sagittal and coronal reconstructions were obtained. One or more of the following dose reduction techniques were used: Automated exposure control, adjustment of the mA and/o r kV according to patient size, and/or iterative reconstruction. Unless otherwise specified, incidental findings do not require dedicated imaging follow-up. [id number]. COMPARISON: 07/17/2024, 10/15/2023 FINDINGS: LOWER CHEST: Small left pleural effusion and trace right pleural effusion.No significant pericardial effusion. Mild coronary artery calcifications.Large hiatal hernia. UPPER GI: No significant abnormality. LIVER: No significant focal abnormality. GALLBLADDER/BILE DUCTS: No biliary ductal dilatation.? PANCREAS: No mass, ductal dilation, or eugenio-pancreatic fluid. SPLEEN: Unremarkable. ADRENALS: No adrenal masses. KIDNEYS AND URETERS: No hydronephrosis.Low density and/or too small to characterize renal lesions whi ch are statistically benign.Nonobstructing renal calculi. ABDOMINAL AORTA AND OTHER VESSELS: Moderate atherosclerotic changes without aortic aneurysm. PERITONEUM: No abnormal free fluid. No free air. LYMPH NODES: No pathologic lymphadenopathy. ABDOMINAL WALL: Unremarkable SMALL BOWEL/COLON: Small bowel has normal course and caliber. No colonic wall thickening or pericolon ic inflammatory changes. URINARY BLADDER: Underdistended but grossly unremarkable. REPRODUCTIVE ORGANS: Moderate prostatomegaly. TURP defect. MUSCULOSKELETAL: Remote L5 compression fracture. ADDITIONAL FINDINGS: None. IMPRESSION: No acute findings within the abdomen or pelvis. Incidental findings as noted above.
--- NOTE | 2024-11-25 16:53 | ER ---
Nurse's Notes [facility] Name: Brian Brantley Age: 89 yrs Sex: Male : 1935 Arrival Date: 11/25/2024 Time: 13:43 Bed IW8 Private MD: Diagnosis: Infectious gastroenteritis and colitis, unspecified;Diarrhea, unspecified;Hypotension, unspecified Presentation: 11/25 13:59 Chief complaint: Patient states: Three episodes of diarrhea today. Coronavirus screen: ll1 Client denies travel out of the [place] in the last 14 days. At this time, the client does not indicate any symptoms associated with coronavirus-19. Ebola Screen: Patient denies travel to an Ebola-affected area in the 21 days before illness onset. Initial Sepsis Screen: Does the patient meet any 2 criteria? No. Patient's initial sepsis screen is negative. Does the patient have a suspected source of infection? No. Patient's initial sepsis screen is negative. Risk Assessment: Do you want to hurt yourself or someone else? Patient reports no desire to harm self or others. Onset of symptoms was November 25, 2024. 13:59 Method Of Arrival: Ambulatory ll1 13:59 Acuity: RONNY 3 ll1 Triage Assessment: 13:58 General: Appears in no apparent distress. Behavior is calm, cooperative, appropriate ll1 for age. Pain: Complains of pain in left leg. GI: Reports cramping, diarrhea. Musculoskeletal: Reports pain in left leg. Historical: - Allergies: 13:54 Phenobarbital; ll1 13:54 Prednisone; ll1 - PMHx: 13:54 Cataracts; Hyperlipidemia; CVA; Hypertension; throat cancer; ll1 - Immunization history:: Adult Immunizations up to date. - Infectious Disease History:: Denies. - Social history:: Smoking status: Patient/guardian denies using tobacco, the patient reports quitting approximately 50 years ago. - Family history:: not pertinent. - Hospitalizations: : No recent hospitalization is reported. Screenin:22 [facility] ED Fall Risk Assessment (Adult) History of falling in the last 3 months, cm10 including since admission No falls in past 3 months (0 pts) Confusion or Disorientation No (0 pts) Intoxicated or Sedated No (0 pts) Impaired Gait No (0 pts) Mobility Assist Device Used No (0 pt) Altered Elimination No (0 pt) Score/Fall Risk Level 0 - 2 = Low Risk Oriented to surroundings, Maintained a safe environment, Hourly rounding (assess needs \T\ fall precautionary measures) done. Abuse screen: Denies threats or abuse. Denies injuries from another. Nutritional screening: No deficits noted. Tuberculosis screening: No symptoms or risk factors identified. Assessment: 14:23 General: Appears in no apparent distress. comfortable, Behavior is calm, cooperative. cm10 Neuro: No deficits noted. Level of Consciousness is awake, alert, obeys commands, Oriented to person, place, time, situation, Appropriate for age. Respiratory: No deficits noted. Airway is patent Respiratory effort is even, unlabored, Respiratory pattern is regular, symmetrical. GI: Reports upper abdominal pain, diarrhea. Musculoskeletal: No deficits noted. Range of motion: intact in all extremities. 16:32 Reassessment: Patient appears in no apparent distress at this time. Patient and/or cm10 family updated on plan of care and expected duration. Pain level reassessed. Patient is alert, oriented x 3, equal unlabored respirations, skin warm/dry/pink. 18:03 Reassessment: Patient appears in no apparent distress at this time. Patient and/or cm10 family updated on plan of care and expected duration. Pain level reassessed. Patient is alert, oriented x 3, equal unlabored respirations, skin warm/dry/pink. 19:00 Reassessment: Patient appears in no apparent distress at this time. Patient and/or kj2 family updated on plan of care and expected duration. Pain level reassessed. Patient is alert, oriented x 3, equal unlabored respirations, skin warm/dry/pink. Vital Signs: 13:59 BP 170 / 84; Pulse 70; Resp 17; Temp 99.2(TE); Pulse Ox 99% ; Weight 55.34 kg; Height 5 ll1 ft. 9 in. ; Pain 5/10; 14:00 BP 167 / 73; Pulse 77; Resp 18; Pulse Ox 98% ; cm10 14:15 BP 144 / 65; Pulse 63; Resp 18; Pulse Ox 98% on R/A; cm10 14:30 BP 118 / 61; Pulse 71; Resp 18; Pulse Ox 96% on R/A; cm10 14:45 BP 112 / 53; Pulse 74; Resp 18; Pulse Ox 96% on R/A; cm10 15:00 BP 107 / 55; Pulse 64; Resp 16; Pulse Ox 97% on R/A; cm10 15:30 BP 122 / 62; Pulse 72; Resp 16; Pulse Ox 96% on R/A; cm10 16:00 BP 98 / 54; Pulse 96; Resp 16; Pulse Ox 96% on R/A; cm10 17:00 BP 108 / 59; Pulse 86; Resp 12; Pulse Ox 98% on R/A; cm10 18:00 BP 107 / 52; Pulse 65; Resp 12; Pulse Ox 99% ; cm10 19:00 BP 105 / 51; Pulse 64; Resp 20; Temp 98; Pulse Ox 100% ; kj2 13:59 Body Mass Index 18.02 (55.34 kg, 175.26 cm) ll1 13:59 Pain Scale: Adult ll1 ED Course: 13:46 Patient arrived in ED. al6 13:54 Martine Dodge, RN is Primary Nurse. cm10 13:54 Arm band placed on Patient placed in an exam room, on a stretcher. ll1 14:00 Kenney Church MD is Attending Physician. rn 14:00 Triage completed. ll1 14:12 Initial lab(s) drawn, by me, sent to lab. First set of blood cultures drawn by me. cm10 Inserted saline lock: 20 gauge in right forearm, using aseptic technique. Blood collected. Flushed with 10 mL NS. 14:18 EKG done, by ED staff, reviewed by Kenney Church MD. eb 14:22 Patient has correct armband on for positive identification. Bed in low position. Call cm10 light in reach. Side rails up X 1. Client placed on continuous cardiac and pulse oximetry monitoring. NIBP monitoring applied. satellite project site monitor on. 14:22 CBC with Diff Sent. cm10 14:22 CMP Sent. cm10 14:22 Lipase Sent. cm10 14:22 Ptt, Activated Sent. cm10 14:22 Protime (+inr) Sent. cm10 14:22 Lactate w/ 2H reflex if indic. Sent. cm10 15:[address] via stretcher. cm10 15:23 CT Abd/Pelvis - IV Contrast Only In Process Unspecified. EDMS 15:41 Second set of blood cultures drawn by ma. cm10 16:49 Sascha Flowers is Hospitalizing Provider. rn 21:54 No provider procedures requiring assistance completed. kj2 21:55 Provided Education on: call light. kj2 21:55 Patient admitted, IV remains in place. kj2 Administered Medications: 14:21 Drug: Acetaminophen PO 650 mg PO once Route: PO; cm10 16:33 Follow up: Response: No adverse reaction cm10 14:21 Drug: NS 0.9% IV 250 ml IV at bolus once; to be given as a bolus over 30 minutes Route: cm10 IV; Rate: bolus; Site: right forearm; 14:55 Follow up: Response: No adverse reaction; IV Status: Completed infusion; IV Intake: cm10 250ml 17:59 Drug: NS 0.9% IV 500 ml 500 ml IV at 1 bolus once; to be given as a bolus over 30 cm10 minutes Volume: 500 ml; Route: IV; Rate: 1 bolus; Site: right forearm; 19:06 Follow up: Response: No adverse reaction; IV Status: Completed infusion; IV Intake: cm10 500ml 17:59 Drug: Piperacillin-Tazobactam IVPB 3.375 grams IVPB once over 60 mins; (mix in NS 100 cm10 mL) Route: IVPB; Infused Over: 60 mins; Site: right forearm; 19:05 Follow up: Response: No adverse reaction; IV Status: Completed infusion; IV Intake: cm10 100ml Medication: 14:23 VIS not applicable for this client. cm10 Intake: 14:55 IV: 250ml; Total: 250ml. cm10 19:05 IV: 100ml; Total: 350ml. cm10 19:06 IV: 500ml; Total: 850ml. cm10 Outcome: 16:52 Decision to Hospitalize by Provider. rn 21:54 Admitted to Med/surg accompanied by tech, via wheelchair, kj2 21:54 Condition: stable 21:54 Instructed on the need for admit, 21:55 Patient left the ED. kj2 Signatures: Dispatcher [employer] EDMS Kenney Church MD MD rn Botello, Elizabeth eb Lewis, Lynsay RN RN ll1 Martine Dodge RN RN cm10 Wanda Cazares RN RN kj2 Christina Colon6
--- NOTE | 2024-11-25 16:53 | EDPHYS ---
Physician Documentation [facility] Name: Brian Brantley Age: 89 yrs Sex: Male : 1935 Arrival Date: 11/25/2024 Time: 13:43 Bed IW8 Private MD: ED Physician Kenney Church HPI: 11/25 14:17 This 89 yrs old Male presents to ER via Ambulatory with complaints of Diarrhea, shakes. rn 14:17 Patient reports diarrhea x 4 episodes, no blood in stool. No fever but reports rn uncontrollable shaking.. Historical: - Allergies: 13:54 Phenobarbital; ll1 13:54 Prednisone; ll1 - PMHx: 13:54 Cataracts; Hyperlipidemia; CVA; Hypertension; throat cancer; ll1 - Immunization history:: Adult Immunizations up to date. - Infectious Disease History:: Denies. - Social history:: Smoking status: Patient/guardian denies using tobacco, the patient reports quitting approximately 50 years ago. - Family history:: not pertinent. - Hospitalizations: : No recent hospitalization is reported. ROS: 14:17 Constitutional: Positive for chills Cardiovascular: Negative for chest pain, rn palpitations, and edema, Respiratory: Negative for shortness of breath, cough, wheezing, and pleuritic chest pain, Abdomen/GI: Negative for abdominal pain. Positive for diarrhea MS/Extremity: Negative for injury and deformity, Skin: Negative for injury, rash, and discoloration, Neuro: Negative for headache, weakness, numbness, tingling, and seizure, Exam: 14:17 Constitutional: This is a well developed, well nourished patient who is awake, alert, rn and in no acute distress. ENT: Dry mucous membranes Cardiovascular: Regular rate and rhythm. No pulse deficits. Respiratory: No increased work of breathing, no retractions or nasal flaring. Abdomen/GI: Soft, non-tender 17:02 ECG was reviewed by the Attending Physician. rn Vital Signs: 13:59 BP 170 / 84; Pulse 70; Resp 17; Temp 99.2(TE); Pulse Ox 99% ; Weight 55.34 kg; Height 5 ll1 ft. 9 in. ; Pain 5/10; 14:00 BP 167 / 73; Pulse 77; Resp 18; Pulse Ox 98% ; cm10 14:15 BP 144 / 65; Pulse 63; Resp 18; Pulse Ox 98% on R/A; cm10 14:30 BP 118 / 61; Pulse 71; Resp 18; Pulse Ox 96% on R/A; cm10 14:45 BP 112 / 53; Pulse 74; Resp 18; Pulse Ox 96% on R/A; cm10 15:00 BP 107 / 55; Pulse 64; Resp 16; Pulse Ox 97% on R/A; cm10 15:30 BP 122 / 62; Pulse 72; Resp 16; Pulse Ox 96% on R/A; cm10 16:00 BP 98 / 54; Pulse 96; Resp 16; Pulse Ox 96% on R/A; cm10 17:00 BP 108 / 59; Pulse 86; Resp 12; Pulse Ox 98% on R/A; cm10 18:00 BP 107 / 52; Pulse 65; Resp 12; Pulse Ox 99% ; cm10 19:00 BP 105 / 51; Pulse 64; Resp 20; Temp 98; Pulse Ox 100% ; kj2 13:59 Body Mass Index 18.02 (55.34 kg, 175.26 cm) ll1 13:59 Pain Scale: Adult ll1 MDM: 14:00 Medical Screening Exam initiated rn 16:48 Differential diagnosis: gastritis, pancreatitis, appendicitis, diverticulitis, viral rn gastroenteritis, gastroenteritis, Colitis. 16:48 Data reviewed: vital signs, nurses notes, lab test result(s), radiologic studies, CT rn scan, and as a result, I will admit patient. Consideration of Admission/Observation Patient was admitted/placed on observation. Escalation of care including admission/observation considered. Counseling: I had a detailed discussion with the patient and/or guardian regarding the historical points, exam findings, and any diagnostic results supporting the discharge/admit diagnosis, lab results, radiology results, the need for further work-up and treatment in the hospital. ED course: CT abdomen pelvis without acute findings. Patient has low-grade fever, rigors, and now borderline hypotension. Will admit to hospitalist service with antibiotics as I believe early infection, possible early colitis.. 11/25 14:01 Order name: CBC with Diff; Complete Time: 16:06 rn 11/25 14:01 Order name: CMP; Complete Time: 16: rn 11/25 14:01 Order name: Lipase; Complete Time: 16: rn 11/25 14:01 Order name: Blood Culture Adult (2) 11/25 14:01 Order name: Lactate w/ 2H reflex if indic.; Complete Time: 16:06 11/25 14:01 Order name: Protime (+inr); Complete Time: 16:06 11/25 14:01 Order name: Ptt, Activated; Complete Time: 16:06 rn 11/25 15:34 Order name: CBC Smear Scan; Complete Time: 16:06 EDMS 11/25 18:02 Order name: Basic Metabolic Panel EDMS 11/25 18:02 Order name: Basic Metabolic Panel EDMS 11/25 18:02 Order name: CBC with Automated Diff EDMS 11/25 18:02 Order name: CBC with Automated Diff EDMS 11/25 18:02 Order name: Magnesium EDMS 11/25 18:02 Order name: Magnesium EDMS 11/25 18:02 Order name: Phosphorus EDMS 11/25 18:02 Order name: Phosphorus EDMS 11/25 14:01 Order name: CT Abd/Pelvis - IV Contrast Only; Complete Time: 16:11/25 14:01 Order name: IV Saline Lock; Complete Time: 14:11/25 14:01 Order name: Labs collected and sent; Complete Time: 14:11/25 14:01 Order name: Cardiac monitoring; Complete Time: 14:11/25 14:01 Order name: EKG - Nurse/Tech; Complete Time: 14:18 11/25 14:01 Order name: IV Saline Lock - Large Bore; Complete Time: 14:11/25 14:01 Order name: O2 Per Protocol; Complete Time: 14:11/25 14:01 Order name: O2 Sat Monitoring; Complete Time: 14:11/25 14:01 Order name: Vital Signs; Complete Time: 14: rn EC:02 Rate is 94 beats/min. Rhythm is regular. QRS [place] is Normal. VA interval is normal. QRS rn interval is normal. QT interval is normal. No Q waves. T waves are Normal. No ST changes noted. Clinical impression: NSR w/ Non-specific ST/T Changes. Interpreted by me. Reviewed by me. Administered Medications: 14:21 Drug: Acetaminophen PO 650 mg PO once Route: PO; [facility] 16:33 Follow up: Response: No adverse reaction cm10 14:21 Drug: NS 0.9% IV 250 ml IV at bolus once; to be given as a bolus over 30 minutes Route: cm10 IV; Rate: bolus; Site: right forearm; 14:55 Follow up: Response: No adverse reaction; IV Status: Completed infusion; IV Intake: cm10 250ml 17:59 Drug: NS 0.9% IV 500 ml 500 ml IV at 1 bolus once; to be given as a bolus over 30 cm10 minutes Volume: 500 ml; Route: IV; Rate: 1 bolus; Site: right forearm; 19:06 Follow up: Response: No adverse reaction; IV Status: Completed infusion; IV Intake: cm10 500ml 17:59 Drug: Piperacillin-Tazobactam IVPB 3.375 grams IVPB once over 60 mins; (mix in NS 100 cm10 mL) Route: IVPB; Infused Over: 60 mins; Site: right forearm; 19:05 Follow up: Response: No adverse reaction; IV Status: Completed infusion; IV Intake: cm10 100ml Disposition Summary: 11/25/24 16:52 Hospitalization Ordered Notes: Hospitalization Status: Observation rn Provider: Sascha Flowers rn Location: Telemetry/MedSurg (observation) rn Condition: Stable rn Problem: new rn Symptoms: are unchanged rn Bed/Room Type: Standard rn Room Assignment: 208(11/25/24 20:40) rv1 Diagnosis - Infectious gastroenteritis and colitis, unspecified rn - Diarrhea, unspecified rn - Hypotension, unspecified rn Forms: - Medication Reconciliation Form rn - SBAR form rn - Leadership Thank You Letter rn Signatures: Dispatcher [employer] EDME Kenney Church MD MD rn Lewis, Lynsay RN RN ll1 Breanne Ashraf rv1 Martine Dodge RN RN cm10 Wanda Cazares RN RN kj2 Corrections: (The following items were deleted from the chart) 14:02 14:02 CBC+H.LAB.BRZ ordered. EDMS EDMS 14:02 14:02 COMPREHENSIVE METABOLIC PANEL+C.LAB.BRZ ordered. EDMS EDMS 14:02 14:02 LIPASE+C.LAB.BRZ ordered. EDMS EDMS 14:02 14:02 BLOOD CULTURE*+BA.LAB.BRZ ordered. EDMS EDMS 14:02 14:02 LACTATE+C.LAB.BRZ ordered. EDMS EDMS 14: 14:02 PROTIME (+INR)+COAG.LAB.BRZ ordered. EDMS EDMS 14: 14:02 PTT, ACTIVATED+COAG.LAB.BRZ ordered. EDMS EDMS 14: 14:02 Abdomen Pelvis W Con+CT.RAD.BRZ ordered. EDMS EDMS 20:40 16:52 rn rv1
[2024-11-25] MEDS ORDERED: NA CHLORIDE 0.9% 500 ML ONE (17:31)
[2024-11-25] MEDS ORDERED: PIPERACIL/TAZO 3.375 GM VIAL IV ONE (17:32)
[2024-11-25] MEDS ORDERED: NA CHLORIDE 0.9% 100 ML ONE (17:32)
[2024-11-25] MEDS ORDERED: ONDANSETRON 4 MG/2 ML VIAL IV PRN (17:57)
[2024-11-25] MEDS ORDERED: ACETAMINOPHEN 325 MG TABLET PO PRN (17:57)
[2024-11-25] MEDS: NA CHLORIDE 0.9% 1,000 ML IV SCH (18:00)
--- NOTE | 2024-11-25 18:08 | P.HP ---
Certification for Inpatient Patient admitted to: Observation With expected LOS: <2 Midnights Practitioner: I am a practitioner with admitting privileges, knowledge of patient current condition, hospital course, and medical plan of care. Services: Services provided to patient in accordance with Admission requirements found in Title 42 Section 412.3 of the Code of Federal Regulations Patient History Date of Service: 11/25/24 Reason for admission: Diarrhea and generalized weakness History of Present Illness: 89-year-old gentleman with a history of bladder cancer receiving bladder infusion chemotherapy once a month presented to the emergency department with a complaint of diarrhea of onset this morning. Patient reports he had constipation for a few days and so he took a tablet of senna followed by 2 cups of coffee. He then developed diarrhea and weakness. Family noted patient having rigors so they brought him to the emergency department. Evaluation in the emergency department revealed borderline low BP, no fever and no sepsis. No leukocytosis. CT abdomen pelvis was unremarkable except incidental findings of atherosclerotic diseases, small bilateral pleural effus ion, moderate prostatomegaly, TURP defect, remote L5 compression fracture and small renal lesions. Blood cultures taken. Given patient borderline low blood pressure, rigors and diarrhea patient is hos pitalized for further management. Allergies phenobarbital Allergy (Verified 10/31/24 09:27) Anaphylaxis prednisone Adverse Reaction (Verified 10/31/24 09:27) Nausea/Vomiting Home Medications: Aspirin 81 mg PO DAILY 04/01/17 Cholecalciferol (Vitamin D3) [Vitamin D3] 50 mcg PO DAILY 04/01/17 lisinopriL [Lisinopril] 5 mg PO DAILY 04/01/17 Atorvastatin Calcium 20 mg PO DAILY 11/03/23 Cyanocobalamin (Vitamin B-12) [Vitamin B-12] 1,000 mg PO DAILY 11/03/23 Levothyroxine Sodium 25 mcg PO DAILY 11/03/23 Multivit-Min/FA/Lycopen/Lutein [Centrum Silver Tablet] 1 tab PO DAILY 11/03/23 Vit C/E/Zn/Coppr/Lutein/Zeaxan [Preservision Areds 2 Chew Tab] 1 tab PO DAILY 11/03/23 - Past Medical/Surgical History Diabetic: No -: htn -: high cholesterol -: cancer neck -: 7in small intestines removed -: neck sx -: prostate sx -: johanna cataract sx - Family History Family History: Reviewed- Non-Contributory - Social History Alcohol use: No CD- Drugs: No Caffeine use: No Review of Systems Other: Patient denied any fever, he denied any abdominal pain. Patient denied any cough or shortness of breath. Patient denied any nausea or vomiting. Patient denied any headache. No reported confusion Except as documented, all other systems reviewed and negative. Physical Examination - Physical Exam General: Alert, In no apparent distress, Oriented x3 HEENT: Atraumatic, Normocephalic, Mucous membr. moist/pink, EOMI, Sclerae nonicteric Neck: Supple, JVD not distended Respiratory: Clear to auscultation bilaterally, Normal air movement Cardiovascular: No edema, Regular rate/rhythm, Normal S1 S2 Capillary refill: <2 Seconds Gastrointestinal: Normal bowel sounds, Soft and benign, Non-distended, No tenderness Musculoskeletal: No swelling, No tenderness Integumentary: No rashes, No cyanosis Neurological: Normal speech, Normal strength at 5/5 x4 extr, Cranial nerves 3-12 intact Lymphatics: No axilla or inguinal lymphadenopathy - Studies Laboratory Data (last 24 hrs) 11/25/24 11/25/24 11/25/24 14:12 14:12 14:12 WBC 5.60 Hgb 15.8 Hct 46.3 Plt Count 170 PT 11.2 INR 0.98 APTT 28.3 Sodium 136 Potassium 3.9 BUN 19 H Creatinine 1.12 Glucose 108 H Total Bilirubin 1.0 AST 29 ALT 32 Alkaline Phosphatase 80 Lipase 35 Assessment and Plan - Problems (Diagnosis) (1) Acute gastroenteritis Current Visit: Yes Status: Acute (2) History of bladder cancer Current Visit: Yes Status: Acute (3) H/O: CVA (cerebrovascular accident) Onset Date: 04/02/17 Current Visit: No Status: Chronic (4) HTN (hypertension) Onset Date: 04/02/17 Current Visit: No Status: Chronic Qualifiers: Hypertension type: essential hypertension (5) Hypothyroidism Current Visit: Yes Status: Acute - Plan Plan: Place patient under observation under my care Hydrate with IV NS Empiric IV ciprofloxacin and Flagyl Follow cultures Hold home antihypertensives due to borderline low BP. Resume other home medications DVT prophylaxis: Lovenox Advanced directive: Full code Disposition: Home - Advance Directives Does patient have a Living Will: No Does patient have a Durable POA for Healthcare: No
[2024-11-25] MEDS ORDERED: NA CHLORIDE 0.9% 1,000 ML ONE (19:45)
[2024-11-25 21:05] VITALS: BMI 18.0
[2024-11-25] MEDS: CIPROFLOXACIN 400mg IV 400 MG/200 ML BAG IV SCH (22:19)
[2024-11-25 22:30] VITALS: O2SAT 100
[2024-11-26] MEDS: METRONIDAZOLE 500mg IVPB 500 MG/100 ML BAG IV SCH (01:00)
[2024-11-26 05:11] LABS: Absolute Lymphocytes (CBC) 0.9 K/uL (0.7-4.9); Absolute Monocytes 0.7 K/uL (0.1-1.3); Absolute Neutrophil 11.9 K/uL (1.8-8.0); Basophils % 0.2 % (0-1.3); Eosinophils % 0.2 % (0-4.4); Hematocrit 36.9 % (39.6-49.0); Hemoglobin 12.7 g/dL (13.6-17.9); Lymphocytes % 6.5 % (15.3-44.8); MCHC 34.5 g/dL (32.0-36.0); MCV 92.9 fL (80-100); MPV 8.4 fL (7.6-11.3); Monocytes % 5.1 % (3.3-12.3); Platelets 140 thou/uL (152-406); RBC Red Blood Cell Count 3.97 M/uL (4.33-5.43); Red Cell Distribution Width 14.5 % (12.1-15.2)
[2024-11-26 05:35] LABS: Anion Gap 9.6 mEq/L (5.0-15.0); Magnesium 1.6 mg/dL (1.6-2.4); Phosphorus 3.1 mg/dL (2.5-4.9); Potassium 3.6 mEq/L (3.5-5.1)
[2024-11-26] MEDS: MAGNESIUM SULFATE 1 gm IVPB 1 GM/100 ML BAG IV ONE (06:36)
[2024-11-26] MEDS: ENOXAPARIN 40 MG/0.4 ML SQ SCH (08:34)
[2024-11-26] MEDS: POTASSIUM CL SA 10 MEQ TAB PO ONE (08:34)
--- NOTE | 2024-11-26 16:24 | P.DS ---
Admission Date: 11/25/24 Discharge Date: 11/26/24 Disposition: ROUTINE DISCHARGE Discharge Condition: FAIR Reason for Admission: Diarrhea and generalized weakness - Problems (1) Acute gastroenteritis Current Visit: Yes Status: Acute (2) History of bladder cancer Current Visit: Yes Status: Acute (3) H/O: CVA (cerebrovascular accident) Onset Date: 04/02/17 Current Visit: No Status: Chronic (4) HTN (hypertension) Onset Date: 04/02/17 Current Visit: No Status: Chronic Qualifiers: Hypertension type: essential hypertension (5) Hypothyroidism Current Visit: Yes Status: Acute Brief History of Present Illness: 89-year-old gentleman with a history of bladder cancer receiving bladder infusion chemotherapy once a month presented to the emergency department with a complaint of diarrhea of onset this morning. Patient reports he had constipation for a few days and so he took a tablet of senna followed by 2 cups of coffee. He then developed diarrhea and weakness. Family noted patient having rigors so they brought him to the emergency department. Evaluation in the emergency department revealed borderline low BP, no fever and no sepsis. No leukocytosis. CT abdomen pelvis was unremarkable except incidental findings of atherosclerotic diseases, small bilateral pleural effusion, moderate prostatomegaly, TURP defect, remote L5 compression fracture and small renal lesions. Blood cultures taken. Given patient borderline low blood pressure, rigors and diarrhea patient was hospitalized for further management. Hospital Course: Patient was placed on observation on the medical floor and hydrated with IV NS. His home antihypertensive lisinopril was held during the hospital stay. Patient's systolic blood pressure low normal. Blood cultures did not show any growth. He was treated briefly with IV ciprofloxacin and Flagyl Patient was asymptomatic during the hospital stay. Diarrhea resolved. Fever CT abdomen pelvis does not show any acute pathology. Patient with stable vitals. He is deemed stable for discharge. Lisinopril has been discontinued due to low normal BP. Vital Signs/Physical Exam: Temp Pulse Resp BP Pulse Ox 97.3 F 57 15 117/61 97 11/26/24 12:00 11/26/24 12:00 11/26/24 12:00 11/26/24 12:00 11/26/24 12:00 General: Alert, In no apparent distress, Oriented x3 HEENT: Mucous membr. moist/pink Neck: JVD not distended Respiratory: Clear to auscultation bilaterally, Normal air movement Cardiovascular: No edema, Regular rate/rhythm, Normal S1 S2 Gastrointestinal: Normal bowel sounds, Soft and benign, Non-distended, No tenderness Musculoskeletal: No swelling Integumentary: No rashes, No cyanosis Neurological: Normal speech, Normal strength at 5/5 x4 extr Laboratory Data at Discharge: WBC 13.60 thou/uL (4.3-10.9) H 11/26/24 04:36 Hgb 12.7 g/dL (13.6-17.9) L D 11/26/24 04:36 Hct 36.9 % (39.6-49.0) L 11/26/24 04:36 Plt Count 140 thou/uL (152-406) L 11/26/24 04:36 PT 11.2 SECONDS (10-13.0) 11/25/24 14:12 INR 0.98 11/25/24 14:12 APTT 28.3 SECONDS (27.2-37.4) 11/25/24 14:12 Sodium 138 mEq/L (136-145) 11/26/24 04:32 Potassium 3.6 mEq/L (3.5-5.1) 11/26/24 04:32 BUN 18 mg/dL (7-18) 11/26/24 04:32 Creatinine 1.05 mg/dL (0.70-1.30) 11/26/24 04:32 Glucose 96 mg/dL (74-106) 11/26/24 04:32 Phosphorus 3.1 mg/dL (2.5-4.9) 11/26/24 04:32 Magnesium 1.6 mg/dL (1.6-2.4) 11/26/24 04:32 Total Bilirubin 1.0 mg/dL (0.2-1.0) 11/25/24 14:12 AST 29 U/L (15-37) 11/25/24 14:12 ALT 32 U/L (16-61) 11/25/24 14:12 Alkaline Phosphatase 80 U/L (45-117) 11/25/24 14:12 Lipase 35 U/L (13-75) 11/25/24 14:12 Home Medications: Atorvastatin Calcium 20 mg PO DAILY 11/03/23 Levothyroxine Sodium 25 mcg PO DAILY 11/03/23 Multivit-Min/FA/Lycopen/Lutein [Centrum Silver Tablet] 1 tab PO DAILY 11/03/23 Diet: AHA Activity: Ad bernardo Followup: Gilbert Li MD [Primary Care Provider] - 1-2 Weeks Time spent managing pt's care (in minutes): 26
[2024-11-26 17:25] VITALS: BP 149/65; TEMP 98.3
== END 2024-11-26 17:33 | disposition home or self-care (01) ==
LOC: ER 13:43 → ERHOLD 17:56 → 2ND 21:13
PROVIDERS: ADMIT Internal Medicine; ATTEND Internal Medicine
DX: K52.9 Noninfective gastroenteritis and colitis, unspecified (principal); R19.7 Diarrhea, unspecified; R53.1 Weakness; I10 Essential (primary) hypertension; E03.9 Hypothyroidism, unspecified; Z86.73 Personal history of transient ischemic attack (TIA), and cerebral infarction without residual deficits; Z85.51 Personal history of malignant neoplasm of bladder
CPT/HCPCS: 96365; 96361; 87040 ×2; 85025 ×2; 80048; 36415; 83735; 84100; 85610; 83605; 85730; 83690; 80053; 74177; 99285; Q9967; J3475; J2543; J1650; J0744 ×2; J7050; J7040; J7030 ×2; G0378 ×4; 93005

== ENCOUNTER 2024-12-05 07:21 | Day surgery (SDC) | payer OTHER ==
[2024-12-05] MEDS: OXYBUTYNIN ER 5 MG TAB PO ONE (07:30)
[2024-12-05 08:02] LABS: Specific Gravity 1.017 (1.005-1.030); Sqamous Epithelial <5 /HPF (None Seen); Urine Bacteria None Seen /HPF (<20); Urine Bilirubin NEGATIVE (Negative); Urine Blood Negative (Negative); Urine Clarity Turbid (Clear); Urine Color Yellow (Yellow); Urine Culture Reflex Order REFLEXED; Urine Glucose NEGATIVE (Negative); Urine Ketones NEGATIVE (Negative); Urine Microscopic Reflex YN ORDER UMIC; Urine Mucus Slight /HPF (None Seen); Urine Nitrite NEGATIVE (Negative); Urine Protein NEGATIVE (Negative); Urine Urobilinogen Normal (Normal); Urine WBC 20-50 /HPF (<5); Urine WBC Clump Rare /HPF (None Seen)
[2024-12-05] MEDS: DIAZEPAM 5 MG TABLET ONE (08:10)
[2024-12-05] MEDS: LIDOCAINE JELLY 2% 5 ML SYRINGE TOP ONE (08:16)
[2024-12-05 09:10] VITALS: BP 129/66; TEMP 98.1; O2SAT 100
[2024-12-05 09:11] VITALS: BMI 18.4
--- NOTE | 2024-12-05 17:19 | P.PN ---
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 He underwent restaging TURBT 12/21/2023 without residual disease noted. Unfortunately, because of shortage of availability of BCG, we were unable to offer a complete induction course. As a result, he was instead given the alternative sequential chemotherapy intravesically with gemcitabine docetaxel. He has responded nicely with no evidence of disease on follow-up cystoscopy. 07/17/24 CTU IMPRESSION: Exophytic bladder mass seen on the prior CT is no longer visualized. Possible postoperative changes of partial prostate resection at the bladder outlet. Stable 7 mm nonobstructing right superior renal pole calculus. No acute or other significant abnormalities seen in the abdomen or pelvis. Other stable findings as above. Procedure note: He was consented before being placed supine on the procedure table. He had previously left a urine which was sent for analysis and unremarkable. He was given a dose of oxybutynin 10 mg prior to the urine result returning, and once deemed appropriate to proceed with the chemotherapy, he was given a dose of Valium 5 mg to encourage improved ability to maintain storage of the chemotherapeutic agents. A 16 Stateless urethral Roe catheter was then placed into his bladder and her bladder was decompressed of clear yellow urine. I then applied towels around his genitalia and around the catheter to provide absorbency in the event of any spillage, and the catheter was brought through a hiatus in a fluid impermeable drape which was used to cover the patient's face along with the face shield as I retrograde instilled 1 g of gemcitabine and 27.5 cc normal saline into her bladder. The gemcitabine was allowed to remain intravesical for 90 minutes before it was then evacuated into an associated leg bag. I then returned and instilled 37.5 mg of docetaxel intravesically via the catheter before clamping the catheter and allowing that to remain intravesical for 2 hours / 120 minutes. He tolerated it for the entire installation timeframe desired. The chemotherapy was evacuated into the attached leg bag, and the catheter removed. He was then discharged from the day surgery area in good condition. Complications: None noted Discharge disposition: Follow-up for cystoscopy as scheduled. Continue monthly maintenance [place]-Doce intravesical chemotherapy as tolerated, or until he is no longer willing to continue with the treatments, for a total of 2 years, until January 2026.
== END 2024-12-05 14:25 | disposition home or self-care (01) ==
LOC: DS 07:21
PROVIDERS: ATTEND Urology
PROC: 3E0K705 Introduction of Other Antineoplastic into Genitourinary Tract, Via Natural or Artificial Opening (ICD-10-PCS; principal; 2024-12-05)
DX: C67.9 Malignant neoplasm of bladder, unspecified (principal)
CPT/HCPCS: 87088; 81001; 87086; 51720 ×2; J9171; J9201

== ENCOUNTER 2025-02-23 11:07 | Emergency (ER) | payer OTHER ==
--- OUTSIDE RECORDS SUMMARY | 2025-02-23 11:12 | XMS REPORT | Continuity of Care Document ---
Author Name Unknown Address [address] [facility] [place] [address] [facility] [address] [facility] [place] [address] Care Team Providers Care Unix Systems Administrator Name Role Phone Gilbert Li Primary Care Physician [phone] Rylye Li Attending Clinician Unavailable Carmenza Pack MD Attending Clinician [phone] CARMENZA PACK Attending Clinician Unavail able [facility] Attending Clinician Unavailable Jean-Pierre Ma MD Attending Clinician + Gila Ortiz MA Attending Clinician Jesus Heaton MD, Riaz Tena Attending Clinician [phone] Marianne Alcantara MD Attending Clinician + [phone] MARIANNE ALCANTARA Attending Clinician Vaughn flynn System, Provider Not In Attending Clinician Unav ailable Selbst Luis A LESLIE Attending Clinician + [phone] LUIS A CHAVEZ Attending Clinician Unavail able Nurse, [facility] Attending Clinician Unavailable ObLaureen Lennon MD Attending Clinician LAUREEN VENEGAS Attending Clinician Unavailab le Vaccine, [facility] Attending Clinician Unavailable Dillon Pina MD Attending Clinician DILLON PINA Attending Clinician Unavailable Doctor Unassigned, [place] Attending Clinician U navailable Payers Payer Name Policy Type Policy Number Effective Date Expirati on Date Source MEDICARE PART A AND B Medicare [id number] 2024 00:00:00 Problems Condition Name Condition Details Condition Category Status Onset Date Resolution Date Last Treatment Date Treating Clinician Comments Source Syncope Syncope Disease Active 02-16 00:00: 00 Gerald Tran 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 Disease Active 01-16 00:00: 00 Gerald Tran Bladder tumor Bladder tumor Disease Active 01-05 00:00: 00 Gerald Tran 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 Disease Active 01-05 00:00: 00 Gerald Tran Elevated PSA Elevated PSA Disease Active 01-05 00:00: 00 Gerald Tran Gastric ulcer Gastric ulcer Disease Active 01-05 00:00: 00 Gerald Tran Gross hematuria Gross hematuria Disease Active 01-05 00:00: 00 Gerald Tran Hemorrhage of prostate bed Hemorrhage of prostate bed Disease Active 01-05 00:00: 00 Gerald Tran History of bladder cancer History of bladder cancer Disease Active 01-05 00:00: 00 Gerald Tran Hyperlipid emia Hyperlipid emia Disease Active 01-05 00:00: 00 Gerald Tran Hypothyroi dism Hypothyroi dism Disease Active 01-05 00:00: 00 Gerald Tran Lower urinary tract symptoms (LUTS) Lower urinary tract symptoms (LUTS) Disease Active 01-05 00:00: 00 Gerald Tran Right nephrolith iasis Right nephrolith iasis Disease Active 01-05 00:00: 00 Gerald Palomo Epic Cervical spondylosi s Cervical spondylosi s Disease Active 01-05 00:00: 00 Gerald Tran 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 Disease Active 01-05 00:00: 00 Gerald Tran H/O malignant neoplasm of head and neck H/O malignant neoplasm of head and neck Disease Active 01-05 00:00: 00 Gerald Palomo Epic Osteoporos is Osteoporos is Disease Active 11-09 00:00: 00 Gerald Tran GI bleed GI bleed Disease Active 04-02 00:00: 00 Gerald Tran H/O: CVA (cerebrova scular accident) H/O: CVA (cerebrova scular accident) Disease Active 04-02 00:00: 00 Gerald Tran Hiatal hernia with GERD and esophagiti s Hiatal hernia with GERD and esophagiti s Disease Active 04-02 00:00: 00 Gerald Tran HTN (hypertens ion) HTN (hypertens ion) Disease Active 04-02 00:00: 00 Gerald Tran Acute gastroente ritis Acute gastroente ritis Disease Active 2015-07 00:00: 00 Gerald Tran ISCHEMIC CVA ISCHEMIC CVA Active 12/15/2015 [facility] Diagnosis Active 12-14 00:00: 00 2016-01-06 13:48:00 Gerald Palomo Cancer of oropharynx (CMS/HCC) Cancer of oropharynx (CMS/HCC) Disease Active 09-18 00:00: 00 Gerald Tran Bladder cancer Bladder cancer Problem Common [facility] CVA CVA Active [facility] Diagnosis Active 2014-05-28 17:06:00 Gerald Palomo ILLNESS, UNSPECIFIE D ILLNESS, UNSPECIFIE D Active [facility] Diagnosis Active 2016-01-06 13:48:00 Gerald Palomo Carcinoma of bladder Carcinoma of bladder Problem Common [facility] Hearing aid, device (physical object) Hearing aid, device (physical object) Resolved Problem 12/20/2015 [facility] Problem Resolve d 2015-12-20 01:55:04 Gerald Palomo Allergies, Adverse Reactions, Alerts Allergy Name Allergy Type Status Severity Reaction(s) Onset Date Inactive Date Treating Clinician Comments Source Phenobar bital Propensi ty to adverse reaction s Active 02-07 00:00: 00 Memgonzalo Palomo Epic Predniso ne Propensi ty to adverse reaction s Active 10-31 00:00: 00 Other Reaction( s): Nausea/Vo miting Memoria timothy Palomo Epic phenobar bital phenobar bital Active Unknown [facility] PHENobar bital PHENobar bital Active Virioria timothy Palomo NO KNOWN ALLERGIE S Drug Class Active [facility] Social History Social Habit Start Date Stop Date Quantity Comments Source Gender identity 2023-10-02 23:43:59 Identifies as male gender (finding) [facility] Sex Assigned At [facility] Sexual orientation [facility] Alcoholic beverage intake 2025-02-16 00:00:00 2025-02-16 00:00:00 .29 /d [facility] History of Social function 2025-02-07 00:00:00 2025-02-07 00:00:00 [facility] Cigarettes smoked current (pack per day) - Reported 2025-01-05 00:00:00 2025-01-05 00:00:00 [facility] Cigarette pack-years 2025-01-05 00:00:00 2025-01-05 00:00:00 [facility] Tobacco use and exposure 2025-01-05 00:00:00 2025-01-05 00:00:[address]eless tobacco user [facility] Sex 2023-10-02 23:43:59 2023-10-02 23:43:59 Male (finding) [facility] Exposure to SARS-CoV-2 (event) 2022-08-01 00:00:00 2022-08-11 12:11:00 Not sure [facility] Social History 2015-12-15 21:40:12 2015-12-15 21:40:12 [facility] History of tobacco use 1955-07-12 00:00:00 1980-07-12 00:00:[address] [facility] Smoking Status Start Date Stop Date Source Tobacco smoking consumption unknown [facility] Epi c Ex-smoker 2025-01-05 00:00:00 2025-01-05 00:00:00 [facility] Social History [facility] Medications Ordered Medication Name Filled Medication Name Start Date Stop Date Current Medication? Ordering Clinician Indication Dosage Frequency Signature (SIG) Comments Components Source iohexol (OMNIPaque) 350 MG/ML injection 100 mL iohexol (OMNIPaque) 350 MG/ML injection 100 mL 02-07 08:27: 25 02-07 08:27 :00 No 100mL 100 mL, Intravenou s, Once in imaging, Starting on Wed02/07/25 at 0827, For 1 dose Gerald Palomo [facility] sodium chloride (NS) 0.9 % flush 10 mL sodium chloride (NS) 0.9 % flush 10 mL 02-07 06:11: 23 Yes 10mL [Order 1 Start] Name: Insert peripheral IV Signed Summary: Once, On Wed02/07/25 at 0612, For 1 occurrence [Order 1 End] [Order 2 Start] Name: Saline lock IV Signed Summary: Once, On Wed02/07/25 at 0612, For 1 occurrence [Order 2 End] [Order 3 Start] Name: sodium chloride (NS) 0.9 % flush 10 mL Signed Summary: 10 mL, Intravenou s, As needed, line care, Starting on Wed02/07/25 at 0611 [Order 3 End] Gerald Palomo [facility] levothyroxi ne (Synthroid, Levoxyl) 25 MCG tablet levothyroxi ne (Synthroid, Levoxyl) 25 MCG tablet 01-05 14:51: 04 Yes TAKE 1.5 TABLET BY MOUTH EVERY DAY IN THE MORNING ON EMPTY STOMACH Gerald Palomo [facility] lisinopril 5 MG tablet lisinopril 5 MG tablet 01-05 14:51: 04 Yes 1{tbl} QD Take 1 tablet by mouth 1 time each day. Gerald Palomo [facility] atorvastati n (Lipitor) 20 MG tablet atorvastati n (Lipitor) 20 MG tablet 01-05 14:51: 04 Yes 20mg QD Take 20 mg by mouth 1 time each day. Gerald Palomo Epic sulfamethox azole-trime thoprim (Bactrim DS) 800-160 MG per tablet sulfamethox azole-trime thoprim (Bactrim DS) 800-160 MG per tablet 01-05 00:00: 00 Yes 1{tbl} Q.5D Take 1 tablet by mouth in the morning and 1 tablet in the evening. Gerald Palomo Epic Lisinopril 12-16 14:00: 00 No Notes: (Same as: Prinivil Zestril) Gerald Palomo Plavix 12-16 14:00: 00 [...] 1 cap, PO, BID, 0 Refill(s) Gerald Palomo Centrum Silver Men's 12-14 22:43: 00 Yes 1 tab, PO, Daily, 0 Refill(s) Gerald Palomo Saline Flush 0.9% 12-14 20:25: 00 No Notes: (Same as: BD Posiflush) Gerald timothy Weed Acetaminoph en 12-14 20:25: 00 No Notes: Do not exceed 4 gm/day. (Same as: Tylenol) Gerald timothy Dewey Sodium Chloride 0.154 MEQ/ML Injectable Solution 12-14 20:25: 00 No 1,000 mL, Rate: 75 ml/hr, Infuse over: 13.3 hr, Route: IV, Dosing Weight 65.455 kg, Total Volume: 1,000, Start date: 12/15/15 15:25:00 CDT, Duration: 30 day, Stop date: 01/14/16 15:24:00 CDT Gerald Palomo BABY ASPIRIN PO BABY ASPIRIN PO 12-10 00:00: 00 Yes 1{tbl} QD Take 1 tablet by mouth 1 time each day. Gerald Palomo Epic Lipitor 2013-07 03:00: 00 No Notes: (Same As: Lipitor) Gerald Palomo heparin sodium, porcine 2500 UNT/ML Injectable Solution 2013-07 22:00: 00 No Notes: porcine heparin Gerald Palomo Ibuprofen 400 MG Oral Tablet 2013-07 15:16: 00 No Notes: (Same as: Motrin) "Do Not Crush" Give with food. Gerald Palomo Aspirin 81 MG Enteric Coated Tablet 2013-07 15:00: 00 No Notes: Do not crush or chew. (Same As: Ecotrin) Gerald Palomo Saline Flush 0.9% 2013-07 03:00: 00 No Notes: (Same as: BD Posiflush) Gerald Palomo Lipitor 2013-07 03:00: 00 No Notes: (Same As: Lipitor) Gerald Palomo Tylenol 2013-07 00:46: 00 No Notes: Do not exceed 4 gm/day. (Same as: Tylenol) Gerald Friedmanann Saline Flush 0.9% 2013-07 00:39: 00 No [...] be infused by Radiology Staff ONLY" Gerald Palomo atorvastati n (Lipitor) 10 MG tablet atorvastati n (Lipitor) 10 MG tablet 2013-07 00:00: 00 Yes 10mg 10 mg = 1 tab, PO, Bedtime, # 30 tab, 0 Refill(s) Gerald timothy Deweytammy Tran lisinopril 10 MG tablet lisinopril 10 MG tablet 2013-07 00:00: 00 Yes 10mg 10 mg = 1 tab, PO, Daily, # 30 tab, 0 Refill(s) Gerald timothy Weedtammy Tran GARLIC PO GARLIC PO 2013-07 00:00: 00 Yes 1 tab, PO, QAM, 0 Refill(s) Gerald Friedmanann [place] Immunizations Ordered Immunization Name Filled Immunization Name Date Status Comments Source SARS-COV-2 COVID-19 VACCINE 12 YRS+, BIVALENT 0.5ML, IM, (MODERNA BOOSTER) 2022-08-11 00:00:00 [facility] SARS-COV-2 COVID-19 MODERNA 0.25ML BOOSTER VACCINE 2022-01-27 00:00:00 Completed [facility] SARS-COV-2 COVID-19 MODERNA 0.25ML BOOSTER VACCINE 2022-01-27 00:00:00 Completed [facility] SARS-COV-2 COVID-19 MODERNA 0.25ML BOOSTER VACCINE 2021-05-28 00:00:00 Completed [facility] SARS-COV-2 COVID-19 MODERNA 0.25ML BOOSTER VACCINE 2021-05-28 00:00:00 Completed [facility] SARS-COV-2 COVID-19 MODERNA 12+ YRS VACCINE 2020-09-04 00:00:00 Completed [facility] SARS-COV-2 COVID-19 MODERNA 12+ YRS VACCINE 2020-09-04 00:00:00 Completed [facility] SARS-COV-2 COVID-19 MODERNA 12+ YRS VACCINE 2020-08-07 00:00:00 Completed [facility] SARS-COV-2 COVID-19 MODERNA 12+ YRS VACCINE 2020-08-07 00:00:00 Completed [facility] SARS-COV-2 COVID-19 MODERNA 12+ YRS VACCINE Unknown Completed [facility] SARS-COV-2 COVID-19 MODERNA 0.25ML BOOSTER VACCINE Unknown Completed [facility] SARS-COV-2 COVID-19 VACCINE 12 YRS+, BIVALENT 0.5ML, IM, (MODERNA-BLUE TOP) Unknown Completed [facility] SARS-COV-2 COVID 19 GOLDIE SUCROSE VACCINE 12+, [id number], 0.3 ML (30 MCG), IM PFIZER (SANCHEZ TOP) Unknown Completed [facility] Vital Signs Vital Name Observation Time Observation Value Comments Phoebe ramirez Systolic blood pressure 2025-02-16 10:44:00 156 mm[Hg] [facility] Diastolic blood pressure 2025-02-16 10:44:00 78 mm[Hg] [facility] Epic Heart rate 2025-02-16 10:44:00 55 /min Memor ial Weed Epic Body temperature 2025-02-16 10:44:[address] [facility] Respiratory rate 2025-02-16 10:44:00 16 /min [facility] Body height 2025-02-16 10:44:00 160 [facility] Body weight 2025-02-16 10:44:00 54.885 kg Danilo rial Weed Epic BMI 2025-02-16 10:44:00 21.43 kg/m2 Danilo rial Weed Epic Oxygen saturation in Arterial blood by Pulse oximetry 2025-02-16 10:44:00 95 /min [facility] Systolic blood pressure 2025-02-16 10:44:00 156 mm[Hg] [facility] Diastolic blood pressure 2025-02-16 10:44:00 78 mm[Hg] [facility] Epic Heart rate 2025-02-16 10:44:00 55 /min Memor ial Weed Epic Body temperature 2025-02-16 10:44:00 36.89 Sandra [facility] Epic Respiratory rate 2025-02-16 10:44:00 16 /min [facility] Body height 2025-02-16 10:44:00 160 cm Danilo rial Weed Epic Body weight 2025-02-16 10:44:00 54.885 kg Danilo rial [facility] Epic BMI 2025-02-16 10:44:00 21.43 kg/m2 Danilo rial [facility]wey Epic Oxygen saturation in Arterial blood by Pulse oximetry 2025-02-16 10:44:00 95 /min [facility] Systolic blood pressure 2025-02-07 21:00:00 181 mm[Hg] Aranza Valdes [facility] Diastolic blood pressure 2025-02-07 21:00:00 91 mm[Hg] Aranza Valdes [facility] Epic Heart rate 2025-02-07 21:00:00 65 /min Memor ial Weed Epic Respiratory rate 2025-02-07 21:00:00 18 /min [facility] Oxygen saturation in Arterial blood by Pulse oximetry 2025-02-07 21:00:00 95 /min [facility] Body temperature 2025-02-07 05:28:00 [facility] Body height 2025-02-07 05:28:00 160 cm Danilo joyce Friedmanann Epic Body weight 2025-02-07 05:28:00 56 kg Danilo joyce Weed Epic BMI 2025-02-07 05:28:00 21.87 kg/m2 Danilo rial [facility] Epic Systolic blood pressure 2025-02-07 21:00:00 181 mm[Hg] Aranza Valdes [facility] Diastolic blood pressure 2025-02-07 21:00:00 91 mm[Hg] [facility] Epic Heart rate 2025-02-07 21:00:00 65 /min Memor ial Weed Epic Respiratory rate 2025-02-07 21:00:00 18 /min [facility] Epic Oxygen saturation in Arterial blood by Pulse oximetry 2025-02-07 21:00:00 95 /min [facility] Body temperature 2025-02-07 05:28:00 [facility].56 [facility] Body height 2025-02-07 05:28:00 160 cm Danilo rial Weed Epic Body weight 2025-02-07 05:28:00 56 kg Danilo riatimothy Dewey Epic BMI 2025-02-07 05:28:00 21.87 kg/m2 Danilo rial Weed Epic Systolic blood pressure 2025-01-16 13:33:00 143 mm[Hg] [facility] Epic Diastolic blood pressure 2025-01-16 13:33:00 68 mm[Hg] [facility] Epic Heart rate 2025-01-16 13:33:00 56 /min [facility] Epic Body temperature 2025-01-16 13:33:00 37 Sandra [facility] Epic Respiratory rate 2025-01-16 13:33:00 16 /min [facility] Epic Oxygen saturation in Arterial blood by Pulse oximetry 2025-01-16 13:33:00 97 /min [facility] Systolic blood pressure 2025-01-16 13:33:00 143 mm[Hg] Aranza brooke [facility] Diastolic blood pressure 2025-01-16 13:33:00 68 mm[Hg] Aranza brooke [facility] Heart rate 2025-01-16 13:33:00 56 /min [facility] Body temperature 2025-01-16 13:33:[address] [facility] Respiratory rate 2025-01-16 13:33:00 16 /min [facility] Oxygen saturation in Arterial blood by Pulse oximetry 2025-01-16 13:33:00 97 /min [facility] height 2024-11-23 13:45:00 70 [in_i] Commo n [facility] weight 2024-11-23 13:45:00 125 [lb_av] Comm on [facility] temperature 2024-11-23 13:45:00 97.9 [degF] Com [facility] bmi 2024-11-23 13:45:00 17.93 kg/m2 Comm on [facility] oximetry 2024-11-23 13:45:00 97 % Commo n [facility] respiratory rate 2024-11-23 13:45:00 17 /min [facility] blood pressure systolic 2024-11-23 13:45:00 172 mm[Hg] [facility] blood pressure diastolic 2024-11-23 13:45:00 74 mm[Hg] [facility] height 2024-08-28 14:15:00 70 [in_i] Commo n [facility] weight 2024-08-28 14:15:00 130 [lb_av] Comm on [facility] temperature 2024-08-28 14:15:00 97.9 [degF] Com [facility] bmi 2024-08-28 14:15:00 18.65 kg/m2 Comm on [facility] oximetry 2024-08-28 14:15:00 96 % Commo n [facility] respiratory rate 2024-08-28 14:15:00 18 /min [facility] blood pressure systolic 2024-08-28 14:15:00 132 mm[Hg] [facility] blood pressure diastolic 2024-08-28 14:15:00 68 mm[Hg] [facility] height 2024-04-12 09:45:00 70 [in_i] Commo n [facility] weight 2024-04-12 09:45:00 125 [lb_av] Comm on [facility] temperature 2024-04-12 09:45:00 97.6 [degF] Com [facility] bmi 2024-04-12 09:45:00 17.93 kg/m2 Comm on [facility] oximetry 2024-04-12 09:45:00 96 % Commo n [facility] respiratory rate 2024-04-12 09:45:00 18 /min [facility] blood pressure systolic 2024-04-12 09:45:00 126 mm[Hg] [facility] blood pressure diastolic 2024-04-12 09:45:00 62 mm[Hg] [facility] height 2024-01-05 13:30:00 70 [in_i] Commo n [facility] weight 2024-01-05 13:30:00 127 [lb_av] Comm on [facility] temperature 2024-01-05 13:30:00 97.7 [degF] Com [facility] bmi 2024-01-05 13:30:00 18.22 kg/m2 Comm on [facility] oximetry 2024-01-05 13:30:00 96 % Commo n [facility] respiratory rate 2024-01-05 13:30:00 18 /min [facility] blood pressure systolic 2024-01-05 13:30:00 126 mm[Hg] Common [facility] blood pressure diastolic 2024-01-05 13:30:00 68 mm[Hg] [facility] height 2023-12-02 11:15:00 70 [in_i] Commo n [facility] weight 2023-12-02 11:15:00 127.4 [lb_av] Co mmon [facility] temperature 2023-12-02 11:15:00 99.1 [degF] Com mon [facility] bmi 2023-12-02 11:15:00 18.28 kg/m2 Comm on [facility] oximetry 2023-12-02 11:15:00 98 % Commo n [facility] respiratory rate 2023-12-02 11:15:00 18 /min [facility] blood pressure systolic 2023-12-02 11:15:00 124 mm[Hg] [facility] blood pressure diastolic 2023-12-02 11:15:00 64 mm[Hg] [facility] height 2023-11-22 09:15:00 70 [in_i] Commo n [facility] weight 2023-11-22 09:15:00 131 [lb_av] Comm on [facility] temperature 2023-11-22 09:15:00 98.6 [degF] Com mon [facility] bmi 2023-11-22 09:15:00 18.79 kg/m2 Comm on [facility] oximetry 2023-11-22 09:15:00 99 % Commo n [facility] respiratory rate 2023-11-22 09:15:00 18 /min [facility] blood pressure systolic 2023-11-22 09:15:00 140 mm[Hg] [facility] blood pressure diastolic 2023-11-22 09:15:00 68 mm[Hg] [facility] height 2023-10-29 11:00:00 70 [in_i] Commo n [facility] weight 2023-10-29 11:00:00 131 [lb_av] Comm on [facility] temperature 2023-10-29 11:00:00 98 [degF] Comm on [facility] bmi 2023-10-29 11:00:00 18.79 kg/m2 Comm on [facility] oximetry 2023-10-29 11:00:00 96 % Commo n [facility] respiratory rate 2023-10-29 11:00:00 18 /min [facility] blood pressure systolic 2023-10-29 11:00:00 146 mm[Hg] [facility] blood pressure diastolic 2023-10-29 11:00:00 88 mm[Hg] [facility] height 2023-10-07 10:15:00 70 [in_i] Commo n [facility] weight 2023-10-07 10:15:00 129.8 [lb_av] Co mmon [facility] bmi 2023-10-07 10:15:00 18.62 kg/m2 Comm on [facility] oximetry 2023-10-07 10:15:00 99 % Commo n [facility] respiratory rate 2023-10-07 10:15:00 18 /min [facility] blood pressure systolic 2023-10-07 10:15:00 140 mm[Hg] [facility] blood pressure diastolic 2023-10-07 10:15:00 67 mm[Hg] [facility] Body temperature 2023-05-31 16:48:00 36.5 Sandra [facility] Systolic (mm Hg) 2015-12-17 16:25:00 [facility] Diastolic (mm Hg) 2015-12-17 16:25:00 [facility] Respitory Rate 2015-12-17 16:25:00 [facility] Heart Rate 2015-12-17 16:25:00 [facility] Temperature Oral (F) 2015-12-17 16:25:00 97.3 F [facility] Systolic (mm Hg) 2015-12-17 12:45:00 [facility] Diastolic (mm Hg) 2015-12-17 12:45:00 [facility] Respitory Rate 2015-12-17 12:45:00 [facility] Temperature Oral (F) 2015-12-17 12:45:00 97.0 F [facility] Heart Rate 2015-12-17 12:45:00 [facility] Systolic (mm Hg) 2015-12-17 09:10:00 [facility] Diastolic (mm Hg) 2015-12-17 09:10:00 [facility] Heart Rate 2015-12-17 09:10:00 [facility] Respitory Rate 2015-12-17 09:10:00 [facility] Temperature Oral (F) 2015-12-17 09:10:00 97.7 F [facility] Height 2015-12-15 21:36:00 177.8 cm [facility] Weight 2015-12-15 21:36:00 [facility] BMI Calculated 2015-12-15 21:36:00 [facility] Respitory Rate 2014-05-28 18:00:00 [facility] Systolic (mm Hg) 2014-05-28 18:00:00 [facility] Heart Rate 2014-05-28 18:00:00 [facility] Diastolic (mm Hg) 2014-05-28 18:00:00 [facility] Temperature Oral (F) 2014-05-28 18:00:00 98.7 F [facility] Systolic (mm Hg) 2014-05-28 14:00:00 [facility] Diastolic (mm Hg) 2014-05-28 14:00:00 [facility] Temperature Oral (F) 2014-05-28 14:00:00 98.1 F [facility] Heart Rate 2014-05-28 14:00:00 [facility] Respitory Rate 2014-05-28 14:00:00 [facility] Systolic (mm Hg) 2014-05-28 10:33:00 [facility] Heart Rate 2014-05-28 10:33:00 [facility] Diastolic (mm Hg) 2014-05-28 10:33:00 [facility] Temperature Oral (F) 2014-05-28 10:33:00 97.5 F [facility] Respitory Rate 2014-05-28 10:33:00 [facility] Weight 2014-05-26 19:56:00 [facility] We[facility] BMI Calculated 2014-05-26 19:56:00 [facility] Height 2014-05-26 19:56:00 177.8 cm [facility] Procedures Procedure Date / Time Performed Performing Clinician Source EEG AWAKE AND SLEEP 2025-02-14 18:08:[address] [facility] EEG awake or drowsy routine 2025-02-08 00:[facility] [facility] X[facility] CERVICAL SPINE 2-3 VIEWS 2025-02-07 16:36:[address] [facility] CT CHEST ABDOMEN PELVIS W IV CONTRAST 2025-02-07 08:27:[address] [facility] XR SHOULDER 2+ VIEWS LEFT 2025-02-07 06:39:22 Jefferson Stover R[facility] Epic XR HUMERUS 2 VIEWS LEFT 2025-02-07 06:35:00 Jean-Pierre coelho Jefferson Hedrick [facility] BASIC METABOLIC PANEL 2025-02-07 06:34:[address] [facility] HEPATIC FUNCTION PANEL 2025-02-07 06:34:[address] [facility] ETHANOL LEVEL 2025-02-07 06:34:[address] [facility] BLOOD GAS, VENOUS 2025-02-07 06:34:[address] [facility] TYPE AND SCREEN 2025-02-07 06:34:[address] [facility] COMPLETE BLOOD COUNT W/DIFF AND PLATELET 2025-02-07 06:34:[address] [facility] THROMBOELASTOGRAPH RAPID 2025-02-07 06:34:00 Jefferson Villatoro R[facility] Epic LACTIC ACID WITH 2 HOUR REFLEX 2025-02-07 06:34:[address] [facility] COMPLETE BLOOD COUNT 2025-02-07 06:34:00 Tima [facility] AUTOMATED DIFFERENTIAL 2025-02-07 06:34:00 Jefferson Wilkins [facility] Drug Screen Urine (8 Drugs) 2025-02-07 00:00:00 [facility] MRI cervical spine wo IV contrast 2025-01-16 00:00:00 [facility] PVR 2024-08-28 00:00:00 Common S pirit [facility] PVR 2023-12-02 00:00:00 Common S pirit [facility] PVR 2023-10-07 00:00:00 [facility] SARS-COV-2 COVID 19 GOLDIE SUCROSE VACCINE 12+, , 0.3 ML (30 MCG), IM PFIZER (SANCHEZ TOP) 2023-05-31 16:40:57 Dillon [facility] SARS-COV-2 COVID-19 VACCINE 12 YRS+, BIVALENT 0.5ML, IM (MODERNA BOOSTER) 2022-08-11 18:40:12 Doctor Unassigned, [facility] ASSIGNMENT OF BENEFITS 2022-08-11 18:13:29 Docto r Unassigned, [facility] Cataract surgery [facility] Procedure<sup>1</sup> Dru Wells Prostate manipulation Dru Wells Small bowel resection Dru Wells ECG 12 lead [facility] Plan of Care Planned Activity Planned Date Details Comments Source Encounters Start Date/Time End Date/Time Encounter Type Admission Type Attending Clinicians Care Facility Care Department Encounter ID Source 2024-03-16 10:37:00 Outpatient Guillermo Ryley [facility] [id number] [facility] 2023-10-07 09:27:00 Outpatient Guillermo Ryley [facility] [id number] [facility] 2025-02-16 10:45:00 2025-02-16 11:17:39 Office Visit Carmenza Pack 1.2.840.114 350.1.13.70 8.2.7.2.686 [id number] [facility] 2025-02-16 10:16:38 2025-02-16 11:17:39 Outpatient CARMENZA PACK [facility] [id number] [facility] 2025-02-14 10:00:00 2025-02-14 11:09:55 Procedure Visit Eeg[facility], [facility] 1.2.840.114 350.1.13.70 8.2.7.2.686 [id number] [facility] 2025-02-14 09:53:24 2025-02-14 11:09:55 Outpatient M[facility] [id number] [facility] 2025-02-09 00:00:00 2025-02-12 09:07:31 Telephone [place] [id number] 1.2.840.114 350.1.13.70 8.2.7.2.686 [id number] [facility] 2025-01-30 00:00:00 2025-02-08 15:36:54 Telephone Gila Ortiz Kasandra [facility] 1.2.840.114 350.1.13.70 8.2.7.2.686 [id number] [facility] 2025-02-08 00:00:00 2025-02-08 13:50:59 Orders Only Gila Ortiz Kasandra [facility] 1.2.840.114 350.1.13.70 8.2.7.2.686 [id number] [facility] 2025-02-08 07:56:55 2025-02-08 07:56:55 Outpatient M[facility] [id number] [facility] 2025-02-08 07:47:44 2025-02-08 07:47:44 Outpatient [facility] [id number] [facility] 2025-02-07 06:25:43 2025-02-07 23:59:00 Outpatient M[facility]OUT [facility] [id number] [facility] 2025-02-07 06:23:18 2025-02-07 23:59:00 Outpatient M[facility]OUT [facility] [id number] [facility] 2025-02-07 05:34:00 2025-02-07 22:37:00 [facility] 1.2.840.114 350.1.13.70 8.2.7.2.686 [id number] [facility] 2025-02-07 05:34:00 2025-02-07 22:37:00 Emergency Tra[facility] Center [facility]INTONMARIANNE W[facility]ERS [facility] General Medicine [id number] [facility] 2025-02-07 00:00:00 2025-02-07 10:43:44 Telephone [facility] 91 1.2.840.114 350.1.13.70 8.2.7.2.686 [id number] [facility] 2025-02-07 00:00:00 2025-02-07 06:23:18 Orders Only System, Provider Not In [facility] 1.2.840.114 350.1.13.70 8.2.7.2.686 [id number] [facility] 2025-02-02 00:00:00 2025-02-05 12:52:08 Telephone [facility] [id number] 1.2.840.114 350.1.13.70 8.2.7.2.686 [id number] [facility] 2025-02-02 00:00:00 2025-02-05 08:08:33 Telephone [facility] 915 1.2.840.114 350.1.13.70 8.2.7.2.686 [id number] Gerald Palomo [facility] 2025-01-31 14:10:00 2025-01-31 14:28:25 Office Visit Luis A [facility] 1.2.840.114 350.1.13.70 8.2.7.2.686 [id number] Gerald aguirre [facility] 2025-01-31 13:50:17 2025-01-31 14:28:25 Outpatient Elective KARINABALJITLUIS A Omer [facility] [id number] [facility] 2025-01-29 00:00:00 2025-01-29 00:00:00 (TEL) [facility] [id number] [facility] 2025-01-18 08:15:27 2025-01-18 11:18:33 Outpatient Elective M[facility] [id number] [facility] 2025-01-16 13:30:00 2025-01-16 14:07:13 Office Visit Tobi Carmenzastan Barrios 1.2.840.114 350.1.13.70 8.2.7.2.686 [id number] Gerald aguirre [facility] 2025-01-16 13:24:57 2025-01-16 14:07:13 Outpatient CARMENZA PACK [facility] [id number] [facility] 2025-01-15 00:00:00 2025-01-15 17:26:54 Telephone TobiCarmenza Sophie 1.2.840.114 350.1.13.70 8.2.7.2.686 [id number] Gerald aguirre [facility] 2025-01-05 14:34:03 2025-01-05 15:28:20 Outpatient CARMENZA PACK [facility] [id number] [facility] 2025-01-05 00:00:00 2025-01-05 00:00:00 (TEL) [facility] [id number] [facility] 2025-01-03 12:39:12 2025-01-03 14:11:10 Outpatient Elective SELBST, LUIS A [facility] [id number] [facility] 2024-12-06 12:41:37 2024-12-06 13:39:01 Outpatient Elective SELBST, LUIS A MHKALI [facility] [id number] [facility] 2024-12-06 12:40:00 2024-12-06 12:50:00 Office Visit Selbst, Luis A Pimentel [facility] 1.2.840.114 350.1.13.70 8.2.7.2.686 [id number] Gerald Palomo [facility] 2024-11-23 00:00:00 2024-11-23 00:00:00 OFFICE VISIT ESTAB PT LEVEL 3 STLMLC STLMLC [id number] [facility] 2024-11-08 13:30:00 2024-11-08 14:12:31 Office Visit Selbst, Luis A [facility] 1.2.840.114 350.1.13.70 8.2.7.2.686 [id number] Gerald Palomo [facility] 2024-11-08 13:25:42 2024-11-08 14:12:31 Outpatient Elective SELBST, LUIS A VIVIENNE [facility] [id number] [facility] 2024-10-16 11:33:37 2024-10-16 12:33:25 Outpatient Elective SELBST, LUIS A MHNallelyOUT MHEOUT [id number] [facility] 2024-10-16 11:30:00 2024-10-16 12:33:25 Office Visit Selbst, Luis A [facility] 1.2.840.114 350.1.13.70 8.2.7.2.686 [id number] [facility]24-[facility]-09 10:50:00 2024-10-09 11:09:24 Office Visit KarinasallyLuis A [facility] 1.2.840.114 350.1.13.70 8.2.7.2.686 [id number] Gerald Palomo [facility] 2024-10-09 10:46:38 2024-10-09 11:09:24 Outpatient Elective SELBSTLUIS A [facility]HEOUT M[facility]OUT [id number] [facility] 2024-09-25 12:50:07 2024-09-25 13:33:30 Outpatient Elective SELBSTLUIS A MHEOUT M[facility]OUT [id number] EOUT 2024-09-25 12:50:00 2024-09-25 13:00:00 Consult ScottLuis A [facility] 1.2.840.114 350.1.13.70 8.2.7.2.686 [id number] Gerald aguirre [facility] 2024-08-28 00:00:00 2024-08-28 00:00:00 OFFICE VISIT ESTAB PT LEVEL 3 STLMLC STLMLC [id number] [facility] 2024-04-12 00:00:00 2024-04-12 00:00:00 OFFICE VISIT ESTAB PT LEVEL 3 STLMLC STLMLC [id number] [facility] 2024-02-25 00:00:00 2024-02-25 00:00:00 (TEL) STLMLC STLMLC [id number] [facility] 2024-01-05 00:00:00 2024-01-05 00:00:00 OFFICE VISIT ESTAB PT LEVEL 4 STLMLC STLMLC [id number] [facility] 2023-12-02 00:00:00 2023-12-02 00:00:00 OFFICE VISIT ESTAB PT LEVEL 4 STLMLC STLMLC [id number] [facility] 2023-11-22 00:00:00 2023-11-22 00:00:00 ([place]) Nurse Visit STLMLC STLMLC [id number] [facility] 2023-11-14 00:00:00 2023-11-14 00:00:00 (TEL) STLMLC STLMLC [id number] [facility] 2023-10-29 00:00:00 2023-10-29 00:00:00 OFFICE VISIT ESTAB PT LEVEL 4 STLMLC STLMLC [id number] [facility] 2023-10-07 00:00:00 2023-10-07 00:00:00 OFFICE VISIT NEW PT LEVEL 3 STLMLC STLMLC [id number] [facility] 2023-05-31 10:00:00 2023-05-31 10:20:00 Nurse Visit Nurse, Roland Venegas [facility] 1..840.114 350.1.13.10 4.2.7.2.686 [id number] [facility] 2023-05-31 10:00:00 2023-05-31 10:00:00 Outpatient R LULU VENEGASMA THEO [facility] [id number] [facility] 2022-08-11 13:00:00 2022-08-11 13:10:00 Imm/Inj Visit Vaccine, [facility] Dillon Pina [facility] 1..840.114 350.1.13.10 4.2.7.2.686 [id number] [facility] 2022-08-11 13:00:00 2022-08-11 13:00:00 Outpatient R DILLON PINA [facility] [id number] [facility] 2022-08-11 00:00:00 2022-08-11 00:00:00 Orders Only Doctor Unassigned, [facility] ..840.114 350.1.13.10 4.2.7.2.686 [id number] [facility] 2015-12-16 21:06:00 2015-12-17 16:59:00 OBS Observatio n Patient Dk swanson [facility] [id number] Gerald Palomo 2014-06-29 19:15:00 2014-06-30 05:59:00 Outpt Diag Services Veroo r [facility] Outpatient Imaging [place] [id number] Gerald Friedmanann 2014-05-26 20:13:00 2014-05-28 23:00:00 Inpatient Veroo r [facility] [id number] Results Test Description Test Time Test Comments Results Result Comments Source EEG awake or drowsy routine 18:08:41 Carmenza Pack MD ? ? 02/14/2025 ?6:09 PMEEG awake or drowsy routine Date/Time: 02/14/2025 6:08 PM Performed by: Carmenza Pack MDAuthorized by: Carmenza Pack MD ?Indications: ?Indications: ?Syncope, possible seizureProcedure specific details: ? The EEG was recorded in the EEG lab. Electrodes were placed according to the international 10 - 20 system of electrode placement. The EEG underwent continuous computer analysis that consists of real-time application of programs to detect electrical events that could be considered epileptiform. All electroencephalographic events identified by the detection program were visually inspected in order to assess waveform characteristics and significance. Only computer detected events verified by visual inspection to be interictal or ictal epileptiform abnormalities are reported below and considered in the final report of the study. The waking EEG consists of moderate amplitude rhythmical alpha waves of 10 cycles per second that are maximal in the posterior head regions, attenuate with eye opening, and appear without abnormal asymmetry. Low amplitude fast activity of 20 - 30 cycles per second appears symmetrically and is maximal in the frontal and central regions. In drowsiness, low amplitude fast activity increases and moderate amplitude slow waves of 6 -- 8 cycles per second appear in the central and posterior regions without persistent asymmetry. Sleep occurred naturally. Vertex waves, positive occipital sharp transients of stages 1 and 2 sleep are noted. Hyperventilation was not performed. Photic stimulation produced symmetrical driving responses. IMPRESSIONNormal EEG in wake, drowsiness and sleep. There were no focal asymmetries. No epileptiform discharges appeared. No behavior suggestive of seizure occurred. [facility] XR cervical spine 2-3 views 17:54:05 EXAM: XR CERVICAL SPINE 2 VIEWS DATE: 02/07/2025 16:19 INDICATION: standing Uprights with brace to evaluate fracture ? COMPARISON: Cervical spine CT from outside institution obtained today at 1:30a.m. TECHNIQUE: Upright AP, open-mouth odontoid and lateral radiographs of thecervical spine DISCUSSION: The patient is now wearing an external brace, and in uprightposition. The previously described C2 and C3 fractures are only seen on thelateral radiograph, but otherwise unchanged in appearance. There is intervalgrade 2/grade 3 anterior spondylolisthesis of C2 and above with respect to C4and below (previously grade 1). No new bony, articular or soft tissueabnormality is identified. IMPRESSION:1. ?Increased anterolisthesis of C2 and above with respect to C4 and below.2. ?No other new abnormality. The findings of findings were communicated to Dr. Shubham Toth ? by TINA Cook MD via telephone with the finding acknowledged at 517:47. This report was dictated by a Process Control Specialist/Fellow/KHAI: TINA Cook MD 02/07/2025 17:51 This report was dictated by a Process Control Specialist/Fellow/Physician Insurance Sales Supervisor. Ihave personally reviewed the images as well as the interpretation and agree withthe findings. Report finalized by: Matthew Davis MD 02/07/2025 17:54Matthew Davis MD - 02/07/2025 EXAM: XR CERVICAL SPINE 2 VIEWSDATE: 02/07/2025 16:19INDICATION: standing Uprights with brace to evaluate fracture COMPARISON: Cervical spine CT from outside institution obtained today at 1:30a.m.TECHNIQUE: Upright AP, open-mouth odontoid and lateral radiographs of thecervical spineDISCUSSION: The patient is now wearing an external brace, and in uprightposition. The previously described C2 and C3 fractures are only seen on thelateral radiograph, but otherwise unchanged in appearance. There is intervalgrade 2/grade 3 anterior spondylolisthesis of C2 and above with respect to C4and below (previously grade 1). No new bony, articular or soft tissueabnormality is identified.IMPRESSION:1. Increased anterolisthesis of C2 and above with respect to C4 and below.2. No other new abnormality.The findings of findings were communicated to Dr. Anne Toth by TINA Cook MD via telephone with the finding acknowledged at 7:47.This report was dictated by a Process Control Specialist/Fellow/KHAI: TINA Cook MD 02/07/2025 17:51This report was dictated by a Process Control Specialist/Fellow/Physician Insurance Sales Supervisor. Ihave personally reviewed the images as well as the interpretation and agree withthe findings.Report finalized by: Matthew Davis MD 02/07/2025 17:54 [facility] Trauma CT CHEST ABDOMEN PELVIS W IV CONTRAST 09:41:22 EXAM: CT CHEST WITH CONTRASTEXAM: CT ABDOMEN AND PELVIS WITH CONTRAST DATE: 02/07/2025 8:15 INDICATION: Trauma ? COMPARISON: CT chest abdomen pelvis from earlier today (1:33 a.m.) TECHNIQUE: Volumetric CT of the chest, abdomen and pelvis is acquired followingintravenous administration of contrast. Axial, coronal and sagittal images areprovided. FINDINGS:Back Roll Lathe Operator: Noncontributory. Lines and tubes: None. Lower Neck: Supraclavicular soft tissues are within normal limits. 4 mm hypodense nodule in the right thyroid lobe. Thoracic Aorta and Mediastinum: No mediastinal hematoma or thoracic aortic injury. Normal heart and pericardium. ? Lungs, Pleura, Diaphragm: No pulmonary contusions. Fibrotic changes at the medial aspects of bilateral apices with bronchiectasis.Mild left focal pleural thickening along the left posterior inferior chest wall. Trace left pleural effusion noted.No pneumothorax present.No diaphragmatic injury. Liver and biliary tree: No injury.Hepatic steatosis noted. Gallbladder: Normal gallbladder. Pancreas: No injury. Spleen: No injury. Adrenals: No injury. Kidneys and ureters: No injury. 4 mm nonobstructive calyceal calculi right kidney. Bilateral simple cysts, largest measuring 2.7 cm. Bladder: No injury. Reproductive organs: No injury. Mild prostatomegaly. Gastrointestinal tract: Large hiatal hernia with entire stomach and proximal duodenum located above thediaphragm. Moderate colonic stool burden throughout the colon.No injury is identified. Peritoneum and retroperitoneum: No fluid collections or free air. Lymph nodes: Unremarkable Vasculature: No vascular injury. Soft tissues: No acute injuries. Spine/ Bones: Diffuse osteopenia noted.No acute abnormality of the spine. Chronic T2, T3 and L5 compression deformities. Sclerotic foci within T1 and T8 vertebral bodies consistent with bone islands.Multilevel degenerative changes greatest in the upper thoracic spine. No other bony injury.Diffuse idiopathic skeletal hyperostosis noted in the thoracic spine. IMPRESSION: ?No acute intra-thoracic injuries are observed. No acute intra-abdominal/pelvic injuries are identified. Large hiatal hernia with entire stomach and proximal duodenum above thediaphragm. Additional findings as described above. This report was dictated by a Process Control Specialist/Fellow/Physician Insurance Sales Supervisor. Ihave personally reviewed the images as well as the interpretation and agree withthe findings. Report finalized by: Praneeth Norris MD 02/07/2025 9:41Carlson, Praneeth Carranza MD - 02/07/2025 EXAM: CT CHEST WITH CONTRASTEXAM: CT ABDOMEN AND PELVIS WITH CONTRASTDATE: 02/07/2025 8:15 INDICATION: Trauma COMPARISON: CT chest abdomen pelvis from earlier today (1:33 a.m.)TECHNIQUE: Volumetric CT of the chest, abdomen and pelvis is acquired followingintravenous administration of contrast. Axial, coronal and sagittal images areprovided.FINDINGS:Back Roll Lathe Operator: Noncontributory.Lines and tubes: None.Lower Neck: Supraclavicular soft tissues are within normal limits. 4 mm hypodense nodule in the right thyroid lobe.Thoracic Aorta and Mediastinum: No mediastinal hematoma or thoracic aortic injury. Normal heart and pericardium. Lungs, Pleura, Diaphragm: No pulmonary contusions. Fibrotic changes at the medial aspects of bilateral apices with bronchiectasis.Mild left focal pleural thickening along the left posterior inferior chest wall.Trace left pleural effusion noted.No pneumothorax present.No diaphragmatic injury.Liver and biliary tree: No injury.Hepatic steatosis noted.Gallbladder: Normal gallbladder.Pancreas: No injury.Spleen: No injury.Adrenals: No injury.Kidneys and ureters: No injury. 4 mm nonobstructive calyceal calculi right kidney. Bilateral simple cysts, largest measuring 2.7 cm.Bladder: No injury. Reproductive organs: No injury. Mild prostatomegaly.Gastrointest inal tract: Large hiatal hernia with entire stomach and proximal duodenum located above thediaphragm. Moderate colonic stool burden throughout the colon.No injury is identified.Peritoneum and retroperitoneum: No fluid collections or free air.Lymph nodes: UnremarkableVasculature: No vascular injury.Soft tissues: No acute injuries.Spine/ Bones: Diffuse osteopenia noted.No acute abnormality of the spine. Chronic T2, T3 and L5 compression deformities. Sclerotic foci within T1 and T8 vertebral bodies consistent with bone islands.Multilevel degenerative changes greatest in the upper thoracic spine. No other bony injury.Diffuse idiopathic skeletal hyperostosis noted in the thoracic spine.IMPRESSION: No acute intra-thoracic injuries are observed.No acute intra-abdominal/pelvic injuries are identified.Large hiatal hernia with entire stomach and proximal duodenum above thediaphragm. Additional findings as described above.This report was dictated by a Process Control Specialist/Fellow/Physician Insurance Sales Supervisor. Ihave personally reviewed the images as well as the interpretation and agree withthe findings.Report finalized by: Praneeth Norris MD 02/07/2025 9:41 [facility] XR humerus 2 views left 08:31:33 EXAM: XR LEFT HUMERUS 2 VIEWSEXAM: XR LEFT SHOULDER 3 VIEWS DATE: 02/07/2025 6:31 INDICATION: Trauma ? COMPARISON: Chest x-ray dated May 26, 2014. TECHNIQUE: ?2 views of the humerus, 3 views of the shoulder FINDINGS:Diffuse osteopenia noted. Humerus: No acute fracture or malalignment is identified.Olecranon enthesophyte noted. Shoulder: No acute fracture or malalignment is identified. Moderate degenerative changes of the AC joint noted. Soft tissues: Mild atherosclerotic disease of the thoracic aorta is present. No soft tissue abnormality is identified.Thin 6 mm length metallic wire foreign body in the medial-posterior soft tissuesof the distal arm noted.Thin partially visualized 5 mm length metallic wire foreign body in theposterior soft tissues of the mid forearm noted. IMPRESSION: ?No fractures identified. Chronic/degenerative changes as described. Thin 6 mm length metallic wire foreign body in the medial-posterior soft tissuesof the distal arm.Thin partially visualized 5 mm length metallic wire foreign body in theposterior soft tissues of the mid forearm. This report was dictated by a Process Control Specialist/Fellow/Physician Insurance Sales Supervisor. Cassandra personally reviewed the images as well as the interpretation and agree withthe findings. Report finalized by: Praneeth Norris MD 02/07/2025 8:31Carlson, Praneeth Carranza MD - 02/07/2025 EXAM: XR LEFT HUMERUS 2 VIEWSEXAM: XR LEFT SHOULDER 3 VIEWSDATE: 02/07/2025 6:31INDICATION: Trauma COMPARISON: Chest x-ray dated May 26, 2014.TECHNIQUE: 2 views of the humerus, 3 views of the shoulderFINDINGS:Diffuse osteopenia noted.Humerus: No acute fracture or malalignment is identified.Olecranon enthesophyte noted.Shoulder: No acute fracture or malalignment is identified.Moderate degenerative changes of the AC joint noted.Soft tissues: Mild atherosclerotic disease of the thoracic aorta is present. No soft tissue abnormality is identified.Thin 6 mm length metallic wire foreign body in the medial-posterior soft tissuesof the distal arm noted.Thin partially visualized 5 mm length metallic wire foreign body in theposterior soft tissues of the mid forearm noted.IMPRESSION: No fractures identified.Chronic/degenera tive changes as described.Thin 6 mm length metallic wire foreign body in the medial-posterior soft tissuesof the distal arm.Thin partially visualized 5 mm length metallic wire foreign body in theposterior soft tissues of the mid forearm.This report was dictated by a Process Control Specialist/Fellow/Physician Insurance Sales Supervisor. Cassandra personally reviewed the images as well as the interpretation and agree withthe findings.Report finalized by: Praneeth Norris MD 02/07/2025 8:31 [facility] XR shoulder 2+ views left 08:31:33 EXAM: XR LEFT HUMERUS 2 VIEWSEXAM: XR LEFT SHOULDER 3 VIEWS DATE: 02/07/2025 6:31 INDICATION: Trauma ? COMPARISON: Chest x-ray dated May 26, 2014. TECHNIQUE: ?2 views of the humerus, 3 views of the shoulder FINDINGS:Diffuse osteopenia noted. Humerus: No acute fracture or malalignment is identified.Olecranon enthesophyte noted. Shoulder: No acute fracture or malalignment is identified. Moderate degenerative changes of the AC joint noted. Soft tissues: Mild atherosclerotic disease of the thoracic aorta is present. No soft tissue abnormality is identified.Thin 6 mm length metallic wire foreign body in the medial-posterior soft tissuesof the distal arm noted.Thin partially visualized 5 mm length metallic wire foreign body in theposterior soft tissues of the mid forearm noted. IMPRESSION: ?No fractures identified. Chronic/degenerative changes as described. Thin 6 mm length metallic wire foreign body in the medial-posterior soft tissuesof the distal arm.Thin partially visualized 5 mm length metallic wire foreign body in theposterior soft tissues of the mid forearm. This report was dictated by a Process Control Specialist/Fellow/Physician Insurance Sales Supervisor. Ihana maría personally reviewed the images as well as the interpretation and agree withthe findings. Report finalized by: Praneeth Norris MD 02/07/2025 8:31Praneeth Norris MD - 02/07/2025 EXAM: XR LEFT HUMERUS 2 VIEWSEXAM: XR LEFT SHOULDER 3 VIEWSDATE: 02/07/2025 6:31INDICATION: Trauma COMPARISON: Chest x-ray dated May 26, 2014.TECHNIQUE: 2 views of the humerus, 3 views of the shoulderFINDINGS:Diffuse osteopenia noted.Humerus: No acute fracture or malalignment is identified.Olecranon enthesophyte noted.Shoulder: No acute fracture or malalignment is identified.Moderate degenerative changes of the AC joint noted.Soft tissues: Mild atherosclerotic disease of the thoracic aorta is present. No soft tissue abnormality is identified.Thin 6 mm length metallic wire foreign body in the medial-posterior soft tissuesof the distal arm noted.Thin partially visualized 5 mm length metallic wire foreign body in theposterior soft tissues of the mid forearm noted.IMPRESSION: No fractures identified.Chronic/degenera tive changes as described.Thin 6 mm length metallic wire foreign body in the medial-posterior soft tissuesof the distal arm.Thin partially visualized 5 mm length metallic wire foreign body in theposterior soft tissues of the mid forearm.This report was dictated by a Process Control Specialist/Fellow/Physician Insurance Sales Supervisor. Cassandra personally reviewed the images as well as the interpretation and agree withthe findings.Report finalized by: Praneeth Norris MD 02/07/2025 8:31 [facility] 08[facility]23:00* Test Item Value Reference Range Interpretation Comme nts AGAP (test code = AGAP) 15.9 10.0-20.0 [facility] H[id number] 08:23:00* Test Item Value Reference Range Interpretation Comme nts MCV (test code = MCV) 91.3 80.0-94.0 [facility] [id number] 07:35:00* Test Item Value Reference Range Interpretation Comme nts eGFR (test code = eGFR) 77 [facility] HospitalKqmfrxfRLCUSRRARQ1302-30-49 07:35:00* Test Item Value Reference Range Interpretation Comme nts WBC (test code = WBC) 5.3 3.7-10.4 [facility] AND [id number] 05:39:00* Test Item Value Reference Range Interpretation Comme nts UA Urobilinogen (test code = UA Urobilinogen) <=1.0 mg/dL 0.1-1.0 [facility] [id number] 21:58:00* Test Item Value Reference Range Interpretation Comme nts Hgb A1C (test code = Hgb A1C) 5.8 [facility] HospitalnPario [id number] 21:58:00* Test Item Value Reference Range Interpretation Comme nts Bili Total (test code = Bili Total) 0.9 0.2-1.3 [facility] [id number] 21:58:00* Test Item Value Reference Range Interpretation Comme nts RBC (test code = RBC) 5.22 4.70-6.10 [facility] [id number] 21:58:00* Test Item Value Reference Range Interpretation Comme nts CHD Risk (test code = CHD Risk) 2.39 4.00-7.30 [facility] HospitalURINE AND [id number] 14:16:17* Test Item Value Reference Range Interpretation Comme nts UA Sq Epi (test code = UA Sq Epi) None Seen [facility] HospitalCHEM [id number] 21:16:00* Test Item Value Reference Range Interpretation Comme nts POC Creatinine (test code = POC Creatinine) 1.0 0.5-1.4 [facility] HospitalCARDIAC [id number] 20:19:00* Test Item Value Reference Range Interpretation Comme nts Troponin-I (test code = Troponin-I) no gt <=0.40 [facility] HospitalCHEM [id number] 20:19:00* Test Item Value Reference Range Interpretation Comme nts eGFR (test code = eGFR) 82 [facility] HospitalIudcoxjDPXJMPJOMQ4039-08-78 20:19:00* Test Item Value Reference Range Interpretation Comme nts Basophils # (test code = Basophils #) 0.0 <=0.2 [facility] Notes The patient is an 89-year-old male presenting for follow-up after recent fallsHe was recently seen in the ER after a fall that resulted in a head lacerationPast Diagnostic Results:Neck: (+) neck pain Date/Time Note Provider Source 2025-02-16 11:32:46 [facility] 2025-02-16 11:32:46 Carmenza Pack MD - 02/16/2025 10:45 AM CDT History of Present Illness Syncope and neck fractures. He is accompanied by his daughter, who provides additional history. The patient has experienced multiple recent falls, resulting in neck fractures and shoulder injuries. He is currently using a walker and a neck collar for support. The collar provides some relief but becomes uncomfortable around 3:00 AM, prompting him to remove it temporarily. requiring [place]. During this visit, he underwent two CT scans and was advised to follow up with a insulation worker apprentice to rule out cardiac causes of syncope. His daughter reports that the ER physician suspected vasovagal syncope. Since then, she has been ensuring he eats well, stays hydrated, and stands up slowly, which has reportedly prevented further episodes. daughter notes significant bruising and pain in the shoulder area, which she attributes to this fall. She believes he fell due to standing up too quickly and not having eaten during the prolonged ER visit. - EEG: Normal. - CT Scans (2): Conducted during recent ER visit. Allergen Reaction Noted Phenobarbital 02/07/2025 Prednisone 10/31/2024 atorvastatin, aspirin, levothyroxine, lisinopril, multiple vitamin, multiple vitamins-minerals, and sulfamethoxazole-trimethoprim. Musculoskeletal: (+) shoulder pain Skin: (+) bruising 02/16/25 1044 BP: 156/78 Pulse: 55 Resp: 16 Temp: 36.9 ?C (98.4 ?F) SpO2: 95% Mental Status Awake and alert. Speech is normal. CN II: Visual acuity is normal. CN III, IV, : Extraocular movements intact bilaterally. Pupils equal round and reactive to light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 examination to the most distal [...] arthritis - Pain - well controlled with usps-pas-rdzpdms NSAIDs - Cast - patient defers, understands [...] legally responsible person has agreed to proceed. [facility]2025-04-30 14:14:00Upcoming Encounters Health Maintenance Due Date Last Done [...] on patient's age to complete this topic [facility] HospitalPdbojuw1227-90-89 14:14:00 Diagnosis Abnormal foot finding - Karey colvin [facility] HospitalNgejkrp4458-72-87 14:14:00 [facility] HospitalOjlefxc2838-13-99 14:13:59* Luis A Chavez, ANUJ - 11/08/2024 1:30 PM CDT [...] hair growth NEUROLOGICAL: (+) sensation with 5.07 Meridian Casey monofilament examination to the most distal [...] arthritis - Pain - well controlled with vpbf-opx-uxfqexp NSAIDs - Cast - patient defers, understands [...] legally responsible person has agreed to proceed. [facility] HospitalUtqlzaw2517-82-89 14:13:59Upcoming Encounters Health Maintenance Due Date Last [...] on patient's age to complete this topic [facility] HospitalEzpwlnb8637-85-16 14:13:59 Diagnosis Abnormal foot finding - Prim marii [facility] HospitalEguqqfl9817-94-75 14:13:59 [facility] HospitalRhrcdnv3503-36-83 12:34:05* Luis A Pimentel Scott, DPDelvin - 10/16/2024 11:30 AM CDT CHIEF COMPLAINT: [...] hair growth NEUROLOGICAL: (+) sensation with 5.07 Meridian Casey monofilament examination to the most distal [...] arthritis - Pain - well controlled with zbwq-jgw-xvxacxj NSAIDs - Cast - patient defers, understands [...] responsible person has agreed to proceed. [facility] Detaorc7391-42-23 12:34:05Upcoming Encounters Health Maintenance Due Date Last [...] on patient's age to complete this topic [facility] HospitalAjurzkm2999-95-30 12:34:05 Diagnosis Abnormal foot finding - Prim marii [facility] HospitalDkjtwdg1608-51-90 12:34:05 [facility] HospitalUpfmavt8732-87-21 12:34:05* Luis A Chavez, DPM - 10/16/2024 11:30 AM CDT CHIEF [...] hair growth NEUROLOGICAL: (+) sensation with 5.07 Meridian Casey monofilament examination to the most distal [...] arthritis - Pain - well controlled with udmu-jfm-qeuayrw NSAIDs - Cast - patient defers, understands [...] legally responsible person has agreed to proceed. Jaime [facility] HospitalMogbjep1073-41-60 12:34:05Upcoming Encounters Health Maintenance Due Date Last [...] on patient's age to complete this topic [facility] HospitalSrreawc1091-61-19 12:34:05 Diagnosis Abnormal foot finding - Prim marii [facility] HospitalApvdrbd2774-84-75 12:34:05 [place] 192315-03-31 11:16:15* Luis A Chavez, DPDelvin - 10/09/2024 10:50 AM CDT CHIEF COMPLAINT: [...] hair growth NEUROLOGICAL: (+) sensation with 5.07 Meridian Casey monofilament examination to the most distal [...] fracture - Pain - well controlled with cink-lfa-efapgai NSAIDs - Cast - patient defers, understands [...] legally responsible person has agreed to proceed. [facility] HospitalYecbcdo9472-60-61 11:16:15Upcoming Encounters Health Maintenance Due Date Last [...] on patient's age to complete this topic [facility] HospitalAvyhfzh0926-24-94 11:16:15 Diagnosis Abnormal foot finding - Prim marii [facility] HospitalXzbwykl0464-76-08 11:16:15 [place] 192315-03-31 11:16:14* Luis A Chavez DPM - 10/09/2024 10:50 AM CDT CHIEF COMPLAINT: [...] hair growth NEUROLOGICAL: (+) sensation with 5.07 Meridian Casey monofilament examination to the most distal [...] fracture - Pain - well controlled with lbod-guf-kyajgib NSAIDs - Cast - patient defers, understands [...] legally responsible person has agreed to proceed. Jaime [facility] HospitalBvshsvb1189-98-06 11:16:14Upcoming Encounters Health Maintenance Due Date Last [...] on patient's age to complete this topic [place] 192315-03-31 11:16:14 Diagnosis Abnormal foot finding - Prim marii [facility] HospitalUhfsdvy3404-81-39 11:16:14 [place] 192315-03-17 13:33:12 [place] 192315-03-17 13:33:12* Luis A Chavez, ANUJ - 09/25/2024 12:50 PM CDT [...] hair growth NEUROLOGICAL: (+) sensation with 5.07 Meridian Casey monofilament examination to the most distal [...] fracture - Pain - well controlled with fgyx-zkd-dtqqcvt NSAIDs - Cast - patient defers, understands [...] legally responsible person has agreed to proceed. [facility]Llojhuv2505-95-87 13:33:12Upcoming Encounters Health Maintenance Due Date Last [...] on patient's age to complete this topic [facility] SouthSphkgix6533-45-95 13:33:12 Diagnosis Abnormal foot finding - Prim marii [facility]
[2025-02-23] MEDS ORDERED: NA CHLORIDE 0.9% 1,000 ML ONE (12:00)
--- NOTE | 2025-02-23 12:04 | ER ---
Nurse's Notes [facility] Name: Brian Brantley Age: 89 yrs Sex: Male : 1935 Arrival Date: 02/23/2025 Time: 11:07 Bed 13 Private MD: Diagnosis: Dysphagia, unspecified;Other cervical disc degeneration Presentation: 02/23 11:29 Chief complaint: Patient states: Trouble swallowing for 3 days. Neck brace for 2 weeks. ll1 Falls end of November and multiple since. Possible vasovagal symptoms. Coronavirus screen: Client denies travel out of the [place] in the last 14 days. At this time, the client does not indicate any symptoms associated with coronavirus-19. Ebola Screen: Patient denies travel to an Ebola-affected area in the 21 days before illness onset. Initial Sepsis Screen: Does the patient meet any 2 criteria? No. Patient's initial sepsis screen is negative. Does the patient have a suspected source of infection? No. Patient's initial sepsis screen is negative. Risk Assessment: Do you want to hurt yourself or someone else? Patient reports no desire to harm self or others. Onset of symptoms was February 21, 2025. 11:29 Method Of Arrival: Ambulatory ll1 11:29 Acuity: RONNY 3 ll1 Historical: - Allergies: 11:14 Phenobarbital; ll1 11:14 Prednisone; ll1 - PMHx: 11:14 Cataracts; CVA; Hyperlipidemia; Hypertension; throat cancer; ll1 - Immunization history:: Adult Immunizations up to date. - Infectious Disease History:: Denies. - Social history:: Smoking status: unknown. Screenin:56 [facility] ED Fall Risk Assessment (Adult) History of falling in the last 3 months, kc6 including since admission Yes- fall prone (multiple falls) (3 pts) Confusion or Disorientation No (0 pts) Intoxicated or Sedated No (0 pts) Impaired Gait No (0 pts) Mobility Assist Device Used Yes (1 pt) Altered Elimination No (0 pt) Score/Fall Risk Level 3 or more points = High Risk Oriented to surroundings. Abuse screen: Denies threats or abuse. Denies injuries from another. Nutritional screening: No deficits noted. Tuberculosis screening: No symptoms or risk factors identified. Vital Signs: 11:29 BP 151 / 101; Pulse 58; Resp 17; Temp 98.7; Pulse Ox 98% ; Weight 55.34 kg; Height 5 ll1 ft. 3 in. ; Pain 0/10; 11:29 Body Mass Index 21.61 (55.34 kg, 160.02 cm) ll1 11:29 Pain Scale: Adult ll1 ED Course: 11:11 Patient arrived in ED. al6 11:14 Arm band placed on. ll1 11:18 Luc Owusu MD is Attending Physician. cindy 11:31 Triage completed. ll1 11:50 Jory Augustin, LEYLA is Primary Nurse. kc6 11:55 Patient has correct armband on for positive identification. Bed in low position. Call kc6 light in reach. Side rails up X 1. Adult w/ patient. Pulse ox on. NIBP on. Door closed. Noise minimized. Lights dimmed. Pillow given. Verbal reassurance given. 11:55 Patient maintains SpO2 saturation greater than 95% on room air. kc6 12:06 Initial lab(s) drawn, by ED staff, sent to lab. EKG done, by ED staff, reviewed by walter Owusu MD. Inserted saline lock: 20 gauge in left antecubital area, using aseptic technique. Blood collected. Flushed with 10 mL NS. 12:15 CT Head C Spine In Process Unspecified. EDMS 12:23 XRAY Chest (1 view) In Process Unspecified. EDMS 12:[address] Owusu with Bea from the [facility]. eb 12:52 [address] approval given to Dr. Owusu by Bea Alfred/ patient has been eb accepted to [facility] ER/ Dr. Heather Kirk has accepted the patient in transfer/ report to be called to [phone]. 13:48 Assisted to bathroom. kc6 Administered Medications: 12:32 Drug: NS 0.9% IV 1000 ml IV at 1000 ml once; to be given as a bolus over 60 minutes kc6 Route: IV; Rate: 1000 ml; Site: left antecubital; 13:48 Follow up: Response: No adverse reaction; IV Status: Completed infusion; IV Intake: kc6 1000ml Intake: 13:48 IV: 1000ml; Total: 1000ml. kc6 Outcome: 12:03 ER care complete, transfer ordered by . cindy 15:01 Patient left the ED. eb Signatures: Dispatcher [employer] Luc Wild MD MD cha Botello, Elizabeth eb Lewis, Lynsay, RN RN ll1 Jory Augustin RN RN kc6 Christina Colon6
--- NOTE | 2025-02-23 12:04 | EDPHYS ---
Physician Documentation [facility] Name: Brian Brantley Age: 89 yrs Sex: Male : 1935 Arrival Date: 02/23/2025 Time: 11:07 Bed 13 Private MD: TRUNG Physician Luc Owusu HPI: 02/23 11:58 This 89 yrs old Male presents to ER via Ambulatory with complaints of cindy Difficulty Swallowing. 11:58 This 89 yrs old Male presents to ER via Ambulatory with complaints of Difficulty cindy Swallowing. 11:58 The patient presents with sore throat, dysphagia, of solids, of liquids, of both solids cindy and liquids. The patient describes throat pain as constant. Onset: The symptoms/episode began/occurred 3 day(s) ago. Severity of symptoms: At their worst the symptoms were mild, moderate, in the emergency department the symptoms have improved, mildly. Modifying factors: The symptoms are alleviated by nothing, the symptoms are aggravated by fluids, foods, Patient's oral intake status: good. Associated signs and symptoms: The patient has no apparent associated signs or symptoms. The patient has not experienced similar symptoms in the past. Historical: - Allergies: 11:14 Phenobarbital; ll1 11:14 Prednisone; ll1 - PMHx: 11:14 Cataracts; CVA; Hyperlipidemia; Hypertension; throat cancer; ll1 - Immunization history:: Adult Immunizations up to date. - Infectious Disease History:: Denies. - Social history:: Smoking status: unknown. ROS: 11:59 Constitutional: Negative for fever, chills, and weight loss, Eyes: Negative for injury, cindy pain, redness, and discharge, Neck: Negative for injury, pain, and swelling, Cardiovascular: Negative for chest pain, palpitations, and edema, Respiratory: Negative for shortness of breath, cough, wheezing, and pleuritic chest pain, Abdomen/GI: Negative for abdominal pain, nausea, vomiting, diarrhea, and constipation, Back: Negative for injury and pain, : Negative for injury, bleeding, discharge, and swelling, MS/Extremity: Negative for injury and deformity, Skin: Negative for injury, rash, and discoloration, Neuro: Negative for headache, weakness, numbness, tingling, and seizure, Psych: Negative for depression, anxiety, suicide ideation, homicidal ideation, and hallucinations, Allergy/Immunology: Negative for hives, rash, and allergies, Endocrine: Negative for neck swelling, polydipsia, polyuria, polyphagia, and marked weight changes, Hematologic/Lymphatic: Negative for swollen nodes, abnormal bleeding, and unusual bruising, 11:59 ENT: Positive for sore throat, Exam: 11:59 Constitutional: This is a well developed, well nourished patient who is awake, alert, cindy and in no acute distress. Head/Face: Normocephalic, atraumatic. Eyes: Pupils equal round and reactive to light, extra-ocular motions intact. Lids and lashes normal. Conjunctiva and sclera are non-icteric and not injected. Cornea within normal limits. Periorbital areas with no swelling, redness, or edema. Neck: Trachea midline, no thyromegaly or masses palpated, and no cervical lymphadenopathy. Supple, full range of motion without nuchal rigidity, or vertebral point tenderness. No Meningismus. Chest/axilla: Normal chest wall appearance and motion. Nontender with no deformity. No lesions are appreciated. Cardiovascular: Regular rate and rhythm with a normal S1 and S2. No gallops, murmurs, or rubs. Normal PMI, no JVD. No pulse deficits. Respiratory: Lungs have equal breath sounds bilaterally, clear to auscultation and percussion. No rales, rhonchi or wheezes noted. No increased work of breathing, no retractions or nasal flaring. Abdomen/GI: Soft, non-tender, with normal bowel sounds. No distension or tympany. No guarding or rebound. No evidence of tenderness throughout. Back: No spinal tenderness. No costovertebral tenderness. Full range of motion. Male : Normal genitalia with no discharge or lesions. Skin: Warm, dry with normal turgor. Normal color with no rashes, no lesions, and no evidence of cellulitis. MS/ Extremity: Pulses equal, no cyanosis. Neurovascular intact. Full, normal range of motion., bilateral aka Neuro: Awake and alert, GCS 15, oriented to person, place, time, and situation. Cranial nerves II-XII grossly intact. Motor strength 5/5 in all extremities. Sensory grossly intact. Cerebellar exam normal. Normal gait. Psych: Awake, alert, with orientation to person, place and time. Behavior, mood, and affect are within normal limits. 11:59 ENT: dysphagia. 12:18 ECG was reviewed by the Attending Physician. [facility] Vital Signs: 11:29 BP 151 / 101; Pulse 58; Resp 17; Temp 98.7; Pulse Ox 98% ; Weight 55.34 kg; Height 5 ll1 ft. 3 in. ; Pain 0/10; 11:29 Body Mass Index 21.61 (55.34 kg, 160.02 cm) ll1 11:29 Pain Scale: Adult ll1 MDM: 11:18 Medical Screening Exam initiated cindy 12:00 Differential diagnosis: chemical burn, epiglottitis, group A strep tonsillitis, cindy influenza, kawasaki's disease laryngitis, lymphoma, mononucleosis, peritonsillar abscess chlamydia pharyngitis, pharyngitis, radiation upper respiratory infection, uvulitis. Data reviewed: vital signs, nurses notes, lab test result(s), EKG, radiologic studies, plain films. Consideration of Admission/Observation Patient was admitted/placed on observation. Escalation of care including admission/observation considered. I considered the following discharge prescriptions or medication management in the emergency department Medications were administered in the Emergency Department. See MAR. Independent interpretation of the following test(s) in the Emergency Department EKG: See my EKG interpretation above. Test considered but Not performed: MRI: no mri brai/ neck. 12:03 ED course: pt has cervical fractures and natasha is whose following her. [facility] 02/23 11:55 Order name: Basic Metabolic Panel; Complete Time: 12:47 [facility] 02/23 11:55 Order name: CBC with Diff; Complete Time: 12:47 [facility] 02/23 11:55 Order name: LFT's; Complete Time: 12:47 [facility] 02/23 11:55 Order name: Magnesium; Complete Time: 12:47 [facility] 02/23 11:55 Order name: NT PRO-BNP; Complete Time: 12:47 [facility] 02/23 11:55 Order name: Troponin HS; Complete Time: 12:47 [facility] 02/23 11:55 Order name: XRAY Chest (1 view); Complete Time: 12:47 [facility] 02/23 11:55 Order name: CT Head C Spine; Complete Time: 12:47 [facility] 02/23 11:55 Order name: EKG; Complete Time: 11:55 [facility] 02/23 11:55 Order name: Cardiac monitoring; Complete Time: 12:06 [facility] 02/23 11:55 Order name: EKG - Nurse/Tech; Complete Time: 12: [facility] 02/23 11:55 Order name: IV Saline Lock; Complete Time: 12: [facility] 02/23 11:55 Order name: Labs collected and sent; Complete Time: 12: [facility] 02/23 11:55 Order name: O2 Per Protocol; Complete Time: 11:56 [facility] 02/23 11:55 Order name: O2 Sat Monitoring; Complete Time: 11:56 [facility] EC:18 Rate is 57 beats/min. Rhythm is regular. QRS [place] is Normal. [place] interval is normal. QRS cindy interval is normal. QT interval is normal. No Q waves. T waves are Normal. No ST changes noted. Clinical impression: Sinus bradycardia and No evidence of ischemia. Interpreted by me. Reviewed by me. Administered Medications: 12:32 Drug: NS 0.9% IV 1000 ml IV at 1000 ml once; to be given as a bolus over 60 minutes kc6 Route: IV; Rate: 1000 ml; Site: left antecubital; 13:48 Follow up: Response: No adverse reaction; IV Status: Completed infusion; IV Intake: kc6 1000ml Disposition Summary: 02/23/25 12:03 Transfer Ordered Notes: Transfer Location: [facility] cindy Reason: Higher level of care cindy Condition: Fair cindy Problem: new cindy Symptoms: have improved cindy Accepting Physician: neurosurgery(02/23/25 15:01) eb Diagnosis - Dysphagia, unspecified cindy - Other cervical disc degeneration cindy Forms: - Medication Reconciliation Form cindy - SBAR form cindy Signatures: Dispatcher [employer] Luc Wild MD MD cha Botello, Elizabeth eb Lewis, Lynsay RN RN ll1 Jory Augustin RN RN kc6 Corrections: (The following items were deleted from the chart) 15:01 12:03 neurosurgery cindy eb
[2025-02-23 12:10] LABS: Absolute Lymphocytes (CBC) 0.6 K/uL (0.7-4.9); Hematocrit 40.4 % (39.6-49.0); Hemoglobin 13.4 g/dL (13.6-17.9); MCH 31.0 pg (27.0-35.0); MCHC 33.2 g/dL (32.0-36.0); MCV 93.4 fL (80-100); MPV 6.8 fL (7.6-11.3); Nucleated RBC Absolute Count 0.0 (0-0); Nucleated Red Blood Cells % 0.1 % (0-0); RBC Red Blood Cell Count 4.33 M/uL (4.33-5.43); White Blood Count 6.30 thou/uL (4.3-10.9)
[2025-02-23 12:30] LABS: ALT/SGPT 24.0 U/L (16-61); AST/SGOT 22.0 U/L (15-37); Albumin 3.5 g/dL (3.4-5.0); Albumin/Globulin Ratio 1.1 (1.1-1.8); Alkaline Phosphatase 99.0 U/L (45-117); Anion Gap 8.1 mEq/L (5.0-15.0); BUN Blood Urea Nitrogen 20.0 mg/dL (7-18); Bilirubin Indirect, Calculated 0.7 mg/dL (0.2-0.8); Globulin 3.1 g/dL (2.3-3.5); Glucose Level 101.0 mg/dL (74-106); Magnesium 2.1 mg/dL (1.6-2.4); NT PRO-BNP 204.0 pg/mL (<450); Potassium 4.1 mEq/L (3.5-5.1); Troponin High Sensitivity 7.0 pg/mL (<58.9)
--- NOTE | 2025-02-23 12:32 | RAD REPORT ---
EXAM: Chest Single View HISTORY: 89 years Male COUGH COMPARISON: 11/03/2023 FINDINGS: LUNGS/PLEURA: The lungs are clear. No pleural effusions or pneumothorax. No pulmonary edema. CARDIAC/MEDIASTINUM: The cardiac silhouette is within normal limits. UPPER ABDOMEN: Hiatal hernia. BONES: No acute abnormality. LINES/TUBES/OTHER: N/A IMPRESSION: No evidence of acute cardiopulmonary disease. No significant change from prior.
--- NOTE | 2025-02-23 12:32 | RAD REPORT ---
EXAMINATION: Head C Spine Mpr Wo Con CLINICAL INDICATION: Male, 89 years old. PAIN TECHNIQUE: Axial CT images from the skull base to the vertex without intravenous contrast. Axial CT i mages through the cervical spine were obtained without intravenous contrast. Sagittal and coronal reformatted images were created from the data set. Coronal and sagittal reformatted images were creat ed from the data set. One or more of the following dose reduction techniques were used: Automated exposure control, adjustment of the mA and/or kV according to patient size, and/or iterative reconstr uction. Unless otherwise specified, incidental findings do not require dedicated imaging follow-up. [id number]. COMPARISON: No prior exams FINDINGS: Head: INTRACRANIAL: No acute intracranial hemorrhage. No acute large vascular territory infarct. No hydroce phalus. No mass effect or midline shift. Mild chronic small vessel ischemic changes.Moderate cerebral atrophy. VASCULATURE: No visualized abnormalities in the arteries or dural venous sinuses. SCALP/SKULL: No calvarial fracture identified. No acute soft tissue abnormality. SINUSES: The visualized paranasal sinuses are mostly clear. Sclerosis at the right mastoid is unchang ed since at least 2019. Cervical spine: ALIGNMENT: Unchanged alignment. Similar anterolisthesis of C2 on C3 and trace retrolisthesis of C4 on C5. BONE: C3 fracture with up to 70% loss of height centrally and extending into the posterior elements i s unchanged. There is similar widening at the anterior disc space at C2-3. Bilateral laminar fractures at C2. Compression deformities at T2 and T3 are similar. DEGENERATIVE: Multilevel cervical spondylosis with evidence of bilateral neural foraminal narrowing. No high grade central spinal stenosis. SOFT TISSUE: Postoperative changes are present at the right neck. Carotid artery calcifications. Post radiation changes in the lung apices. IMPRESSION: No acute intracranial abnormality. Subacute C2 and C3 fractures with similar alignment to 02/07/2025. No acute fracture or change in alig nment involving the cervical spine.
[2025-02-23 16:51] VITALS: BP 151/101; TEMP 98.7; O2SAT 98
== END 2025-02-23 15:01 | disposition short-term general hospital (02) ==
LOC: ER 11:07
DX: R13.10 Dysphagia, unspecified (principal); M50.30 Other cervical disc degeneration, unspecified cervical region; Z85.818 Personal history of malignant neoplasm of other sites of lip, oral cavity, and pharynx
CPT/HCPCS: 93005; 85025; 80048; 36415; 83735; 80076; 84484; 83880; 70450; 72125; 71045; 96360; 99284; J7030